=== PATIENT | male | born 1965 | race Caucasian/White ===

== ENCOUNTER 2018-01-23 10:09 | Inpatient (IN) | payer SELFPAY ==
[2018-01-23] VITALS (8 sets, daily range): BP systolic 126–171; BP diastolic 64–98; PULSE 58–81; RESP 16–20; TEMP 96.5–98.1; O2SAT 95–98
[~2018-01-23] VITALS: Ht 182.9 cm; Wt 84.9 kg
[~2018-01-23 10:09] MED LIST: IBUP800T23 PO; LISI-360 PO; ROBA750T3 PO
--- NOTE | 2018-01-23 10:48 | PD ---
HPI Chief Complaint: Abdominal Pain Time Seen by Provider: 10:43 Travel History International Travel<30 days: No Contact w/Intl Traveler<30days: No Traveled to known affect area: No History of Present Illness HPI 52-year-old male came to the emergency room brought by his for abdominal pain mostly localized in the right upper quadrant area without any radiation for past 2 months. Patient says it is progressively worsening. He has also lost 45 pounds. He does not have a primary care and wanted to be eventually checked out today. Vital signs are stable. Patient used to be an alcoholic but has been sober for 5 years. He denies doing any IV drug abuse. No history of nausea or vomiting. No history of diarrhea. Patient does not take any daily medications. He describes his stool to be pale colored for past few days. says his urine has been really dark brown in color. FORMERLY [facility] Past Medical History Narrative Medical List of his past medical, surgical, social and family history reviewed from the nursing note Anxiety: Yes Cardiovascular Problems: Yes (ENLARGED HEART) Genitourinary: Yes (CYST ON KIDNEY) Hypertension: Yes Past Surgical History Abdominal Surgery: Yes (HERNIA REPAIR) Tonsillectomy: Yes Other Surgery: Yes (HERNIA) Social History Alcohol Use: No (SOBER X5 YEARS) Tobacco Use: Yes (1/2PPD) Substance Use: Yes (MARIJUANA) Allergies-Medications (Allergen,Severity, Reaction): Coded Allergies: No Known Allergies (Unverified Adverse Reaction, Unknown, 01/23/18) Comments List of his allergies reviewed from the nursing note. Reported Meds & Prescriptions Reported Meds & Active Scripts Active No Active Prescriptions or Reported Medications Narrative Medication List of his home medications reviewed from the nursing note Review of Systems Except as stated in HPI: all other systems reviewed are Neg Gastrointestinal: Positive: Abdominal Pain Physical Exam Narrative GENERAL: Awake, alert, moderate to SKIN: Focused skin assessment warm/dry. HEAD: Atraumatic. Normocephalic. EYES: Pupils equal and round. Scleral icterus present. No injection or drainage. ENT: No nasal bleeding or discharge. Mucous membranes pink and moist. NECK: Trachea midline. No JVD. CARDIOVASCULAR: Regular rate and rhythm. No murmur appreciated. RESPIRATORY: No accessory muscle use. Clear to auscultation. Breath sounds equal bilaterally. GASTROINTESTINAL: Abdomen soft, tender in the right upper quadrant and right lumbar area, nondistended. Liver was palpable about 7 cm below the costal margin. MUSCULOSKELETAL: No obvious deformities. No clubbing. No cyanosis. No edema. NEUROLOGICAL: Awake and alert. No obvious cranial nerve deficits. Motor grossly within normal limits. Normal speech. PSYCHIATRIC: Appropriate mood and affect; insight and judgment normal. Data Data Last Documented VS Vital Signs Date Time Temp Pulse Resp B/P (MAP) Pulse Ox O2 Delivery O2 Flow Rate FiO2 01/23/18 13:20 67 20 133/77 (95) 96 01/23/18 10:17 98.1 Orders Orders Complete Blood Count With Diff (01/23/18 10:52) Comprehensive Metabolic Panel (01/23/18 10:52) Lipase (01/23/18 10:52) Urinalysis - C+S If Indicated (01/23/18 10:52) Ct Abd/Pel W Iv Contrast(Rout) (01/23/18 10:52) Iv Access Insert/Monitor (01/23/18 10:52) Ecg Monitoring (01/23/18 10:52) Oximetry (01/23/18 10:52) Sodium Chlor 0.9% 1000 Ml Inj (Ns 1000 M (01/23/18 10:52) Sodium Chloride 0.9% Flush (Ns Flush) (01/23/18 11:00) Direct Bilirubin (01/23/18 10:52) Afp, Tumor Marker (01/23/18 10:52) Iohexol 350 Inj (Omnipaque 350 Inj) (01/23/18 11:59) Admit Order (Ed Use Only) (01/23/18 13:21) Labs Laboratory Tests Test 01/23/18 11:10 01/23/18 12:15 White Blood Count 5.1 TH/MM3 Red Blood Count 4.49 MIL/MM3 Hemoglobin 14.0 GM/DL Hematocrit 41.4 % Mean Corpuscular Volume 92.1 FL Mean Corpuscular Hemoglobin 31.2 PG Mean Corpuscular Hemoglobin Concent 33.9 % Red Cell Distribution Width 17.0 % Platelet Count 135 TH/MM3 Mean Platelet Volume 9.7 FL Neutrophils (%) (Auto) 63.2 % Lymphocytes (%) (Auto) 23.5 % Monocytes (%) (Auto) 8.3 % Eosinophils (%) (Auto) 1.7 % Basophils (%) (Auto) 3.3 % Neutrophils # (Auto) 3.2 TH/MM3 Lymphocytes # (Auto) 1.2 TH/MM3 Monocytes # (Auto) 0.4 TH/MM3 Eosinophils # (Auto) 0.1 TH/MM3 Basophils # (Auto) 0.2 TH/MM3 CBC Comment AUTO DIFF Differential Comment AUTO DIFF CONFIRMED Platelet Estimate LOW Platelet Morphology Comment NORMAL Target Cells 1+ Blood Urea Nitrogen 9 MG/DL Creatinine 0.63 MG/DL Random Glucose 113 MG/DL Total Protein 8.4 GM/DL Albumin 3.2 GM/DL Calcium Level 8.7 MG/DL Alkaline Phosphatase 247 U/L Aspartate Amino Transf (AST/SGOT) 297 U/L Alanine Aminotransferase (ALT/SGPT) 214 U/L Total Bilirubin 3.7 MG/DL Direct Bilirubin 2.9 MG/DL Sodium Level 139 MEQ/L Potassium Level 3.8 MEQ/L Chloride Level 106 MEQ/L Carbon Dioxide Level 24.0 MEQ/L Anion Gap 9 MEQ/L Estimat Glomerular Filtration Rate 133 ML/MIN Lipase 279 U/L Urine Collection Type VOIDED Urine Color YELLOW Urine Turbidity CLEAR Urine pH 6.0 Urine Specific [place] 1.010 Urine Protein NEG mg/dL Urine Glucose (UA) NEG mg/dL Urine Ketones NEG mg/dL Urine Occult Blood NEG Urine Nitrite NEG Urine Bilirubin NEG Urine Urobilinogen 0.2 MG/DL Urine Leukocyte Esterase NEG Urine WBC 0-2 /hpf Urine Squamous Epithelial Cells 0-1 /hpf Urine Mucus RARE /lpf Microscopic Urinalysis Comment CULT NOT INDICATED Tumor Marker Alpha Fetoprotein 138.0 NG/ML MDM Medical Decision Making Medical Screen Exam Complete: Yes Emergency Medical Condition: Yes Medical Record Reviewed: Yes Differential Diagnosis Liver carcinoma, cholangiocarcinoma, obstructive jaundice Narrative Course 2:01 PM blood test results show elevated liver function test and direct hyperbilirubinemia. CT scan shows portal hypertension with portal vein thrombosis and edema of the ascending colon and gallbladder wall. Patient does not have a primary care or a GI specialist. I decided to admit him so that he can be evaluated by GI and possibly get an ERCP. The hospitalist has accepted the case. Procedures EKG Prior to Arrival: No Diagnosis Primary Impression: Cirrhosis Qualified Codes: K74.69 - Other cirrhosis of liver Additional Impressions: Portal hypertension Obstructive jaundice Portal vein thrombosis Elevated liver enzymes Admitting Information Admitting Physician Requests: Admit Scripts No Active Prescriptions or Reported Meds Emmie,Shravanti R. MD Jan 23, 2018 10:48
[2018-01-23] MEDS ORDERED: SODIUM CHLOR 0.9% 1000 ML INJ 1,000 ML IV SCH (10:52)
[2018-01-23] MEDS ORDERED: SODIUM CHLORIDE 0.9% FLUSH 10 ML FLUSH IV FLUSH PRN ×2 (11:00→14:00)
[2018-01-23 11:27] LABS: AUTOMATED NEUTROPHIL # 3.2 TH/MM3 (1.8-7.7); BASOPHIL # 0.2 TH/MM3 (0-0.2); BASOPHIL % 3.3 % (0.0-2.0); EOSINOPHIL # 0.1 TH/MM3 (0-0.4); EOSINOPHIL % 1.7 % (0.0-4.0); HEMATOCRIT 41.4 % (39.0-51.0); LYMPH % 23.5 % (9.0-44.0); LYMPHOCYTE # 1.2 TH/MM3 (1.0-4.8); MEAN CELL VOLUME 92.1 FL (80.0-100.0); MEAN CORPUSCULAR HEMOGLOBIN 31.2 PG (27.0-34.0); MEAN CORPUSCULAR HGB CONC 33.9 % (32.0-36.0); MEAN PLATELET VOLUME 9.7 FL (7.0-11.0); MONO % 8.3 % (0.0-8.0); MONOCYTE # 0.4 TH/MM3 (0-0.9); NEUT % 63.2 % (16.0-70.0); PLATELET COUNT 135 TH/MM3 (150-450); RED BLOOD COUNT 4.49 MIL/MM3 (4.50-5.90); WHITE BLOOD COUNT 5.1 TH/MM3 (4.0-11.0)
[2018-01-23 11:34] LABS: CHLORIDE 106 MEQ/L (98-107); SODIUM (NA) 139 MEQ/L (136-145)
[2018-01-23 11:38] LABS: ALBUMIN 3.2 GM/DL (3.4-5.0); BLOOD UREA NITROGEN 9 MG/DL (7-18); CALCIUM 8.7 MG/DL (8.5-10.1); GLUCOSE,RANDOM 113 MG/DL (74-106)
[2018-01-23 11:41] LABS: ALT (GPT) 214 U/L (12-78); AST (GOT) 297 U/L (15-37); CREATININE 0.63 MG/DL (0.60-1.30); DIRECT BILIRUBIN ADULT 2.9 MG/DL (0.0-0.2); GLOMERULAR FILTRATION RATE 133 ML/MIN (>89)
[2018-01-23 11:43] LABS: TOTAL BILIRUBIN ADULT 3.7 MG/DL (0.2-1.0); TOTAL PROTEIN 8.4 GM/DL (6.4-8.2)
[2018-01-23 11:44] LABS: ALKALINE PHOSPHATASE 247 U/L (45-117)
[2018-01-23 11:53] LABS: TARGET CELLS 1+ (NORMAL)
[2018-01-23] MEDS ORDERED: IOHEXOL 350 MG/ML 10 ML VIAL (for RAD DIAG) IVCONTRAST ONE (11:59)
--- NOTE | 2018-01-23 12:16 | RADRPT ---
EXAM DATE: 01/23/2018 12:03 PM EDT AGE/SEX: 52 years / Male INDICATIONS: Right abdominal mass and pain. Loss of appetite. CLINICAL DATA: This is the patient's initial encounter. Patient reports that signs and symptoms have been present for 3 months and indicates a pain score of 6/10. MEDICAL/SURGICAL HISTORY: Hypertension. . Hernia repair. ORAL CONTRAST: No oral contrast ingested. RADIATION DOSE: 14.60 CTDI (mGy) COMPARISON: [facility] – [place] ABDOMEN & PELVIS W/O CONTRAST, 12/12/2011. . TECHNIQUE: Multiple contiguous axial images were obtained through the abdomen and pelvis following b olus infusion of 95 ml Omnipaque 350 (iohexol) nonionic water-soluble contrast as a single exam dos e. No oral contrast ingested. Using automated exposure control and adjustment of the mA and/or kV ac cording to patient size, the radiation dose was kept as low as reasonably achievable to obtain optima l diagnostic quality images. FINDINGS: Lower chest: No acute abnormality is identified. Hepatobiliary: The liver measures 20.9 cm in length and demonstrates an abnormal nodular contour diag nostic of cirrhosis. There is heterogeneous attenuation to the liver involving both lobes without a d iscrete mass identified. Hepatic veins appear patent but there is complete thrombosis of the main por de vein and left and right branches. The portal vein thrombus extends to the lolly splenic confluenc e. There is periportal collateralization/cavernous transformation. No calcified gallstones are presen t. There is diffuse gallbladder wall edema with possible gallbladder varices. Kidneys: No hydronephrosis or stone. There is a 2.3 cm simple cyst at the lower pole the right kidney and a 18 mm simple cyst at the upper pole the left kidney. Partially calcified low-density lesion in the left mid kidney is stable measuring 1.2 cm. Adrenal Glands: Within normal limits. Spleen: Enlarged measuring approximately 14.9 cm. Pancreas: No acute abnormality is identified. The low-density masslike area adjacent to the head appe ars to be related to the thrombosed distended portal vein. Vascular: There is mild atherosclerotic disease. Esophageal varices are present. Portal vein is throm bosed. Periportal collaterals are present. Bowel/Mesentery: Stomach and small bowel demonstrate no acute finding. There is wall thickening/edema of the ascending colon. No free air is present. There is a small volume of free fluid in the abdomen and pelvis. Abdominal Wall: No hernia is visualized. Retroperitoneum: There are mildly enlarged lymph nodes in the lolly hepatis region and gastrohepatic region likely related to chronic liver disease. Bladder: No wall thickening or mass. Reproductive: Within normal limits. Inguinal: No lymphadenopathy or hernia. Musculoskeletal: No acute osseous abnormality is identified. There are degenerative changes of the audrey mbar spine. CONCLUSION: 1. No right sided abdominal mass is identified, as questioned. 2. Hepatomegaly with the liver features diagnostic of cirrhosis. There are findings indicating lolly l hypertension including splenomegaly, small volume of ascites, and esophageal varices. 3. The main portal vein and left and right branches are completely thrombosed. This is likely chroni c given the periportal collateralization/cavernous transformation. 4. Diffuse gallbladder wall edema and right colon edema is nonspecific but most likely related to th e portal hypertension. 5. Stable complex partially calcified lesion in the left mid kidney measuring 12 mm. This stability favors a benign process. Electronically signed by: Wade Beasley MD 01/23/2018 12:15 PM EDT
[2018-01-23 12:39] LABS: BILIRUBIN, URINE NEG (NEG); BLOOD, URINE NEG (NEG); GLUCOSE,URINE NEG (NEG); KETONE, URINE NEG (NEG); NITRITE,URINE NEG (NEG); URINE COLOR YELLOW (YELLW/STRAW); URINE LEUKOCYTE ESTERASE NEG (NEG)
[2018-01-23 13:09] LABS: MUCUS URINE RARE /lpf (OCC); SQUAMOUS EPITHELIAL CELL URINE 0-1 /hpf (0-5); WBC, URINE 0-2 /hpf (0-5)
[2018-01-23] MEDS ORDERED: NALOXONE HCL 0.4 MG/ML AMP IV PUSH PRN (14:00)
[2018-01-23] MEDS: traMADol HCL 50 MG TAB PO PRN (16:06)
--- NOTE | 2018-01-23 17:23 | HHI.HP ---
[facility]ician No Primary Care Physician Admission Diagnosis Obstructive jaundice, portal hypertension Diagnoses: (1) Obstructive jaundice (2) Elevated liver enzymes (3) Cirrhosis (4) Portal hypertension (5) Portal vein thrombosis Chief Complaint: Abdominal pain Travel History International Travel<30 Days: No Contact w/Intl Traveler <30 Da: No Traveled to Known Affected Are: No History of Present Illness This is a 52-year-old male patient with a known medical history of cardiomyopathy, hypertension and history of alcohol abuse who presented to the ED with complaints of abdominal pain. Patient states that over the past 2 months he has had intermittent right upper quadrant pain, characterized as stabbing, worse with movement and bandlike across his abdomen. Patient states that the pain was dull in the beginning and progressively worsened over the past couple months. It should be noted that patient also lost a total of 45 pounds without trying over the past 2 months. He does admit to associated nausea with the pain, vomiting 2 this morning. Emesis was dark brown in color. He denies any recent black or bloody stools. He denies ever undergoing a colonoscopy or EGD in the past. Does admit to smoking half pack per day cigarettes for last 25 years. As well as smoking marijuana daily. Patient does have a history of alcohol, states he has been sober for over 5 years now. He denies any IV drug use. Patient does not take medicines on a daily basis. Does not follow with the PCP due to lack of insurance. Review of Systems Constitutional: DENIES: Fatigue, Fever, Chills, Dizziness Endocrine: DENIES: Polydipsia Eyes: DENIES: Diplopia Ears, nose, mouth, throat: DENIES: Vertigo Respiratory: DENIES: Cough, Sputum production, Shortness of breath Cardiovascular: DENIES: Chest pain, Palpitations, Syncope, Lower Extremity Edema Gastrointestinal: COMPLAINS OF: Abdominal pain, Nausea, Vomiting, DENIES: Black stools, Bloody stools, Constipation, Diarrhea Genitourinary: DENIES: Sexual dysfunction Musculoskeletal: DENIES: Joint pain Integumentary: COMPLAINS OF: Abnormal pigmentation (Jaundiced) Hematologic/lymphatic: DENIES: Bruising Immunologic/allergic: DENIES: Eczema Neurologic: DENIES: Abnormal gait Psychiatric: DENIES: Anxiety Except as stated in HPI: all other systems reviewed are Neg Past Family Social History Past Medical History Reported cardiomyopathy History of renal cyst Hypertension History of alcohol abuse Tobacco abuse Past Surgical History History of hernia repair at the age of [age] years old. Tonsillectomy Reported Medications Active No Active Prescriptions or Reported Medications Allergies: Coded Allergies: No Known Allergies (Unverified Adverse Reaction, Unknown, 01/23/18) Active Ordered Medications Current Medications Medications (Trade) Dose Ordered Sig/Master Route Start Time Stop Time Status Last Admin (NS Flush) 2 ml UNSCH PRN IV FLUSH 01/23/18 14:00 (NS Flush) 2 ml BID IV FLUSH 01/23/18 21:00 (Reglan Inj) 5 mg Q6H PRN IV PUSH 01/23/18 14:00 (Narcan Inj) 0.4 mg UNSCH PRN IV PUSH 01/23/18 14:00 (Gail-Colace) 1 tab BID PO 01/23/18 21:00 (Toradol Inj) 30 mg Q6HR IV PUSH 01/23/18 18:00 01/28/18 17:59 (Ultram) 50 mg Q8H PRN PO 01/23/18 15:45 01/23/18 16:06 Family History Denies any significant family medical history. Social History Does admit to smoking half pack per day for the last 25 years. Denies any alcohol use, states he has been sober for 5 years. Does admit to daily marijuana use. Physical Exam Vital Signs Vital Signs Date Time Temp Pulse Resp B/P (MAP) Pulse Ox O2 Delivery O2 Flow Rate FiO2 01/23/18 15:07 96.5 58 20 153/82 (105) 95 01/23/18 14:29 01/23/18 13:48 66 18 126/64 (84) 96 Room Air 01/23/18 13:20 67 20 133/77 (95) 96 01/23/18 12:16 65 20 139/87 (104) 97 01/23/18 11:12 70 20 139/90 (106) 97 01/23/18 11:02 95 01/23/18 10:17 98.1 81 16 171/98 (122) 98 Physical Exam GENERAL: Well-developed, well-nourished patient in NAD. SKIN: Warm and dry. No rash. Jaundiced HEAD: Normocephalic. Atraumatic. EYES: Pupils equal and round. No scleral icterus. No injection or drainage. ENT: No nasal bleeding or discharge. Mucous membranes pink and moist. NECK: Supple. Trachea midline. CARDIOVASCULAR: Regular rate and rhythm. S1, S2 noted. No murmur appreciated. RESPIRATORY: No accessory muscle use. Clear to auscultation. Breath sounds equal bilaterally. GASTROINTESTINAL: Abdomen soft, nondistended. Normoactive bowel sounds x4. Tenderness noted to right upper quadrant. MUSCULOSKELETAL: No obvious deformities. Extremities without clubbing, cyanosis , or edema. NEUROLOGICAL: Awake and alert. No obvious cranial nerve deficits. Motor grossly within normal limits. 5/5 muscle strength in bilateral upper and lower extremities. Normal speech. PSYCHIATRIC: Appropriate mood and affect; insight and judgment normal. Laboratory Laboratory Tests Test 01/23/18 11:10 01/23/18 12:15 01/23/18 14:47 White Blood Count 5.1 Red Blood Count 4.49 Hemoglobin 14.0 Hematocrit 41.4 Mean Corpuscular Volume 92.1 Mean Corpuscular Hemoglobin 31.2 Mean Corpuscular Hemoglobin Concent 33.9 Red Cell Distribution Width 17.0 Platelet Count 135 Mean Platelet Volume 9.7 Neutrophils (%) (Auto) 63.2 Lymphocytes (%) (Auto) 23.5 Monocytes (%) (Auto) 8.3 Eosinophils (%) (Auto) 1.7 Basophils (%) (Auto) 3.3 Neutrophils # (Auto) 3.2 Lymphocytes # (Auto) 1.2 Monocytes # (Auto) 0.4 Eosinophils # (Auto) 0.1 Basophils # (Auto) 0.2 CBC Comment AUTO DIFF Differential Comment AUTO DIFF CONFIRMED Platelet Estimate LOW Platelet Morphology Comment NORMAL Target Cells 1+ Blood Urea Nitrogen 9 Creatinine 0.63 Random Glucose 113 Total Protein 8.4 Albumin 3.2 Calcium Level 8.7 Alkaline Phosphatase 247 Aspartate Amino Transf (AST/SGOT) 297 Alanine Aminotransferase (ALT/SGPT) 214 Total Bilirubin 3.7 Direct Bilirubin 2.9 Sodium Level 139 Potassium Level 3.8 Chloride Level 106 Carbon Dioxide Level 24.0 Anion Gap 9 Estimat Glomerular Filtration Rate 133 Lipase 279 Urine Collection Type VOIDED Urine Color YELLOW Urine Turbidity CLEAR Urine pH 6.0 Urine Specific [place] 1.010 Urine Protein NEG Urine Glucose (UA) NEG Urine Ketones NEG Urine Occult Blood NEG Urine Nitrite NEG Urine Bilirubin NEG Urine Urobilinogen 0.2 Urine Leukocyte Esterase NEG Urine WBC 0-2 Urine Squamous Epithelial Cells 0-1 Urine Mucus RARE Microscopic Urinalysis Comment CULT NOT INDICATED Tumor Marker Alpha Fetoprotein 138.0 Result Diagram: 01/23/18 1110 01/23/18 1110 Imaging Last Impressions Abdomen/Pelvis CT 01/23/18 1052 Signed Impressions: CONCLUSION: 1. No right sided abdominal mass is identified, as questioned. 2. Hepatomegaly with the liver features diagnostic of cirrhosis. There are fin dings indicating portal hypertension including splenomegaly, small volume of as cites, and esophageal varices. 3. The main portal vein and left and right branches are completely thrombosed. This is likely chronic given the periportal collateralization/cavernous transf ormation. 4. Diffuse gallbladder wall edema and right colon edema is nonspecific but mos t likely related to the portal hypertension. 5. Stable complex partially calcified lesion in the left mid kidney measuring 12 mm. This stability favors a benign process. Septic Shock Reassessment Septic shock perfusion: reassessment completed Caprini VTE Risk Assessment Caprini VTE Risk Assessment: No/Low Risk (score <= 1) Caprini Risk Assessment Model Point Value = 1 Point Value = 2 Point Value = 3 Point Value = 5 Age 41-60 Minor surgery BMI > 25 kg/m2 Swollen legs Varicose veins or History of unexplained or recurrent spontaneous Oral contraceptives or hormone replacement Sepsis (< 1 month) Serious lung disease, including pneumonia (< 1 month) Abnormal pulmonary function Acute myocardial infarction Congestive heart failure (< 1 month) History of inflammatory bowel disease Medical patient at bed rest Age 61-74 Arthroscopic surgery Major open surgery (> 45 min) Laparoscopic surgery (> 45 min) Malignancy Confined to bed (> 72 hours) Immobilizing plaster cast Central venous access Age >= 75 History of VTE Family history of VTE Factor V Leiden Prothrombin [id number] Lupus anticoagulant Anticardiolipin antibodies Elevated serum homocysteine Heparin-induced thrombocytopenia Other congenital or acquired thrombophilia Stroke (< 1 month) Elective arthroplasty Hip, pelvis, or leg fracture Acute spinal cord injury (< 1 month) Prophylaxis Regimen Total Risk Factor Score Risk Level Prophylaxis Regimen 0-1 Low Early ambulation 2 Moderate Order ONE of the following: *Sequential Compression Device (SCD) *Heparin 5000 units SQ BID 3-4 Higher Order ONE of the following medications: *Heparin 5000 units SQ TID *Enoxaparin/Lovenox 40 mg SQ daily (WT < 150 kg, CrCl > 30 mL/min) *Enoxaparin/Lovenox 30 mg SQ daily (WT < 150 kg, CrCl > 10-29 mL/min) *Enoxaparin/Lovenox 30 mg SQ BID (WT < 150 kg, CrCl > 30 mL/min) AND/OR *Sequential Compression Device (SCD) 5 or more Highest Order ONE of the following medications: *Heparin 5000 units SQ TID (Preferred with Epidurals) *Enoxaparin/Lovenox 40 mg SQ daily (WT < 150 kg, CrCl > 30 mL/min) *Enoxaparin/Lovenox 30 mg SQ daily (WT < 150 kg, CrCl > 10-29 mL/min) *Enoxaparin/Lovenox 30 mg SQ BID (WT < 150 kg, CrCl > 30 mL/min) AND *Sequential Compression Device (SCD) Assessment and Plan Problem List: (1) Portal vein thrombosis ICD Code: I81 - Portal vein thrombosis Status: Acute (2) Portal hypertension ICD Code: K76.6 - Portal hypertension Status: Acute (3) Cirrhosis ICD Code: K74.60 - Unspecified cirrhosis of liver Status: Acute (4) Obstructive jaundice ICD Code: K83.8 - Other specified diseases of biliary tract Status: Acute (5) Elevated liver enzymes ICD Code: R74.8 - Abnormal levels of other serum enzymes Status: Acute Assessment and Plan This is a 52-year-old male patient with a known medical history of cardiomyopathy, hypertension and history of alcohol abuse who presented to the ED with complaints of abdominal pain. Obstructive jaundice Portal hypertension Cirrhosis Transaminitis suspect secondary to above History of alcohol abuse - Abdominal/pelvis CT showing no mass. Mother likely. Cirrhosis. Portal hypertension. Splenomegaly. Small ascites. Esophageal varices. - Will obtain an upper abdominal/liver ultrasound. Follow. - Consult placed to gastroenterology, input and recommendations pending. - Control pain, Ultram available per pain scale. Toradol as well. - CBC unremarkable, mild thrombocytopenia. Will follow. - Tumor marker 138. Rule out malignancy. - Hepatitis panel pending. Hypertension: Diet controlled. Will monitor blood pressure trends. Tobacco abuse: Encouraged cessation. Nicotine patch offered, refused. DVT prophylaxis: SCDs. Discussed Condition With Patient. Physician Certification 2 Midnight Certification Type: Admission for Inpatient Services Order for Inpatient Services The services are ordered in accordance with Medicare regulations or non- Medicare payer requirements, as applicable. In the case of services not specified as inpatient-only, they are appropriately provided as inpatient services in accordance with the 2-midnight benchmark. Estimated LOS (days): 3 3 days is the estimated time the patient will need to remain in the hospital, assuming treatment plan goals are met and no additional complications. Post-Hospital Plan: HomeNot yet determined Problem Qualifiers (1) Cirrhosis: Qualified Codes: K74.69 - Other cirrhosis of liver Maria M Quintana Jan 23, 2018 17:23
[2018-01-23] MEDS: KETOROLAC TROMETHAMINE 30 MG/ML (IVP) VIAL IV PUSH SCH ×2 (18:15→23:03)
[2018-01-23] MEDS: DOCUSATE SODIUM 50 MG/SENNA 8.6 MG TAB PO SCH (20:47)
[2018-01-23] MEDS: SODIUM CHLORIDE 0.9% FLUSH 10 ML FLUSH IV FLUSH SCH (20:47)
[2018-01-24 00:02] VITALS: BP 125/84; PULSE 57; RESP 20; TEMP 96.8; O2SAT 97
[2018-01-24] MEDS: KETOROLAC TROMETHAMINE 30 MG/ML (IVP) VIAL IV PUSH SCH ×3 (05:15→17:49)
[2018-01-24 05:57] LABS: AUTOMATED NEUTROPHIL # 3.3 TH/MM3 (1.8-7.7); BASOPHIL # 0.1 TH/MM3 (0-0.2); BASOPHIL % 1.7 % (0.0-2.0); EOSINOPHIL # 0.1 TH/MM3 (0-0.4); EOSINOPHIL % 2.9 % (0.0-4.0); HEMATOCRIT 39.7 % (39.0-51.0); HEMOGLOBIN 13.5 GM/DL (13.0-17.0); LYMPH % 25.9 % (9.0-44.0); LYMPHOCYTE # 1.3 TH/MM3 (1.0-4.8); MEAN CELL VOLUME 93.2 FL (80.0-100.0); MEAN CORPUSCULAR HEMOGLOBIN 31.6 PG (27.0-34.0); MEAN CORPUSCULAR HGB CONC 33.9 % (32.0-36.0); MEAN PLATELET VOLUME 9.4 FL (7.0-11.0); MONO % 6.6 % (0.0-8.0); MONOCYTE # 0.3 TH/MM3 (0-0.9); NEUT % 62.9 % (16.0-70.0); PLATELET COUNT 115 TH/MM3 (150-450); RED BLOOD COUNT 4.26 MIL/MM3 (4.50-5.90); RED CELL DISTRIBUTION WIDTH 17.2 % (11.6-17.2); WHITE BLOOD COUNT 5.1 TH/MM3 (4.0-11.0)
[2018-01-24 06:33] LABS: CHLORIDE 107 MEQ/L (98-107); SODIUM (NA) 140 MEQ/L (136-145)
[2018-01-24 06:38] LABS: ALBUMIN 2.9 GM/DL (3.4-5.0); BICARBONATE 25.2 MEQ/L (21.0-32.0); BLOOD UREA NITROGEN 9 MG/DL (7-18); GLUCOSE,RANDOM 95 MG/DL (74-106)
[2018-01-24 06:40] LABS: CALCIUM 8.6 MG/DL (8.5-10.1)
[2018-01-24 06:41] LABS: ALT (GPT) 185 U/L (12-78); AST (GOT) 266 U/L (15-37); CREATININE 0.56 MG/DL (0.60-1.30); GLOMERULAR FILTRATION RATE 152 ML/MIN (>89)
[2018-01-24 06:43] LABS: TOTAL BILIRUBIN ADULT 3.7 MG/DL (0.2-1.0); TOTAL PROTEIN 7.8 GM/DL (6.4-8.2)
[2018-01-24 06:44] LABS: ALKALINE PHOSPHATASE 225 U/L (45-117)
[2018-01-24 07:39] VITALS: BP 143/82; PULSE 56; RESP 18; TEMP 96.2; O2SAT 95
--- NOTE | 2018-01-24 08:10 | HHI.PR ---
Subjective Remarks Follow up abdominal pain, cirrhosis and transaminitis. Patient seen and examined , lying in bed comfortably in [facility], [place] at bedside. Patient states he slept well overnight, no continued abdominal pain, controlled on current pain medication regimen. Afebrile overnight. Tolerated PO intake last evening, no nausea or vomiting. Objective Vitals Vital Signs Date Time Temp Pulse Resp B/P (MAP) Pulse Ox O2 Delivery O2 Flow Rate FiO2 01/24/18 07:39 96.2 56 18 143/82 (102) 95 01/24/18 00:02 96.8 57 20 125/84 (98) 97 01/23/18 20:47 97.1 60 20 158/94 (115) 97 01/23/18 15:07 96.5 58 20 153/82 (105) 95 01/23/18 14:29 01/23/18 13:48 66 18 126/64 (84) 96 Room Air 01/23/18 13:20 67 20 133/77 (95) 96 01/23/18 12:16 65 20 139/87 (104) 97 01/23/18 11:12 70 20 139/90 (106) 97 01/23/18 11:02 95 01/23/18 10:17 98.1 81 16 171/98 (122) 98 I/O 01/23/18 01/23/18 01/23/18 01/24/18 01/24/18 01/24/18 07:00 15:00 23:00 07:00 15:00 23:00 Intake Total 600 ml 600 ml Balance 600 ml 600 ml Intake Oral 600 ml 600 ml # Voids 1 2 4 Result Diagram: 01/24/18 0525 01/24/18 0525 Imaging Last Impressions Liver Ultrasound 01/24/18 0000 Signed Impressions: CONCLUSION: 1. Cirrhotic liver. 2. Portal vein thrombosis with cavernous transformation. 3. The patient had a CT of the abdomen performed on 01/23/2018 which delineates these issues. 4. Nonspecific gallbladder wall thickening. This can be seen with cirrhosis. G allstones are not seen. 5. Intrahepatic biliary duct dilatation is not seen. The common bile duct is n ot visualized Abdomen/Pelvis CT 01/23/18 1052 Signed Impressions: CONCLUSION: 1. No right sided abdominal mass is identified, as questioned. 2. Hepatomegaly with the liver features diagnostic of cirrhosis. There are fin dings indicating portal hypertension including splenomegaly, small volume of as cites, and esophageal varices. 3. The main portal vein and left and right branches are completely thrombosed. This is likely chronic given the periportal collateralization/cavernous transf ormation. 4. Diffuse gallbladder wall edema and right colon edema is nonspecific but mos t likely related to the portal hypertension. 5. Stable complex partially calcified lesion in the left mid kidney measuring 12 mm. This stability favors a benign process. Objective Remarks GENERAL: Well-developed, well-nourished patient in NAD. SKIN: Warm and dry. No rash. Jaundiced HEAD: Normocephalic. Atraumatic. EYES: Pupils equal and round. No scleral icterus. No injection or drainage. ENT: No nasal bleeding or discharge. Mucous membranes pink and moist. NECK: Supple. Trachea midline. CARDIOVASCULAR: Regular rate and rhythm. S1, S2 noted. No murmur appreciated. RESPIRATORY: No accessory muscle use. Clear to auscultation. Breath sounds equal bilaterally. GASTROINTESTINAL: Abdomen soft, nondistended. Normoactive bowel sounds x4. Tenderness noted to right upper quadrant. MUSCULOSKELETAL: No obvious deformities. Extremities without clubbing, cyanosis , or edema. NEUROLOGICAL: Awake and alert. No obvious cranial nerve deficits. Motor grossly within normal limits. 5/5 muscle strength in bilateral upper and lower extremities. Normal speech. PSYCHIATRIC: Appropriate mood and affect; insight and judgment normal. A/P Problem List: (1) Portal vein thrombosis ICD Code: I81 - Portal vein thrombosis Status: Acute (2) Portal hypertension ICD Code: K76.6 - Portal hypertension Status: Acute (3) Cirrhosis ICD Code: K74.60 - Unspecified cirrhosis of liver Status: Acute (4) Obstructive jaundice ICD Code: K83.8 - Other specified diseases of biliary tract Status: Acute (5) Elevated liver enzymes ICD Code: R74.8 - Abnormal levels of other serum enzymes Status: Acute Assessment and Plan This is a 52-year-old male patient with a known medical history of cardiomyopathy, hypertension and history of alcohol abuse who presented to the ED with complaints of abdominal pain. Obstructive jaundice Portal hypertension Cirrhosis Transaminitis suspect secondary to above History of alcohol abuse - Abdominal/pelvis CT showing no mass. Most likely cirrhosis. Portal hypertension. Splenomegaly. Small ascites. Esophageal varices. - Abdominal/liver ultrasound showing cirrhotic liver. Portal vein thrombosis with cavernous transformation. No gallbladder wall thickening. No gallstones. - Consult placed to gastroenterology, input and recommendations pending. - Control pain, Ultram available per pain scale. Toradol as well. - CBC showing mild thrombocytopenia. Continue to monitor. - Tumor marker 138. Rule out malignancy. Appreciate GI recommendations. - Hepatitis panel negative for hepatitis a and B. Hepatitis C reactive. Awaiting PCR and genotype, pending. - Patient states that he has not drank alcohol for over 5 years now. Continued encouragement of cessation. Hypertension: Not on any medication at home. Blood pressure mildly elevated, will start amlodipine. Will monitor blood pressure trends. Tobacco abuse: Encouraged cessation. Nicotine patch offered, refused. DVT prophylaxis: SCDs. Discharge Planning Awaiting GI recommendations and clinical improvement. Most likely 24-48 hours for DC. Problem Qualifiers (1) Cirrhosis: Qualified Codes: K74.69 - Other cirrhosis of liver Maria M Quintana Jan 24, 2018 08:10
[2018-01-24] MEDS: DOCUSATE SODIUM 50 MG/SENNA 8.6 MG TAB PO SCH ×2 (09:00→21:00)
[2018-01-24] MEDS: SODIUM CHLORIDE 0.9% FLUSH 10 ML FLUSH IV FLUSH SCH ×2 (09:39→21:00)
--- NOTE | 2018-01-24 11:19 | RADRPT ---
EXAM DATE: 01/24/2018 11:01 AM EDT AGE/SEX: 52 years / Male INDICATIONS: Jaundice. Increased lab values. CLINICAL DATA: This is the patient's initial encounter. Patient reports that signs and symptoms have been present for 2 months and indicates a pain score of 5/10. MEDICAL/SURGICAL HISTORY: Hypertension. Cardiomegaly. Renal cyst. ETOH abuse. Tonsillectomy. H ernia repair. COMPARISON: [facility], CT ABDOMEN & PELVIS W CONTRAST, 01/23/2018. . MEASUREMENTS (cm x cm x cm): Liver:__ 19.0 cm length Common Bile Duct:__ Nonvisualized Right Kidney:__ 11.6 x 5.7 x 5.9 cm FINDINGS: Liver: The liver is extremely heterogeneous. It has a nodular surface. There is ascites seen around t he liver. The portal vein is occluded. There are vascular structures in the lolly hepatis likely rela beatrice to cavernous transformation. These findings are much better demonstrated on the CT from 01/23/2018 . Common Duct: Not visualized. Gallbladder: The gallbladder wall is thickened. Gallstones are not seen. Gallbladder Wall: >10 mm Pancreas: There is a hypoechoic area seen adjacent to the pancreatic head possibly related to a throm bosed portal vein confluence. It is thought this is better visualized on the CT examination from 01/23. Right Kidney: There is a 2.6 cm cyst at the inferior aspect of the right kidney otherwise the right kidney appears normal. Process is seen. Other: None. CONCLUSION: 1. Cirrhotic liver. 2. Portal vein thrombosis with cavernous transformation. 3. The patient had a CT of the abdomen performed on 01/23/2018 which delineates these issues. 4. Nonspecific gallbladder wall thickening. This can be seen with cirrhosis. Gallstones are not seen . 5. Intrahepatic biliary duct dilatation is not seen. The common bile duct is not visualized Electronically signed by: Wade Urban MD 01/24/2018 11:17 AM EDT
[2018-01-24 11:27] VITALS: BP 148/83; PULSE 61; RESP 18; TEMP 97.1; O2SAT 96
[2018-01-24] MEDS: amLODIPine BESYLATE 5 MG TAB PO SCH (12:03)
[2018-01-24 15:55] VITALS: BP 149/86; PULSE 65; RESP 18; TEMP 96.6; O2SAT 95
[2018-01-24 20:00] VITALS: BP 132/90; PULSE 58; RESP 20; TEMP 97.8; O2SAT 98
[2018-01-24] MEDS: traMADol HCL 50 MG TAB PO PRN (21:45)
[2018-01-25] VITALS: BP 151/96; PULSE 56; RESP 20; TEMP 96.4; O2SAT 97
[2018-01-25] MEDS: KETOROLAC TROMETHAMINE 30 MG/ML (IVP) VIAL IV PUSH SCH ×5 (00:35→23:39)
[2018-01-25 03:40] VITALS: BP 137/94; PULSE 73; RESP 18; TEMP 96.7
[2018-01-25 06:50] LABS: ALBUMIN 2.9 GM/DL (3.4-5.0)
[2018-01-25 06:54] LABS: INDIRECT BILIRUBIN 1.1 MG/DL (0.0-0.8); TOTAL BILIRUBIN ADULT 4.1 MG/DL (0.2-1.0); TOTAL PROTEIN 7.9 GM/DL (6.4-8.2)
[2018-01-25 07:50] VITALS: BP 153/85; PULSE 64; RESP 18; TEMP 96.5; O2SAT 98
[2018-01-25] MEDS: DOCUSATE SODIUM 50 MG/SENNA 8.6 MG TAB PO SCH ×2 (08:10→20:11)
[2018-01-25] MEDS: SODIUM CHLORIDE 0.9% FLUSH 10 ML FLUSH IV FLUSH SCH ×2 (08:10→20:11)
[2018-01-25] MEDS: amLODIPine BESYLATE 5 MG TAB PO SCH (08:10)
[2018-01-25] MEDS: SPIRONOLACTONE 50 MG TAB PO SCH (08:10)
[2018-01-25] MEDS: FUROSEMIDE 20 MG TAB PO SCH (08:10)
[2018-01-25 11:50] VITALS: BP 132/96; PULSE 76; RESP 18; TEMP 96.8; O2SAT 95
[2018-01-25] MEDS ORDERED: HEPARIN - 10,000 UNITS/ML IV ADDITIVE IV PUSH STA (13:23)
--- NOTE | 2018-01-25 13:32 | HHI.PR ---
Subjective Remarks Patient seen and examined today for follow-up on hyperbilirubinemia, elevated liver enzymes, hepatitis C. Patient is lying in bed comfortably. Patient denies any new complaints. Patient is hungry. Vital signs are stable, patient remains afebrile Objective Vitals Vital Signs Date Time Temp Pulse Resp B/P (MAP) Pulse Ox O2 Delivery O2 Flow Rate FiO2 01/25/18 11:50 96.8 76 18 132/96 (108) 95 01/25/18 07:50 96.5 64 18 153/85 (107) 98 01/25/18 00:00 96.4 56 20 151/96 (114) 97 01/24/18 20:00 97.8 58 20 132/90 (104) 98 01/24/18 15:55 96.6 65 18 149/86 (107) 95 I/O 01/24/18 01/24/18 01/24/18 01/25/18 01/25/18 01/25/18 06:59 14:59 22:59 06:59 14:59 22:59 Intake Total 600 ml 480 ml Balance 600 ml 480 ml Intake Oral 600 ml 480 ml # Voids 4 4 3 # Bowel Movements 3 0 Result Diagram: 01/24/18 0525 01/24/18 0525 Imaging Last Impressions Liver Ultrasound 01/24/18 0000 Signed Impressions: CONCLUSION: 1. Cirrhotic liver. 2. Portal vein thrombosis with cavernous transformation. 3. The patient had a CT of the abdomen performed on 01/23/2018 which delineates these issues. 4. Nonspecific gallbladder wall thickening. This can be seen with cirrhosis. G allstones are not seen. 5. Intrahepatic biliary duct dilatation is not seen. The common bile duct is n ot visualized Abdomen/Pelvis CT 01/23/18 1052 Signed Impressions: CONCLUSION: 1. No right sided abdominal mass is identified, as questioned. 2. Hepatomegaly with the liver features diagnostic of cirrhosis. There are fin dings indicating portal hypertension including splenomegaly, small volume of as cites, and esophageal varices. 3. The main portal vein and left and right branches are completely thrombosed. This is likely chronic given the periportal collateralization/cavernous transf ormation. 4. Diffuse gallbladder wall edema and right colon edema is nonspecific but mos t likely related to the portal hypertension. 5. Stable complex partially calcified lesion in the left mid kidney measuring 12 mm. This stability favors a benign process. Objective Remarks GENERAL: Well-developed, well-nourished, in no acute distress. alert and orientated HEENT: Head is normocephalic without any lesions or masses noted. Facial features are symmetric. Eyes: Extraocular muscles are intact. Conjunctivae and sclera are anicteric NECK: Supple without any masses. Trachea midline no deviation. No JVD, CARDIAC: Regular rhythm, regular rate. S1/S2 are heard. No murmurs gallops or rubs. LUNGS: Clear to auscultation bilaterally. No wheeze, rhonchi or rales. No use of accessory muscles on inspiration or expiration. ABDOMEN: Soft, nontender. Nondistended. Bowel sounds heard in all 4 quadrants. No organomegaly or masses. Negative rebound, negative guarding EXTREMITIES: No edema, pulses are equal bilaterally. No cyanosis or clubbing NEUROLOGY: Mood and affect appear appropriate. Cranial nerves II through XII grossly intact. Moving all extremities, speech is clear Urinary Catheter: No Vascular Central Line Catheter: No A/P Assessment and Plan Portal vein thrombosis -CT scan does confirm that patient has significant portal vein thrombosis -Start heparin IV until further workup can be done and no need for any procedures Obstructive jaundice, cirrhosis, transaminitis with history of alcohol abuse -Continue to monitor laboratory studies, bilirubin continues to trend upward -Awaiting MRCP -GI consulted for further recommendations -Tumor markers with AFP are elevated, CA-19-9 elevated -Hepatitis panel does indicate hepatitis C infection, genotype and viral load have been requested Portal hypertension -Increased to amlodipine 10 mg daily -Continue spironolactone, Lasix Tobacco abuse -Encouraged cessation -Nicotine patch was offered, however patient refused DVT prevention -Sequential compression devices, heparin IV Discharge Planning Discharge planning 48-72 hours depending on patient response to treatment and recommendations from Abel Guillory Jan 25, 2018 13:32
--- NOTE | 2018-01-25 13:40 | RADRPT ---
EXAM DATE: 01/25/2018 12:00 PM EDT AGE/SEX: 52 years / Male INDICATIONS: . Hepatic ca/CBD obstruction. CLINICAL DATA: This is the patient's initial encounter. Patient reports that signs and symptoms have been present for 3 days and indicates a pain score of 3/10. MEDICAL/SURGICAL HISTORY: Hypertension. Cardiovascular disease. Inguinal hernia repair. Tonsi llectomy. COMPARISON: [facility], CT ABDOMEN & PELVIS W CONTRAST, 01/23/2018. . TECHNIQUE: Multisequence, multiplanar MRI examination was performed without contrast and after the in travenous administration of 16 ml Omniscan (gadodiamide) contrast as a single exam dose. FINDINGS: Liver: The liver is enlarged measuring 20.5 cm in length. There is moderate diffuse heterogeneous si gnal throughout the entire liver with irregularity involving the outer margins of the liver. This is characteristic of cirrhosis. There continues to be evidence of portal venous thrombosis. This was pre viously described on patient's CT scan of the abdomen. No definite focal mass is demonstrated. There is a trace of fluid adjacent to the liver. Intrahepatic Bile Ducts: There is no intrahepatic biliary ductal dilatation. Common Bile Duct: There is limited visualization of the common bile duct. However, the visualized po rtions are nondilated with a diameter of approximately 2-3 mm. Gallbladder: No definite stones are seen in the gallbladder. There is some symmetric thickening of t he gallbladder wall. There is a small amount of fluid around the gallbladder. Pancreas: There is nonspecific diffuse prominence involving the head of the pancreas. No definite in trinsic mass is seen. The body and tail the pancreas are grossly unremarkable. Several benign-appearing bilateral renal cysts are demonstrated. The largest cyst measures 2.4 cm katey ng the lower pole the right kidney. CONCLUSION: 1. There is hepatomegaly with moderate diffuse heterogeneous signal throughout the liver characteris tic of hepatocellular disease such as cirrhosis. 2. No dilated biliary ducts are demonstrated at this time. 3. There is thickening of the gallbladder wall with some fluid around the gallbladder suggestive of at least chronic gallbladder disease. No definite stones are demonstrated. 4. There is a trace amount of ascites adjacent to the liver. 5. There appears to be complete thrombosis involving the portal venous system. 6. There is diffuse prominence involving the head of the pancreas suggestive of edema and/or swellin g. This may be related to the portal venous thrombosis versus focal pancreatitis. 7. Bilateral benign-appearing renal cysts. Electronically signed by: Porter Harris MD 01/25/2018 1:39 PM EDT
[2018-01-25 13:43] LABS: HEMATOCRIT 40.6 % (39.0-51.0); HEMOGLOBIN 13.6 GM/DL (13.0-17.0); MEAN CELL VOLUME 94.1 FL (80.0-100.0); MEAN CORPUSCULAR HEMOGLOBIN 31.4 PG (27.0-34.0); MEAN CORPUSCULAR HGB CONC 33.4 % (32.0-36.0); MEAN PLATELET VOLUME 9.4 FL (7.0-11.0); PLATELET COUNT 143 TH/MM3 (150-450); RED BLOOD COUNT 4.32 MIL/MM3 (4.50-5.90); RED CELL DISTRIBUTION WIDTH 17.5 % (11.6-17.2); WHITE BLOOD COUNT 6.2 TH/MM3 (4.0-11.0)
[2018-01-25] MEDS ORDERED: HEPARIN SODIUM - IV 10,000 UNITS/10 ML VIAL IV PUSH STA (13:44)
[2018-01-25 13:51] LABS: INTERNATIONAL NORMALIZED RATIO 1.3 RATIO; PROTHROMBIN TIME - PATIENT 13.3 SEC (9.8-11.6)
[2018-01-25] MEDS ORDERED: GADODIAMIDE PF 287 MG/ML 20 ML VIAL (for RAD MRI) IV PUSH ONE (13:58)
[2018-01-25] MEDS: HEPARIN-D5W 25,000 U/250 ML 250 ML IV PRN (14:28)
[2018-01-25 16:01] VITALS: BP 137/94; PULSE 73; RESP 18; TEMP 96.7; O2SAT 95
[2018-01-25] MEDS: METOCLOPRAMIDE HCL 10 MG/2 ML VIAL IV PUSH PRN (17:31)
[2018-01-25] MEDS: traMADol HCL 50 MG TAB PO PRN (18:03)
[2018-01-25] MEDS ORDERED: HEPARIN SODIUM - IV 10,000 UNITS/10 ML VIAL IV PUSH PRN ×2 (19:30)
[2018-01-25 20:00] VITALS: BP 140/82; PULSE 70; RESP 20; TEMP 97.2; O2SAT 97
[2018-01-26] VITALS: BP 124/82; PULSE 65; RESP 20; TEMP 96.6; O2SAT 98
[2018-01-26 04:00] VITALS: BP 157/95; PULSE 64; RESP 20; TEMP 96.5; O2SAT 97
[2018-01-26] MEDS: KETOROLAC TROMETHAMINE 30 MG/ML (IVP) VIAL IV PUSH SCH ×3 (05:30→16:32)
[2018-01-26 07:02] LABS: ALBUMIN 2.9 GM/DL (3.4-5.0)
[2018-01-26] MEDS: HEPARIN-D5W 25,000 U/250 ML 250 ML IV PRN (07:06)
[2018-01-26 07:07] LABS: DIRECT BILIRUBIN ADULT 3.7 MG/DL (0.0-0.2); INDIRECT BILIRUBIN 1.5 MG/DL (0.0-0.8); TOTAL BILIRUBIN ADULT 5.2 MG/DL (0.2-1.0)
[2018-01-26] MEDS: SODIUM CHLORIDE 0.9% FLUSH 10 ML FLUSH IV FLUSH SCH ×2 (07:35→20:56)
[2018-01-26] MEDS: SPIRONOLACTONE 50 MG TAB PO SCH (07:35)
[2018-01-26] MEDS: METOCLOPRAMIDE HCL 10 MG/2 ML VIAL IV PUSH PRN ×2 (07:36→16:32)
[2018-01-26] MEDS: amLODIPine BESYLATE 5 MG TAB PO SCH (07:36)
[2018-01-26] MEDS: DOCUSATE SODIUM 50 MG/SENNA 8.6 MG TAB PO SCH ×2 (07:36→20:56)
[2018-01-26] MEDS: FUROSEMIDE 20 MG TAB PO SCH (07:36)
[2018-01-26] MEDS: traMADol HCL 50 MG TAB PO PRN ×2 (07:36→16:33)
[2018-01-26 08:01] VITALS: BP 152/89; PULSE 64; RESP 18; TEMP 96.3; O2SAT 96
[2018-01-26 11:52] LABS: HCV RNA PCR IU/ML 266000 IU/mL (Not Detected)
[2018-01-26 12:00] VITALS: BP 137/95; PULSE 73; RESP 18; TEMP 97.5; O2SAT 97
[2018-01-26] MEDS: RIVAROXABAN 15 MG TAB PO SCH ×2 (12:11→20:56)
--- NOTE | 2018-01-26 13:43 | HHI.PR ---
Subjective Remarks Patient seen and examined today for follow-up on hepatitis, portal vein thrombosis. Patient states that he is doing well. However his bilirubin is worsening. Patient is getting more icteric. Patient blood pressure still mildly elevated. He remains afebrile Objective Vitals Vital Signs Date Time Temp Pulse Resp B/P (MAP) Pulse Ox O2 Delivery O2 Flow Rate FiO2 01/26/18 08:01 96.3 64 18 152/89 (110) 96 01/26/18 04:00 96.5 64 20 157/95 (115) 97 01/26/18 00:00 96.6 65 20 124/82 (96) 98 01/25/18 20:00 97.2 70 20 140/82 (101) 97 01/25/18 16:01 96.7 73 18 137/94 (108) 95 I/O 01/25/18 01/25/18 01/25/18 01/26/18 01/26/18 01/26/18 06:59 14:59 22:59 06:59 14:59 22:59 Intake Total 480 ml 1016.3 ml 1500 ml 181 ml Output Total 1600 ml Balance 480 ml -583.7 ml 1500 ml 181 ml Intake Oral 480 ml 960 ml 1500 ml IV Total 56.3 ml 181 ml Output Urine Total 1600 ml # Voids 3 3 # Bowel Movements 0 1 0 Result Diagram: 01/25/18 1335 01/24/18 0525 Objective Remarks GENERAL: Well-developed, well-nourished, in no acute distress. alert and orientated HEENT: Head is normocephalic without any lesions or masses noted. Facial features are symmetric. Eyes: Extraocular muscles are intact. Conjunctivae and sclera are anicteric NECK: Supple without any masses. Trachea midline no deviation. No JVD, CARDIAC: Regular rhythm, regular rate. S1/S2 are heard. No murmurs gallops or rubs. LUNGS: Clear to auscultation bilaterally. No wheeze, rhonchi or rales. No use of accessory muscles on inspiration or expiration. ABDOMEN: Soft, nontender. Nondistended. Bowel sounds heard in all 4 quadrants. No organomegaly or masses. Negative rebound, negative guarding EXTREMITIES: No edema, pulses are equal bilaterally. No cyanosis or clubbing NEUROLOGY: Mood and affect appear appropriate. Cranial nerves II through XII grossly intact. Moving all extremities, speech is clear Urinary Catheter: No Vascular Central Line Catheter: No A/P Assessment and Plan Portal vein thrombosis -CT scan does confirm that patient has significant portal vein thrombosis -Discontinue heparin IV since no procedures are planned by GI -Start patient on Xarelto 15 mg twice daily -Discussed with case management and we could arrange the patient to have 30 days worth of Xarelto upon discharge, patient will need to obtain a blue card and financial assistance with [employer], at that time patient should be able to receive further Xarelto for continued management care Obstructive jaundice, cirrhosis, transaminitis with history of alcohol abuse -Continue to monitor laboratory studies, bilirubin continues to trend upward -MRCP does not indicate any acute abnormality. Does indicate cirrhosis. Thickening of the gallbladder and some fluid around the gallbladder suggesting at least chronic gallbladder disease. Trace of ascites, complete thrombosis involving the portal venous system. Prominent involving the pancreas head suggestive of edema and/or swelling which could be related to portal vein thrombosis versus focal pancreatitis. -GI consulted for further recommendations -Tumor markers with AFP are elevated, CA-19-9 elevated -Hepatitis panel does indicate hepatitis C infection, genotype is pending, viral load is 266,000 -Patient will require outpatient follow-up with contract administration manager for continued management care Portal hypertension -Amlodipine 10 mg daily -Start propanolol 20 mg twice daily -Continue spironolactone, Lasix Tobacco abuse -Encouraged cessation -Nicotine patch was offered, however patient refused DVT prevention -Sequential compression devices, heparin IV Discharge Planning Discharge planning 48-72 hours depending on patient response to treatment and decrease in bilirubin Abel Degroot Jan 26, 2018 13:43
[2018-01-26 16:00] VITALS: BP 143/88; PULSE 69; RESP 17; TEMP 96.3; O2SAT 97
[2018-01-26 20:00] VITALS: BP 133/85; PULSE 63; RESP 20; TEMP 97.1; O2SAT 98
[2018-01-26] MEDS: PROPRANOLOL HCL 20 MG TAB PO SCH (20:56)
[2018-01-27] VITALS: BP 146/97; PULSE 57; RESP 20; TEMP 96.7; O2SAT 97
[2018-01-27] MEDS: KETOROLAC TROMETHAMINE 30 MG/ML (IVP) VIAL IV PUSH SCH ×2 (00:07→05:44)
[2018-01-27] MEDS: METOCLOPRAMIDE HCL 10 MG/2 ML VIAL IV PUSH PRN ×2 (00:08→05:44)
[2018-01-27 06:41] LABS: DIRECT BILIRUBIN ADULT 3.2 MG/DL (0.0-0.2)
[2018-01-27 06:43] LABS: INDIRECT BILIRUBIN 1.4 MG/DL (0.0-0.8); TOTAL BILIRUBIN ADULT 4.6 MG/DL (0.2-1.0); TOTAL PROTEIN 8.4 GM/DL (6.4-8.2)
[2018-01-27] MEDS: FUROSEMIDE 20 MG TAB PO SCH (07:57)
[2018-01-27] MEDS: amLODIPine BESYLATE 5 MG TAB PO SCH (07:57)
[2018-01-27] MEDS: SODIUM CHLORIDE 0.9% FLUSH 10 ML FLUSH IV FLUSH SCH (07:58)
[2018-01-27] MEDS: SPIRONOLACTONE 50 MG TAB PO SCH (07:58)
[2018-01-27] MEDS: DOCUSATE SODIUM 50 MG/SENNA 8.6 MG TAB PO SCH (07:58)
[2018-01-27] MEDS: PROPRANOLOL HCL 20 MG TAB PO SCH (07:58)
[2018-01-27] MEDS: RIVAROXABAN 15 MG TAB PO SCH (07:58)
[2018-01-27 08:00] VITALS: BP 128/79; PULSE 54; RESP 18; TEMP 97.8; O2SAT 97
--- NOTE | 2018-01-27 08:32 | HHI.DCPOC ---
Discharge Care Plan Diagnosis: (1) Hepatitis C antibody positive in blood (2) Elevated liver enzymes (3) Cirrhosis (4) Portal vein thrombosis Goals to Promote Your Health * To prevent worsening of your condition and complications * To maintain your health at the optimal level Directions to Meet Your Goals Take your medications as prescribed Follow your dietary instruction Follow activity as directed Keep your appointments as scheduled Take your immunizations and boosters as scheduled If your symptoms worsen call your PCP, if no PCP go to Urgent Care Center or Emergency Room Smoking is Dangerous to Your Health. Avoid second hand smoke Call the 24-hour hour crisis hotline for domestic abuse at Abel Degroot Jan 27, 2018 08:32
[2018-01-27] MEDS ORDERED: PROP20TA3 PO (08:39)
[2018-01-27] MEDS ORDERED: ALDA50TA2 PO (08:39)
[2018-01-27] MEDS ORDERED: AMLO5 PO (08:39)
[2018-01-27] MEDS ORDERED: FURO20TA PO (08:39)
[2018-01-27] MEDS ORDERED: XARE20TA PO (08:39)
[2018-01-27] MEDS ORDERED: XARE15TA PO (08:39)
--- NOTE | 2018-01-27 08:43 | HHI.DS ---
Discharge Summary Admission Date Jan 23, 2018 at 13:23 Discharge Date: Jan 27, 2018 Admitting Diagnosis Obstructive jaundice, portal hypertension (1) Portal vein thrombosis ICD Code: I81 - Portal vein thrombosis Status: Acute (2) Portal hypertension ICD Code: K76.6 - Portal hypertension Status: Acute (3) Cirrhosis ICD Code: K74.60 - Unspecified cirrhosis of liver Status: Acute (4) Obstructive jaundice ICD Code: K83.8 - Other specified diseases of biliary tract Status: Acute (5) Elevated liver enzymes ICD Code: R74.8 - Abnormal levels of other serum enzymes Status: Acute Procedures None Brief History - From Admission This is a 52-year-old male patient with a known medical history of cardiomyopathy, hypertension and history of alcohol abuse who presented to the ED with complaints of abdominal pain. Patient states that over the past 2 months he has had intermittent right upper quadrant pain, characterized as stabbing, worse with movement and bandlike across his abdomen. Patient states that the pain was dull in the beginning and progressively worsened over the past couple months. It should be noted that patient also lost a total of 45 pounds without trying over the past 2 months. He does admit to associated nausea with the pain, vomiting 2 this morning. Emesis was dark brown in color. He denies any recent black or bloody stools. He denies ever undergoing a colonoscopy or EGD in the past. Does admit to smoking half pack per day cigarettes for last 25 years. As well as smoking marijuana daily. Patient does have a history of alcohol, states he has been sober for over 5 years now. He denies any IV drug use. Patient does not take medicines on a daily basis. Does not follow with the PCP due to lack of insurance. CBC/BMP: 01/25/18 1335 01/24/18 0525 Significant Findings Laboratory Tests Test 01/24/18 09:10 01/25/18 06:10 01/25/18 13:35 01/25/18 20:05 Hepatitis C IgG Antibody REACTIVE (NONREACTIVE) Hepatitis C RNA (PCR) IUs/ml 180274 IU/mL (Not Detected) Hepatitis C RNA (PCR) log IUs/ml 5.42 (Not Detected) Total Bilirubin 4.1 MG/DL (0.2-1.0) Direct Bilirubin 3.0 MG/DL (0.0-0.2) Indirect Bilirubin 1.1 MG/DL (0.0-0.8) Aspartate Amino Transf (AST/SGOT) 265 U/L (15-37) Alanine Aminotransferase (ALT/SGPT) 188 U/L (12-78) Alkaline Phosphatase 231 U/L (45-117) Albumin 2.9 GM/DL (3.4-5.0) Tumor Marker Alpha Fetoprotein 168.6 NG/ML (0.5-8.0) CA 19-9 Antigen 211.2 U/ML (0.0-35.0) Red Blood Count 4.32 MIL/MM3 (4.50-5.90) Red Cell Distribution Width 17.5 % (11.6-17.2) Platelet Count 143 TH/MM3 (150-450) Prothrombin Time 13.3 SEC (9.8-11.6) Activated Partial Thromboplast Time 82.3 SEC (24.3-30.1) Test 01/26/18 03:30 01/26/18 06:17 01/26/18 09:50 01/27/18 05:34 Activated Partial Thromboplast Time 63.9 SEC (24.3-30.1) 59.6 SEC (24.3-30.1) Total Bilirubin 5.2 MG/DL (0.2-1.0) 4.6 MG/DL (0.2-1.0) Direct Bilirubin 3.7 MG/DL (0.0-0.2) 3.2 MG/DL (0.0-0.2) Indirect Bilirubin 1.5 MG/DL (0.0-0.8) 1.4 MG/DL (0.0-0.8) Aspartate Amino Transf (AST/SGOT) 276 U/L (15-37) 290 U/L (15-37) Alanine Aminotransferase (ALT/SGPT) 196 U/L (12-78) 200 U/L (12-78) Alkaline Phosphatase 235 U/L (45-117) 237 U/L (45-117) Albumin 2.9 GM/DL (3.4-5.0) 3.0 GM/DL (3.4-5.0) Total Protein 8.4 GM/DL (6.4-8.2) Imaging Last Impressions Cholangiopancreatography MRI 01/25/18 0000 Signed Impressions: CONCLUSION: 1. There is hepatomegaly with moderate diffuse heterogeneous signal throughout the liver characteristic of hepatocellular disease such as cirrhosis. 2. No dilated biliary ducts are demonstrated at this time. 3. There is thickening of the gallbladder wall with some fluid around the gall bladder suggestive of at least chronic gallbladder disease. No definite stones are demonstrated. 4. There is a trace amount of ascites adjacent to the liver. 5. There appears to be complete thrombosis involving the portal venous system. 6. There is diffuse prominence involving the head of the pancreas suggestive o f edema and/or swelling. This may be related to the portal venous thrombosis ve rsus focal pancreatitis. 7. Bilateral benign-appearing renal cysts. Liver Ultrasound 01/24/18 0000 Signed Impressions: CONCLUSION: 1. Cirrhotic liver. 2. Portal vein thrombosis with cavernous transformation. 3. The patient had a CT of the abdomen performed on 01/23/2018 which delineates these issues. 4. Nonspecific gallbladder wall thickening. This can be seen with cirrhosis. G allstones are not seen. 5. Intrahepatic biliary duct dilatation is not seen. The common bile duct is n ot visualized Abdomen/Pelvis CT 01/23/18 1052 Signed Impressions: CONCLUSION: 1. No right sided abdominal mass is identified, as questioned. 2. Hepatomegaly with the liver features diagnostic of cirrhosis. There are fin dings indicating portal hypertension including splenomegaly, small volume of as cites, and esophageal varices. 3. The main portal vein and left and right branches are completely thrombosed. This is likely chronic given the periportal collateralization/cavernous transf ormation. 4. Diffuse gallbladder wall edema and right colon edema is nonspecific but mos t likely related to the portal hypertension. 5. Stable complex partially calcified lesion in the left mid kidney measuring 12 mm. This stability favors a benign process. PE at Discharge GENERAL: Well-developed, well-nourished, in no acute distress. alert and orientated HEENT: Head is normocephalic without any lesions or masses noted. Facial features are symmetric. Eyes: Extraocular muscles are intact. Conjunctivae and sclera are anicteric NECK: Supple without any masses. Trachea midline no deviation. No JVD, CARDIAC: Regular rhythm, regular rate. S1/S2 are heard. No murmurs gallops or rubs. LUNGS: Clear to auscultation bilaterally. No wheeze, rhonchi or rales. No use of accessory muscles on inspiration or expiration. ABDOMEN: Soft, nontender. Nondistended. Bowel sounds heard in all 4 quadrants. No organomegaly or masses. Negative rebound, negative guarding EXTREMITIES: No edema, pulses are equal bilaterally. No cyanosis or clubbing NEUROLOGY: Mood and affect appear appropriate. Cranial nerves II through XII grossly intact. Moving all extremities, speech is clear Hospital Course 52-year-old male with known history of cardiomyopathy, hypertension, history of alcohol abuse who presented to the emergency department initially with abdominal pain states that the pain has been progressing and worse in the intermittent right upper quadrant for 2 months. Patient did have episode of nausea and vomiting 2 and noticed that the emesis was dark brown in color. He denied any bloody stools at that time. Patient had workup done and CT scan did show cirrhosis, portal hypertension, esophageal varices, hepatic vein thrombosis. Patient was worked up for any obstructive jaundice with abdominal ultrasound, MRCP which did not indicate any obstructive etiology. Further laboratory studies were performed and did indicate elevated liver enzymes, hyperbilirubinemia, hepatitis C. Patient had gastroenterology evaluation and recommended outpatient workup once patient was stabilized. Patient was started on heparin IV for the portal vein thrombosis and changed to Xarelto. Case management was consulted and was able to provide the patient with 1 month free supply of Xarelto and arrange the patient to have blue card and patient care assistance in order to provide the patient with further prescriptions in the future. Patient had his liver enzymes and bilirubin trended which did start to trend downward. Patient's pain was controlled during the hospitalization. Patient was instructed on his diagnosis and follow-up with GI upon discharge. Patient did understand. Patient was discharged accordingly. Pt Condition on Discharge: Stable Discharge Disposition: Discharge Home Discharge Time: > 30 minutes Discharge Instructions DIET: Follow Instructions for: As Tolerated, No Restrictions Activities you can perform: Regular-No Restrictions Follow up Referrals: Gastroenterology - 2 Weeks PCP Follow-up - 1 Week New Medications: Rivaroxaban (Xarelto) 20 Mg Tab 20 MG PO DAILY for Blood Clot Prevention for 30 Days, #30 TAB 0 Refills Amlodipine (Norvasc) 5 Mg Tab 10 MG PO DAILY for Blood Pressure Management for 30 Days, #60 TAB Furosemide (Furosemide) 20 Mg Tab 20 MG PO DAILY for Blood Pressure Management for 30 Days, #30 TAB Propranolol (Propranolol) 20 Mg Tab 20 MG PO Q12HR for Blood Pressure Management for 30 Days, TAB Rivaroxaban (Xarelto) 15 Mg Tab 15 MG PO BID for Blood Clot Prevention for 20 Days, #40 TAB Spironolactone (Aldactone) 50 Mg Tab 50 MG PO DAILY for Blood Pressure Management for 30 Days, #30 TAB Abel Degroot Jan 27, 2018 08:43
== END 2018-01-27 10:39 | disposition home or self-care (01) | DRG 442 ==
LOC: PHED 10:09 → PHEDA 13:23 → PH3B 14:32
PROVIDERS: ADMIT Hospitalist; ATTEND Hospitalist
DX: I81 Portal vein thrombosis (principal); I42.9 Cardiomyopathy, unspecified; I85.10 Secondary esophageal varices without bleeding; R16.2 Hepatomegaly with splenomegaly, not elsewhere classified; D69.6 Thrombocytopenia, unspecified; K76.6 Portal hypertension; K74.69 Other cirrhosis of liver; I10 Essential (primary) hypertension; B19.20 Unspecified viral hepatitis C without hepatic coma; F10.21 Alcohol dependence, in remission; F17.210 Nicotine dependence, cigarettes, uncomplicated; F12.90 Cannabis use, unspecified, uncomplicated; F41.9 Anxiety disorder, unspecified
CPT/HCPCS: 74177; 74183; 76377; 76705; 80053; 80074; 80076; 81001; 82105; 82140; 82248; 82272; 83690; 85025; 85027; 85610; 85730; 86301; 86803; 87522; 87902; 96360; A9579; J1644; J1885; J2765; J7030; Q9967

== ENCOUNTER 2018-03-30 15:15 | Inpatient (IN) ==
[2018-03-30 17:02] LABS: Activated Partial Thrombo Time 28.3 sec (24.3-30.1); INR 1.3 Ratio; Prothrombin Time 13.4 sec (9.8-11.6)
--- NOTE | 2018-03-30 17:03 | ED ---
HPI General Chief Complaint: Abdominal Pain Stated Complaint: abd pain Time Seen by Provider: 03/30/18 15:54 Source: patient and family Mode of arrival: ambulatory Limitations: no limitations History of Present Illness HPI narrative: 52-year-old male notes that he has been having diffuse abdominal pain over the past couple days. He states he has also been having black stools. He states he has a history of cirrhosis in his abdomen is slowly getting bigger as well. complaint: abdominal pain Onset (ago): day(s) Pain Consistency: intermittent Location: diffuse Severity: moderate Quality: cramping Radiation: none Migration to: no migration Relieving factors: nothing Exacerbating factors: movement Associated symptoms: melena Related Data Home Medications Medication Instructions Recorded Confirmed amlodipine 10 mg PO DAILY 03/30/18 03/30/18 rivaroxaban [Xarelto] 20 mg PO DAILY 03/30/18 03/30/18 Previous Rx's Medication Instructions Recorded furosemide [Lasix] 20 mg PO DAILY #30 tab 03/02/18 propranolol 20 mg PO BID #60 tab 03/02/18 spironolactone 50 mg PO DAILY #30 tab 03/02/18 Allergies Allergy/AdvReac Type Severity Reaction Status Date / Time No Known Allergies AdvReac Unknown Uncoded 01/23/18 10:43 Review of Systems ROS: all other systems reviewed are negative PMFSH History History Provided By: Patient and Family Member Medical History Medical History Hepatitis C antibody positive in blood (Acute) 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 jaundiced HEAD: Atraumatic. Normocephalic. EYES: Pupils equal and round. scleral icterus. No injection or drainage. ENT: No nasal bleeding or discharge. Mucous membranes pink and moist. NECK: Trachea midline. CARDIOVASCULAR: Regular rate and rhythm. RESPIRATORY: No accessory muscle use. Clear to auscultation. Breath sounds equal bilaterally. GASTROINTESTINAL: Abdomen soft, distended. ascitic fluid wave noted MUSCULOSKELETAL: No obvious deformities. No clubbing. No cyanosis. NEUROLOGICAL: Awake and alert. Motor grossly within normal limits. Normal speech. Procedures Hemaprompt Stool Procedural Steps Taken: specimen placed in appropriate test area, developer placed on specimen and control areas and controls appropriately positive and negative Hemaprompt Stool Result: positive Additional Comments: black stool noted Course Hospital Course: patient updated and agrees to admit Consultations Consultation #1: dr beckham agrees to admit Initial Documented Vital Signs Temperature 97.8 F 03/30/18 15:34 Pulse Rate 96 H 03/30/18 15:34 Respiratory Rate 20 03/30/18 15:34 Blood Pressure 152/103 H 03/30/18 15:34 Pulse Oximetry 99 03/30/18 15:34 Last Documented Vital Signs Temperature 97.8 F 03/30/18 15:34 Pulse Rate 96 H 03/30/18 15:34 Respiratory Rate 20 03/30/18 15:34 Blood Pressure 152/103 H 03/30/18 15:34 Pulse Oximetry 99 03/30/18 16:00 Medical Decision Making MDM Narrative Medical decision making narrative: Will check blood work and place on octreotide and Protonix and reevaluate Medical Screen Exam Complete: Yes Emergency Medical Condition: Yes Differential Diagnosis Differential Diagnosis: Gastritis, varices, ascites, spontaneous bacterial peritonitis Lab Data Lab results reviewed: Yes I reviewed the patient's lab results. Result diagrams: 03/30/18 16:35 03/30/18 16:35 Lab Results 03/30/18 03/30/18 03/30/18 Range/Units 16:35 16:35 16:35 WBC 9.8 (4.0-11.0) th/mm3 RBC 4.01 L (4.50-5.90) mil/mm3 Hgb 13.6 (13.0-17.0) gm/dL Hct 38.7 L (39.0-51.0) % MCV 96.6 (80.0-100.0) fL MCH 34.1 H (27.0-34.0) pg MCHC 35.3 (32.0-36.0) % RDW 15.2 (11.6-17.2) % Plt Count 367 D (150-450) th/mm3 MPV 8.5 (7.0-11.0) fL Neut % (Auto) 72.5 H (16.0-70.0) % Lymph % (Auto) 18.7 (9.0-44.0) % [place] % (Auto) 7.3 (0.0-8.0) % Eos % (Auto) 0.7 (0.0-4.0) % Baso % (Auto) 0.8 (0.0-2.0) % Neut # (Auto) 7.1 (1.8-7.7) th/mm3 Lymph # (Auto) 1.8 (1.0-4.8) th/mm3 [place] # (Auto) 0.7 (0.0-0.9) th/mm3 Eos # (Auto) 0.1 (0.0-0.4) th/mm3 Baso # (Auto) 0.1 (0.0-0.2) th/mm3 WBC Differential . Differential Comment Auto diff final PT 13.4 H (9.8-11.6) sec INR 1.3 Ratio APTT 28.3 (24.3-30.1) sec Sodium 137 (136-145) meq/L Potassium 4.3 (3.5-5.1) meq/L Chloride 104 (98-107) meq/L Carbon Dioxide 23.5 (21.0-32.0) meq/L Anion Gap 10 (5-15) meq/L BUN 20 H (7-18) mg/dL Creatinine 0.58 L (0.60-1.30) mg/dL Estimated GFR Greater than 89 (>89) mL/min Random Glucose 111 H (74-106) mg/dL Calcium 8.8 (8.5-10.1) mg/dL Total Bilirubin 3.4 H (0.2-1.0) mg/dL AST 269 H (15-37) U/L ALT 98 H (12-78) U/L Alkaline Phosphatase 467 H (45-117) U/L Total Protein 9.1 H (6.4-8.2) g/dL Albumin 2.2 L (3.4-5.0) g/dL Lipase 311 (73-393) U/L Discharge Plan Discharge Disposition Patient Disposition: 30 Still Patient Discharge Condition Condition: Stable Discharge Details Diagnosis: Acute GI bleeding, Ascites, Abdominal pain Physicians Team ED Provider: Amanda Torres Primary Care Provider: Nanette Thurston, Attending Provider: Viraj Beckham Status ED Status: Admitted Observation Patient
[2018-03-30 17:16] LABS: Baso # (Auto) 0.1 th/mm3 (0.0-0.2); Baso % (Auto) 0.8 % (0.0-2.0); Eos # (Auto) 0.1 th/mm3 (0.0-0.4); Eos % (Auto) 0.7 % (0.0-4.0); Hematocrit 38.7 % (39.0-51.0); Hemoglobin 13.6 gm/dL (13.0-17.0); Lymph # (Auto) 1.8 th/mm3 (1.0-4.8); Lymph % (Auto) 18.7 % (9.0-44.0); Mean Corpuscular HGB Conc 35.3 % (32.0-36.0); Mean Corpuscular Hemoglobin 34.1 pg (27.0-34.0); Mean Corpuscular Volume 96.6 fL (80.0-100.0); Mean Platelet Volume 8.5 fL (7.0-11.0); Mono # (Auto) 0.7 th/mm3 (0.0-0.9); Mono % (Auto) 7.3 % (0.0-8.0); Neut # (Auto) 7.1 th/mm3 (1.8-7.7); Neut % (Auto) 72.5 % (16.0-70.0); Platelet Count 367 th/mm3 (150-450); Red Blood Count 4.01 mil/mm3 (4.50-5.90); Red Cell Distribution Width 15.2 % (11.6-17.2); White Blood Count 9.8 th/mm3 (4.0-11.0)
[2018-03-30 17:25] LABS: Albumin 2.2 g/dL (3.4-5.0); Anion Gap 10 meq/L (5-15); Aspartate Aminotransferase 269 U/L (15-37); Blood Urea Nitrogen 20 mg/dL (7-18); Calcium 8.8 mg/dL (8.5-10.1); Carbon Dioxide 23.5 meq/L (21.0-32.0); Chloride 104 meq/L (98-107); Glomerular Filtration Rate Greater Than 89 mL/min (>89); Glucose,Random 111 mg/dL (74-106); Lipase 311 U/L (73-393); Sodium 137 meq/L (136-145)
[2018-03-30 17:26] LABS: Potassium 4.3 meq/L (3.5-5.1)
[2018-03-30 17:28] LABS: Alanine Aminotransferase 98 U/L (12-78); Alkaline Phosphatase 467 U/L (45-117); Total Protein 9.1 g/dL (6.4-8.2)
[2018-03-30] MEDS: Octreotide Inj 500 MCG in Sodium Chlor 0.9% Inj 500 ML IV.CONT SCH (18:36)
[2018-03-30] MEDS: Pantoprazole Inj 80 MG in Sodium Chlor 0.9% Inj 100 ML IV.CONT SCH (18:37)
--- NOTE | 2018-03-30 18:55 | P.HP ---
History of Present Illness Service: [facility] Primary Care Physician: [facility] Chief Complaint: Black dark stools x 3 History of Present Illness: Patient is a 52-year-old male with past medical history of HTN, ETOH sober for 5 years, cirrhosis of the liver, obstructive jaundice who came into the hospital for complaints of dark, black stools 3 today. Complains of abdominal pain, diffuse, 8/10, does not know what aggravates or relieves the symptom. States that he just got out of the hospital for the same complaints of abdominal pain. Patient states that he was just seeing a new PCP at [facility] and was told that he needs a liver transplant. Denies any nausea, vomiting, fevers, chills. Denies hematemesis, hematuria. Reports poor appetite , shortness of breath and dyspnea occasionally especially with activities. Reports abdomen increasing in size. Denies chest pain, palpitations. Vital signs reviewed 96, 20, 152/103, 99% on room air. Labs reviewed H&H does not show significant anemia, 13.6/38.7, PT 13.4, INR 1.3 LFTs T bili 3.4, AST 269, ALT 98, alk phos 467 -compared to previous visit this is significantly improved Review of previous CT, 03/02/18 CT of the abdomen and pelvis 1. Cirrhotic appearing liver without significant change. The spleen is at the upper limits of normal. 2. Small to moderate amount of ascitic fluid. There is mildly increased from the prior study. 3. Small noncalcified pulmonary nodules. No further evaluation is required according to the Fleischner Society guidelines. Review of Systems All other systems reviewed negative except as stated in HPI PMFSH - History History Provided By: Patient, Family Member - Medical History Medical History: Medical History (Last Updated 03/30/18 @ 17:38 by Meredith Pandya) Hepatitis C antibody positive in blood (Acute) Hx of custodial use of blood thinners (Acute) Portal hypertension (Acute) Obstructive jaundice (Acute) Elevated liver enzymes (Acute) Portal vein thrombosis (Acute) Cirrhosis (Acute) - Surgical History Surgical History: Surgical History (Last Updated 03/30/18 @ 17:38 by Meredith Pandya) History of hernia surgery (Acute) - Family History Family History: Family History (Last Updated 08/22/18 @ 18:40 by FABRICE Ruff) Other Unknown family medical history - Tobacco History Second Hand Smoke Exposure: Yes Tobacco Use In Past 30 Days: Yes Smoking Status: Current some day smoker Tobacco Type: Cigarettes - Alcohol History How Often Do You Have a Drink Containing Alcohol: Never - Substance Use History Substance History: Past History - Travel History History of Recent Travel: No Recent Travel in the [place] Within the Last 8 Weeks: No Recent Travel Out of the Country Within the Last 8 Weeks: No - Immunization History Tetanus Immunization: Never Vaccinated Hx Influenza Vaccine This Season: No Medications and Allergies Active Medications: Active Medications Amlodipine Besylate (Norvasc) 10 mg PO DAILY [place] Furosemide (Lasix) 20 mg PO DAILY [place] Pantoprazole Sodium 80 mg/ (Sodium Chloride) 100 mls @ 10 mls/hr IV.CONT CONT [place] Octreotide Acetate 500 mcg/ (Sodium Chloride) 500.5 mls @ 50.05 mls/hr IV.CONT .Q10H [place] Propranolol HCl (Inderal) 20 mg PO BID [place] Rivaroxaban (Xarelto) 20 mg PO DAILY [place] Sodium Chloride (Ns Flush) 2 ml IV.FLUSH PRN PRN PRN Reason: FLUSH AFTER USING IV ACCESS Spironolactone (Aldactone) 50 mg PO DAILY [place] Allergies Allergy/AdvReac Type Severity Reaction Status Date / Time No Known Allergies AdvReac Unknown Uncoded 01/23/18 10:43 Home Medications Medication Instructions Recorded Confirmed Type amlodipine 10 mg PO DAILY 03/30/18 03/30/18 History rivaroxaban [Xarelto] 20 mg PO DAILY 03/30/18 03/30/18 History Exam Vital signs: Vital Signs 03/30/18 15:34 03/30/18 16:00 Temperature 97.8 F Pulse Rate 96 H Respiratory Rate 20 Blood Pressure 152/103 H Pulse Oximetry 99 99 Intake & Output 03/29/18 03/30/18 03/30/18 18:59 06:59 18:59 Weight 81.647 kg Narrative: GENERAL: This is a well-nourished, well-developed patient, in no apparent distress. SKIN: Warm and dry. Jaundiced HEENT: Normocephalic. Pupils equal round and reactive. Icteric sclera. Nose without bleeding. Airway patent. NECK: Trachea midline. Supple. CARDIOVASCULAR: Regular rate and rhythm without murmurs, gallops, or rubs. RESPIRATORY: Clear to auscultation. Breath sounds equal bilaterally. No wheezes , rales, or rhonchi. GASTROINTESTINAL: Abdomen soft, tender to palpate, mildly distended. Bowel Sounds normoactive x4. MUSCULOSKELETAL: Extremities without clubbing, cyanosis, or edema. NEUROLOGICAL: Awake and alert. Oriented to time, place, person. No focal neuro deficit. Moves all extremities. Normal speech. Results - Labs CBC & Chem 7: 03/31/18 06:20 03/31/18 06:20 Labs: Laboratory Results - last 24 hr 03/30/18 03/30/18 03/30/18 16:35 16:35 16:35 WBC 9.8 RBC 4.01 L Hgb 13.6 Hct 38.7 L MCV 96.6 MCH 34.1 H MCHC 35.3 RDW 15.2 Plt Count 367 D MPV 8.5 Neut % (Auto) 72.5 H Lymph % (Auto) 18.7 [place] % (Auto) 7.3 Eos % (Auto) 0.7 Baso % (Auto) 0.8 Neut # (Auto) 7.1 Lymph # (Auto) 1.8 [place] # (Auto) 0.7 Eos # (Auto) 0.1 Baso # (Auto) 0.1 WBC Differential . Differential Comment Auto diff final PT 13.4 H INR 1.3 APTT 28.3 Sodium 137 Potassium 4.3 Chloride 104 Carbon Dioxide 23.5 Anion Gap 10 BUN 20 H Creatinine 0.58 L Estimated GFR Greater than 89 Random Glucose 111 H Calcium 8.8 Magnesium Total Bilirubin 3.4 H AST 269 H ALT 98 H Alkaline Phosphatase 467 H Total Protein 9.1 H Albumin 2.2 L Lipase 311 03/30/18 16:35 WBC RBC Hgb Hct MCV MCH MCHC RDW Plt Count MPV Neut % (Auto) Lymph % (Auto) [place] % (Auto) Eos % (Auto) Baso % (Auto) Neut # (Auto) Lymph # (Auto) [place] # (Auto) Eos # (Auto) Baso # (Auto) WBC Differential Differential Comment PT INR APTT Sodium Potassium Chloride Carbon Dioxide Anion Gap BUN Creatinine Estimated GFR Random Glucose Calcium Magnesium 2.3 Total Bilirubin AST ALT Alkaline Phosphatase Total Protein Albumin Lipase Caprini VTE Risk Assessment Caprini VTE Risk Assessment: Moderate/High Risk (score >= 2) Caprini Risk Assessment Model: Point Value = 1 Point Value = 2 Point Value = 3 Point Value = 5 Age 41-60 Minor surgery BMI > 25 kg/m2 Swollen legs Varicose veins or History of unexplained or recurrent spontaneous Oral contraceptives or hormone replacement Sepsis (< 1 month) Serious lung disease, including pneumonia (< 1 month) Abnormal pulmonary function Acute myocardial infarction Congestive heart failure (< 1 month) History of inflammatory bowel disease Medical patient at bed rest Age 61-74 Arthroscopic surgery Major open surgery (> 45 min) Laparoscopic surgery (> 45 min) Malignancy Confined to bed (> 72 hours) Immobilizing plaster cast Central venous access Age >= 75 History of VTE Family history of VTE Factor V Leiden Prothrombin [id number] Lupus anticoagulant Anticardiolipin antibodies Elevated serum homocysteine Heparin-induced thrombocytopenia Other congenital or acquired thrombophilia Stroke (< 1 month) Elective arthroplasty Hip, pelvis, or leg fracture Acute spinal cord injury (< 1 month) Prophylaxis Regimen: Total Risk Factor Score Risk Level Prophylaxis Regimen 0-1 Low Early ambulation 2 Moderate Order ONE of the following: *Sequential Compression Device (SCD) *Heparin 5000 units SQ BID 3-4 Higher Order ONE of the following medications: *Heparin 5000 units SQ TID *Enoxaparin/Lovenox 40 mg SQ daily (WT < 150 kg, CrCl > 30 mL/min) *Enoxaparin/Lovenox 30 mg SQ daily (WT < 150 kg, CrCl > 10-29 mL/min) *Enoxaparin/Lovenox 30 mg SQ BID (WT < 150 kg, CrCl > 30 mL/min) AND/OR *Sequential Compression Device (SCD) 5 or more Highest Order ONE of the following medications: *Heparin 5000 units SQ TID (Preferred with Epidurals) *Enoxaparin/Lovenox 40 mg SQ daily (WT < 150 kg, CrCl > 30 mL/min) *Enoxaparin/Lovenox 30 mg SQ daily (WT < 150 kg, CrCl > 10-29 mL/min) *Enoxaparin/Lovenox 30 mg SQ BID (WT < 150 kg, CrCl > 30 mL/min) AND *Sequential Compression Device (SCD) Assessment and Plan - Plan Patient is a 52-year-old male with past medical history of HTN, ETOH sober for 5 years, cirrhosis of the liver, obstructive jaundice who came into the hospital for complaints of dark, black stools 3 today. Complains of abdominal pain, diffuse, 03/18, does not know what aggravates or relieves the symptom. States that he just got out of the hospital for the same complaints of abdominal pain. Patient states that he was just seeing a new PCP at [facility] and was told that he needs a liver transplant. Denies any nausea, vomiting, fevers, chills. Denies hematemesis, hematuria. Reports poor appetite , shortness of breath and dyspnea occasionally especially with activities. Reports abdomen increasing in size. Denies chest pain, palpitations. Acute GI bleed -Reports melena 3, H&H does not show significant anemia, 13.6/38.7, for now -Stool for occult blood -Sandostatin drip, Protonix drip started on ED -Trend H&H -Consult gastroenterology if warranted. As per patient, he follows with [facility] as he has an appointment on April 13 to see them. Liver cirrhosis, transaminitis Ascites Hepatitis C -Complains of abdominal pain -Vital signs reviewed 96, 20, 152/103, 99% on room air. -Labs reviewed PT 13.4, INR 1.3 -LFTs T bili 3.4, AST 269, ALT 98, alk phos 467 -compared to previous visit this is significantly improved -Review of previous CT, 03/02/18 CT of the abdomen and pelvis 1. Cirrhotic appearing liver without significant change. The spleen is at the upper limits of normal. 2. Small to moderate amount of ascitic fluid. There is mildly increased from the prior study. 3. Small noncalcified pulmonary nodules. No further evaluation is required according to the Fleischner Society guidelines. -Previous results reviewed01/25/18 AFP 168.6, CA 19-9 antigen 211.2 -Previous ultrasound showed 1. Cirrhotic liver. 2. Portal vein thrombosis with cavernous transformation. 3. The patient had a CT of the abdomen performed on 01/23/2018 which delineates these issues. 4. Nonspecific gallbladder wall thickening. This can be seen with cirrhosis. Gallstones are not seen. 5. Intrahepatic biliary duct dilatation is not seen. The common bile duct is not visualized -01/24/18 HCV RNA [id number], genotype 1A - GI appointment for outpatient treatment -Repeat US ordered -Continue Lasix, spironolactone -Continue Xarelto HTN -Continue amlodipine -Monitor BP trend DVT prop Xarelto Code Status: Full code Discussed Condition With: Patient, significant other, Dr. Beckham Discharge Planning: Plan to DC home when clinically improved.
[2018-03-30] MEDS ORDERED: Dextrose 50% in Water 50 ML Vial IV.PUSH PRN (20:06)
[2018-03-30] MEDS: Dextrose 5%/NaCl 0.45% Inj 1,000 ML IV.CONT SCH (20:45)
[2018-03-30 22:06] LABS: Albumin 2.1 g/dL (3.4-5.0); Anion Gap 9 meq/L (5-15); Aspartate Aminotransferase 243 U/L (15-37); Blood Urea Nitrogen 22 mg/dL (7-18); Calcium 8.8 mg/dL (8.5-10.1); Carbon Dioxide 22.7 meq/L (21.0-32.0); Chloride 104 meq/L (98-107); Glomerular Filtration Rate Greater Than 89 mL/min (>89); Glucose,Random 166 mg/dL (74-106); Potassium 4.3 meq/L (3.5-5.1); Sodium 136 meq/L (136-145)
[2018-03-30 22:08] LABS: Alanine Aminotransferase 90 U/L (12-78)
[2018-03-30 22:09] LABS: Alkaline Phosphatase 446 U/L (45-117); Total Protein 8.5 g/dL (6.4-8.2)
[2018-03-30] MEDS ORDERED: Bisacodyl 10 MG Supp RECTAL PRN (22:09)
[2018-03-30] MEDS ORDERED: Acetaminophen 325 MG Tablet PO PRN (22:09)
--- NOTE | 2018-03-30 23:01 | US ---
EXAM DATE: 03/30/2018 10:51 PM EDT AGE/SEX: 52 years / Male INDICATIONS: Abdominal pain. CLINICAL DATA: This is the patient's subsequent encounter. Patient reports that signs and symptoms h ave been present for 2 months and indicates a pain score of 8/10. MEDICAL/SURGICAL HISTORY: Cirrhosis. Hypertension. ETOH abuse. Portal vein thrombosis. Umbil ical hernia repair. Tonsillectomy. COMPAR[place]: [facility] [place]AST, 03/02/2018. [facility], US ABDOMEN - LIVER, 01/24/2018. . MEASUREMENTS: Liver:__ 23.5 cm. Common Bile Duct:__ 4mm. Right Kidney:__ 11.4 x 7.6 x 5.0 cm. FINDINGS: There is a marked amount of ascites. Liver: Heterogeneous echotexture throughout the liver without focal mass. Portal Vein: Abnormal. Absent portal venous flow and there is scattered small vessels about the lolly suggesting cavernous transformation. Echogenic thrombus is seen in the main portal vein. Common Duct: No intraluminal mass or stone visualized. Gallbladder: No echogenic or shadowing stones. There is thickening of the gallbladder wall measuring up to 9 mm, but gallbladder wall thickness assessment can be inaccurate the presence of ascites. Pancreas: There is a 4.3 x 2.3 cm oval hypoechoic nonshadowing lesion near or arising from the head o f the pancreas. Right Kidney: Normal renal cortical thickness. No evidence of hydronephrosis. 2.3 cm cyst lower pole . Other: None. CONCLUSION: 1. Hepatomegaly 2. Portal venous thrombosis with cavernous transformation. 3. 4 cm hypoechoic smooth margin mass in or near the head of the pancreas. 4. Marked amount of ascites. Electronically signed by: Joshua Sweeney MD 03/30/2018 10:59 PM EDT
[2018-03-31] MEDS: Morphine Inj 4 MG/ML Vial IV.PUSH PRN ×4 (00:27→20:51)
[2018-03-31 01:06] LABS: Bilirubin,Urine Small (Negative); Clarity,Urine Hazy (Clear); Color,Urine Amber (Yellw/Straw); Glucose,Urine (UA) Negative (Negative); Hyaline Casts,Urine 15 /lpf (0-3); Leukocyte Esterase,Urine Negative (Negative); Mucus,Urine Few /lpf (Occasional); Nitrite,Urine Negative (Negative); Specific Gravity,Urine 1.028 (1.002-1.035); Urobilinogen,Urine 4 or Greater mg/dL (Less than 2)
[2018-03-31 01:08] LABS: Ictotest,Urine Positive (Negative)
[2018-03-31] MEDS: Pantoprazole Inj 80 MG in Sodium Chlor 0.9% Inj 100 ML IV.CONT SCH ×2 (04:10→22:42)
[2018-03-31] MEDS: Octreotide Inj 500 MCG in Sodium Chlor 0.9% Inj 500 ML IV.CONT SCH ×2 (05:25→16:34)
[2018-03-31 06:35] LABS: Baso % (Auto) 0.4 % (0.0-2.0); Eos # (Auto) 0.1 th/mm3 (0.0-0.4); Eos % (Auto) 1.2 % (0.0-4.0); Hemoglobin 12.1 gm/dL (13.0-17.0); Lymph # (Auto) 1.6 th/mm3 (1.0-4.8); Lymph % (Auto) 20.1 % (9.0-44.0); Mean Corpuscular HGB Conc 33.7 % (32.0-36.0); Mean Corpuscular Hemoglobin 33.3 pg (27.0-34.0); Mean Corpuscular Volume 98.8 fL (80.0-100.0); Mean Platelet Volume 8.1 fL (7.0-11.0); Mono # (Auto) 0.6 th/mm3 (0.0-0.9); Mono % (Auto) 7.8 % (0.0-8.0); Neut # (Auto) 5.6 th/mm3 (1.8-7.7); Neut % (Auto) 70.5 % (16.0-70.0); Platelet Count 275 th/mm3 (150-450); Red Blood Count 3.64 mil/mm3 (4.50-5.90); Red Cell Distribution Width 15.3 % (11.6-17.2); White Blood Count 7.9 th/mm3 (4.0-11.0)
[2018-03-31 07:07] LABS: Anion Gap 8 meq/L (5-15); Blood Urea Nitrogen 21 mg/dL (7-18); Calcium 8.6 mg/dL (8.5-10.1); Carbon Dioxide 24.6 meq/L (21.0-32.0); Chloride 105 meq/L (98-107); Glomerular Filtration Rate Greater Than 89 mL/min (>89); Glucose,Random 107 mg/dL (74-106); Potassium 4.4 meq/L (3.5-5.1); Sodium 138 meq/L (136-145)
[2018-03-31] MEDS ORDERED: Rivaroxaban 20 MG Tablet PO SCH (09:00)
[2018-03-31] MEDS: Spironolactone 50 MG Tablet PO SCH (10:57)
[2018-03-31] MEDS: amLODIPine 5 MG Tablet PO SCH (10:57)
[2018-03-31] MEDS: Furosemide 20 MG Tablet PO SCH (10:57)
[2018-03-31] MEDS: Dextrose 5%/NaCl 0.45% Inj 1,000 ML IV.CONT SCH (10:59)
[2018-03-31] MEDS ORDERED: Lidocaine PF 1% Inj 5 ML Syringe INFILTRATN ONE (12:00)
--- NOTE | 2018-03-31 13:59 | P.PN ---
Subjective Interval history: Follow-up for cirrhosis, ascites, abdominal pain/distention, GI bleed. The patient reports continued abdominal distention with diffuse abdominal pain. He denies any nausea or vomiting. He had 3 dark black stools prior to arrival, no further bowel movement since admission. Denies fevers or chills. He states he has never had a paracentesis, although he feels like he needs to have fluid drained from his abdomen. He has no other medical complaints at this time. Physical Exam Vital signs: Vital Signs 03/30/18 15:34 03/30/18 16:00 03/30/18 19:30 Temperature 97.8 F 97.9 F Pulse Rate 96 H 87 Respiratory Rate 20 16 Blood Pressure 152/103 H 137/85 Pulse Oximetry 99 99 98 03/30/18 22:25 03/31/18 00:01 03/31/18 02:00 Temperature Pulse Rate 70 62 66 Respiratory Rate 16 18 18 Blood Pressure 146/96 H 137/88 120/75 Pulse Oximetry 99 98 96 03/31/18 04:00 03/31/18 07:44 03/31/18 13:16 Temperature 97.8 F Pulse Rate 64 60 61 Respiratory Rate 18 17 16 Blood Pressure 112/70 125/85 115/80 Pulse Oximetry 97 98 96 Intake & Output 03/30/18 03/31/18 03/31/18 18:59 06:59 18:59 Intake Total 600.5 / 600.5 1000 / 1000 Output Total 200 / 200 Balance 400.5 / 400.5 1000 / 1000 Weight 81.647 kg Intake: IV 600.5 / 600.5 1000 / 1000 D5W/1/2 NS Inj 1,000 ML @ 70 1000 / 1000 mls/hr IV.CONT .[id number] [place] Rx# :[id number] SandoSTATIN Inj 500 MCG In NS 500.5 / 500.5 Inj 500 ML @ 50 MCG/HR 50.05 mls/hr IV.CONT .Q10H [place] Rx#: [id number] Protonix Inj 80 MG In NS Inj 100 / 100 100 ML @ 10 mls/hr IV.CONT CONT [place] Rx#:[id number] Output: Urine 200 / 200 Narrative: GENERAL: Well-nourished, well-developed middle-age male patient in [facility]. SKIN: Warm and dry. No rash. HEENT: Normocephalic. Atraumatic. Pupils equal and round. + Scleral icterus. Mucous membranes pink and moist. CARDIOVASCULAR: Regular rate and rhythm. No murmur appreciated. RESPIRATORY: No accessory muscle use. Clear to auscultation. Breath sounds equal bilaterally. GASTROINTESTINAL: Abdomen soft, mildly distended with + fluid wave consistent with ascites; diffuse mild tenderness to palpation. Normoactive bowel sounds x4. MUSCULOSKELETAL: No obvious deformities. Extremities without clubbing, cyanosis , or edema. NEUROLOGICAL: Awake and alert. No obvious cranial nerve deficits. Motor grossly within normal limits. Moving all extremities spontaneously. Normal speech. PSYCHIATRIC: Appropriate mood and affect; insight and judgment normal. Results - Labs CBC & Chem 7: 03/31/18 06:20 03/31/18 06:20 Laboratory Results - last 24 hr 03/30/18 03/30/18 03/30/18 16:02 16:35 16:35 WBC 9.8 RBC 4.01 L Hgb 13.6 Hct 38.7 L MCV 96.6 MCH 34.1 H MCHC 35.3 RDW 15.2 Plt Count 367 D MPV 8.5 Neut % (Auto) 72.5 H Lymph % (Auto) 18.7 [place] % (Auto) 7.3 Eos % (Auto) 0.7 Baso % (Auto) 0.8 Neut # (Auto) 7.1 Lymph # (Auto) 1.8 [place] # (Auto) 0.7 Eos # (Auto) 0.1 Baso # (Auto) 0.1 WBC Differential . Differential Comment Auto diff final PT 13.4 H INR 1.3 APTT 28.3 Sodium Potassium Chloride Carbon Dioxide Anion Gap BUN Creatinine Estimated GFR POC Glucose Random Glucose Calcium Magnesium Total Bilirubin AST ALT Alkaline Phosphatase Total Protein Albumin Lipase Urine Color Urine Clarity Urine pH Ur Specific [place] Urine Protein Urine Glucose (UA) Urine Ketones Urine Occult Blood Urine Nitrate Urine Bilirubin Urine Ictotest Urine Urobilinogen Ur Leukocyte Esterase Urine RBC Urine WBC Hyaline Casts Urine Mucus Micro UA Comment Ur Microscopic Review Urine Culture Comments Blood Type O Positive Blood Type Recheck Antibody Screen Negative 03/30/18 03/30/18 03/30/18 16:35 16:35 19:46 WBC RBC Hgb Hct MCV MCH MCHC RDW Plt Count MPV Neut % (Auto) Lymph % (Auto) [place] % (Auto) Eos % (Auto) Baso % (Auto) Neut # (Auto) Lymph # (Auto) [place] # (Auto) Eos # (Auto) Baso # (Auto) WBC Differential Differential Comment PT INR APTT Sodium 137 Potassium 4.3 Chloride 104 Carbon Dioxide 23.5 Anion Gap 10 BUN 20 H Creatinine 0.58 L Estimated GFR Greater than 89 POC Glucose 68 Random Glucose 111 H Calcium 8.8 Magnesium 2.3 Total Bilirubin 3.4 H AST 269 H ALT 98 H Alkaline Phosphatase 467 H Total Protein 9.1 H Albumin 2.2 L Lipase 311 Urine Color Urine Clarity Urine pH Ur Specific [place] Urine Protein Urine Glucose (UA) Urine Ketones Urine Occult Blood Urine Nitrate Urine Bilirubin Urine Ictotest Urine Urobilinogen Ur Leukocyte Esterase Urine RBC Urine WBC Hyaline Casts Urine Mucus Micro UA Comment Ur Microscopic Review Urine Culture Comments Blood Type Blood Type Recheck Antibody Screen 03/30/18 03/30/18 03/31/18 20:24 21:13 00:43 WBC RBC Hgb Hct MCV MCH MCHC RDW Plt Count MPV Neut % (Auto) Lymph % (Auto) [place] % (Auto) Eos % (Auto) Baso % (Auto) Neut # (Auto) Lymph # (Auto) [place] # (Auto) Eos # (Auto) Baso # (Auto) WBC Differential Differential Comment PT INR APTT Sodium 136 Potassium 4.3 Chloride 104 Carbon Dioxide 22.7 Anion Gap 9 BUN 22 H Creatinine 0.74 Estimated GFR Greater than 89 POC Glucose 93 Random Glucose 166 H Calcium 8.8 Magnesium Total Bilirubin 3.2 H AST 243 H ALT 90 H Alkaline Phosphatase 446 H Total Protein 8.5 H D Albumin 2.1 L Lipase Urine Color Carol Urine Clarity Hazy H Urine pH 5.0 Ur Specific [place] 1.028 Urine Protein Negative Urine Glucose (UA) Negative Urine Ketones Negative Urine Occult Blood Negative Urine Nitrate Negative Urine Bilirubin Small H Urine Ictotest Positive H Urine Urobilinogen 4 or greater Ur Leukocyte Esterase Negative Urine RBC 2 Urine WBC 2 Hyaline Casts 15 Urine Mucus Few H Micro UA Comment Culture not ind Ur Microscopic Review Not Reportable Urine Culture Comments Culture not ind Blood Type Blood Type Recheck Antibody Screen 03/31/18 03/31/18 06:20 06:20 WBC 7.9 RBC 3.64 L Hgb 12.1 L Hct 36.0 L MCV 98.8 MCH 33.3 MCHC 33.7 RDW 15.3 Plt Count 275 MPV 8.1 Neut % (Auto) 70.5 H Lymph % (Auto) 20.1 [place] % (Auto) 7.8 Eos % (Auto) 1.2 Baso % (Auto) 0.4 Neut # (Auto) 5.6 Lymph # (Auto) 1.6 [place] # (Auto) 0.6 Eos # (Auto) 0.1 Baso # (Auto) 0.0 WBC Differential . Differential Comment Auto diff final PT INR APTT Sodium 138 Potassium 4.4 Chloride 105 Carbon Dioxide 24.6 Anion Gap 8 BUN 21 H Creatinine 0.62 Estimated GFR Greater than 89 POC Glucose Random Glucose 107 H Calcium 8.6 Magnesium Total Bilirubin AST ALT Alkaline Phosphatase Total Protein Albumin Lipase Urine Color Urine Clarity Urine pH Ur Specific [place] Urine Protein Urine Glucose (UA) Urine Ketones Urine Occult Blood Urine Nitrate Urine Bilirubin Urine Ictotest Urine Urobilinogen Ur Leukocyte Esterase Urine RBC Urine WBC Hyaline Casts Urine Mucus Micro UA Comment Ur Microscopic Review Urine Culture Comments Blood Type Blood Type Recheck Antibody Screen - Imaging Impressions Liver Ultrasound 03/30/18 18:33 CONCLUSION: 1. Hepatomegaly 2. Portal venous thrombosis with cavernous transformation. 3. 4 cm hypoechoic smooth margin mass in or near the head of the pancreas. 4. Marked amount of ascites. Assessment and Plan - Plan 52-year-old male with past medical history of HTN, ETOH sober for 5 years, cirrhosis of the liver, obstructive jaundice who came into the hospital for complaints of dark, black stools 3. Acute GI bleed -Reports melena 3, H&H does not show significant anemia upon arrival -Collect stool for occult blood -Sandostatin drip, Protonix drip started in ED -Trend H&H, Hgb 13.6 --> 12.1 -Consult gastroenterology. Per patient, he follows with [facility], has an appointment on Apr 13 Liver cirrhosis, transaminitis, Ascites, Hepatitis C: with complaints of abdominal pain -LFTs T bili 3.4, AST 269, ALT 98, alk phos 467 -compared to previous visit this is significantly improved -Review of previous CT, 03/02/18 CT abd/pelvis showed Cirrhotic liver, Small to moderate amount of ascites -Previous results reviewed 01/25/18 AFP 168.6, CA 19-9 antigen 211.2; HCV RNA [id number], genotype 1A - GI appointment for outpatient treatment -Liver U/S 03/30 showed hepatomegaly; portal venous thrombosis with cavernous transformation; 4 cm hypoechoic smooth margin mass in or near the head of the pancreas; marked amount of ascites -Continue Lasix, spironolactone -Consult GI, appreciate assistance Pancreatic Mass: seen on liver U/S, 4cm hypoechoic smooth margin mass in or near the head of the pancreas -Patient informed of these results -GI consulted as above Portal Vein Thrombosis: chronic -Xarelto on hold with GI bleed as above HTN -Continue amlodipine -Monitor BP trend DVT prophylaxis: Teds/SCDs; patient's Xarelto on hold with GI bleed and possible upcoming procedure
--- NOTE | 2018-03-31 15:09 | P.PCN ---
Date of procedure: 03/31/18 Pre-op diagnosis: Melena, anemia, cirrhosis Procedure: PROCEDURE PERFORMED EGD with biopsy INDICATION FOR PROCEDURE Melena, anemia, cirrhosis PROCEDURE: The procedure, risks and benefits were discussed with Patient/POA and informed consent was obtained. Anesthesia sedated Patient with Diprivan. Patient was placed in the left lateral decubitus position. EGD: The Pentax videoscope was introduced through the oropharynx and advanced to the second portion of the duodenum under direct visualization. Retroflexion was performed in the stomach. FINDINGS: The esophagus there was a small 1 column Of grade 1 esophageal varix no stigmata of bleeding otherwise unremarkable esophagus The stomach there was mild to moderate portal gastropathy throughout the gastric mucosa no gastric varices antral biopsies were taken for further evaluation The duodenum there was a nodularity with some patchy erythema noted in the duodenal bulb of unclear significance this was biopsied the rest of the duodenum was unremarkable ESTIMATED BLOOD LOSS: None SPECIMENS REMOVED: Gastric and duodenal biopsies COMPLICATIONS: None IMPRESSION: One column of grade 1 esophageal varices Mild to moderate portal gastropathy Duodenitis PLAN: Await biopsies PPI Continue with current supportive care Monitor labs EGD in 1 year Anesthesia: MAC Surgeon: Abrahan Muñiz Condition: stable Disposition: floor
--- NOTE | 2018-03-31 23:45 | P.CONGI ---
History of Present Illness Consult date: 03/31/18 Consult reason: Melena, anemia Chief complaint: GI Bleed ascited, abdominal pain History of Present Illness: Patient is a 52-year-old gentleman who was hospitalized about a month ago and was found to have cirrhosis he reports up until a few months ago he had been in good health and worked in construction but over the past couple of months he has lost quite a bit of weight and muscle mass and he is recently developed abdominal distention he noted black stools over the past few days but denies any nausea vomiting hematemesis coffee-ground emesis or any bright red blood per rectum the patient states that he quit drinking alcohol about 5 years ago he complains of abdominal discomfort but he is unable to qualify or quantify and currently appears to be comfortable in bed Review of Systems All other systems reviewed negative except as stated in HPI PMFSH - History History Provided By: Patient - Medical History Medical History: Medical History (Last Updated 03/30/18 @ 17:38 by Meredith Pandya) Hepatitis C antibody positive in blood (Acute) Hx of senior living use of blood thinners (Acute) Portal hypertension (Acute) Obstructive jaundice (Acute) Elevated liver enzymes (Acute) Portal vein thrombosis (Acute) Cirrhosis (Acute) - Surgical History Surgical History: Surgical History (Last Updated 03/30/18 @ 17:38 by Meredith Pandya) History of hernia surgery (Acute) - Family History Family History: Family History (Last Updated 03/30/18 @ 18:40 by FABRICE Ruff) Other Unknown family medical history - Tobacco History Second Hand Smoke Exposure: Yes Tobacco Use In Past 30 Days: Yes Smoking Status: Current every day smoker Tobacco Type: Cigarettes - Alcohol History How Often Do You Have a Drink Containing Alcohol: Never - Substance Use History Substance History: No History of Abuse - Travel History History of Recent Travel: No Recent Travel in the [place] Within the Last 8 Weeks: No Recent Travel Out of the Country Within the Last 8 Weeks: No - Immunization History Tetanus Immunization: Never Vaccinated Hx Influenza Vaccine This Season: No Medications and Allergies Active Medications: Active Medications Acetaminophen (Tylenol) 650 mg PO Q4H PRN PRN Reason: Temp > 100.4 Al Hydroxide/Mg Hydroxide (Milk Of Magnesia Liq) 30 ml PO Q12H PRN PRN Reason: Mild Constipation Amlodipine Besylate (Norvasc) 10 mg PO DAILY [facility] Last Admin: 03/31/18 10:57 Dose: 10 mg Bisacodyl (Dulcolax Supp) 10 mg RECTAL DAILY PRN PRN Reason: SEVERE CONSITIPATION Dextrose (D50w Vial) 50 ml IV.PUSH UNSCH PRN PRN Reason: PER HYPOGLYCEMIA PROTOCOL Furosemide (Lasix) 20 mg PO DAILY [facility] Last Admin: 03/31/18 10:57 Dose: 20 mg Glucagon (Glucagon Inj) 1 mg OTHER PRN PRN PRN Reason: for Hypoglycemia Protocol Pantoprazole Sodium 80 mg/ (Sodium Chloride) 100 mls @ 10 mls/hr IV.CONT CONT [facility] Last Admin: 03/31/18 22:42 Dose: 10 mls/hr Octreotide Acetate 500 mcg/ (Sodium Chloride) 500.5 mls @ 50.05 mls/hr IV.CONT .Q10H [facility] Last Admin: 03/31/18 16:34 Dose: 49.99 mcg/hr, 50.05 mls/hr Dextrose/Sodium Chloride (D5w/1/2 Ns Inj) 1,000 mls @ 70 mls/hr IV.CONT .[id number] [facility] Last Admin: 03/31/18 10:59 Dose: 70 mls/hr Miscellaneous Information ([facility] Information) 1 each OTHER UNSCH PRN PRN Reason: SEE LABEL COMMENTS Stop: 04/01/18 15:06 Morphine Sulfate (Morphine Inj) 2 mg IV.PUSH Q3H PRN PRN Reason: PAIN SCALE 5-10 Last Admin: 03/31/18 20:51 Dose: 2 mg Ondansetron HCl (Zofran Inj) 4 mg IV.PUSH Q6H PRN PRN Reason: NAUSEA OR VOMITING Propranolol HCl (Inderal) 20 mg PO BID [facility] Last Admin: 03/31/18 20:48 Dose: 20 mg Rivaroxaban (Xarelto) 20 mg PO DAILY [facility] Last Admin: 03/31/18 12:12 Dose: Not Given Sennosides (Senokot) 17.2 mg PO Q12H PRN PRN Reason: Moderate Constipation Sodium Chloride (Ns Flush) 2 ml IV.FLUSH PRN PRN PRN Reason: FLUSH AFTER USING IV ACCESS Spironolactone (Aldactone) 50 mg PO DAILY [facility] Last Admin: 08/23/18 10:57 Dose: 50 mg Allergies Allergy/AdvReac Type Severity Reaction Status Date / Time No Known Allergies AdvReac Unknown Uncoded 01/23/18 10:43 Home Medications Medication Instructions Recorded Confirmed Type amlodipine 10 mg PO DAILY 03/30/18 03/30/18 History rivaroxaban [Xarelto] 20 mg PO DAILY 03/30/18 03/30/18 History Exam Vital signs: Vital Signs 03/31/18 00:01 03/31/18 02:00 03/31/18 04:00 Temperature Pulse Rate 62 66 64 Respiratory Rate 18 18 18 Blood Pressure 137/88 120/75 112/70 Pulse Oximetry 98 96 97 03/31/18 07:44 03/31/18 13:16 03/31/18 15:07 Temperature 97.8 F 97.9 F Pulse Rate 60 61 67 Respiratory Rate 17 16 20 Blood Pressure 125/85 115/80 102/73 Pulse Oximetry 98 96 95 03/31/18 15:15 03/31/18 15:30 03/31/18 16:00 Temperature 97.8 F 98.0 F Pulse Rate 61 59 L 62 Respiratory Rate 18 17 18 Blood Pressure 99/77 L 108/76 112/81 Pulse Oximetry 98 95 96 03/31/18 17:35 03/31/18 19:36 03/31/18 20:00 Temperature 90 F L Pulse Rate 61 74 Respiratory Rate 20 18 Blood Pressure 135/92 H Pulse Oximetry 98 03/31/18 20:03 03/31/18 23:30 Temperature 98.3 F 98.6 F Pulse Rate 72 Respiratory Rate 18 Blood Pressure 117/74 Pulse Oximetry 96 Intake & Output 03/31/18 03/31/18 04/01/18 06:59 18:59 06:59 Intake Total 600.5 / 600.5 1999.1999.5 100 / 100 Output Total 200 / 200 0 / 0 400 / 400 Balance 400.5 / 400.5 1999. / 1999.5 -300 / -300 Weight 81.6 kg Intake: IV 600.5 / 600.5 1500.5 / 1500.5 100 / 100 D5W/1/2 NS Inj 1,000 ML @ 70 1000 / 1000 mls/hr IV.CONT .[id number] [facility] Rx# :[id number] SandoSTATIN Inj 500 MCG In NS 500.5 / 500.5 500.5 / 500.5 Inj 500 ML @ 50 MCG/HR 50.05 mls/hr IV.CONT .Q10H [facility] Rx#: [id number] Protonix Inj 80 MG In NS Inj 100 / 100 100 / 100 100 ML @ 10 mls/hr IV.CONT CONT [facility] Rx#:[id number] Oral 0 / 0 Anesthesia Amount 500 / 500 Output: Urine 200 / 200 0 / 0 400 / 400 Other: Date of Last Bowel Movement 03/30/18 Weight On Admission 81.647 kg - Constitutional no acute distress - Routine HEENT Exam Head: Present: normocephalic, atraumatic Eye: Present: EOMI - Routine Neck Exam Present: supple - Routine Respiratory Exam Present: CTA bilaterally - Routine Cardiovascular Exam Present: RRR. Absent: murmur, gallop, rubs - Routine Abdominal Exam Present: soft, tenderness, distended. Absent: rebound, guarding - Routine Extremities Exam Absent: cyanosis, clubbing, edema - Routine Skin Exam Present: dry, warm - Routine Neurological Exam Present: alert, normal speech Results - Labs CBC & Chem 7: 03/31/18 06:20 03/31/18 06:20 Labs: Laboratory Results - last 24 hr 03/31/18 03/31/18 03/31/18 00:43 06:20 06:20 WBC 7.9 RBC 3.64 L Hgb 12.1 L Hct 36.0 L MCV 98.8 MCH 33.3 MCHC 33.7 RDW 15.3 Plt Count 275 MPV 8.1 Neut % (Auto) 70.5 H Lymph % (Auto) 20.1 [place] % (Auto) 7.8 Eos % (Auto) 1.2 Baso % (Auto) 0.4 Neut # (Auto) 5.6 Lymph # (Auto) 1.6 [place] # (Auto) 0.6 Eos # (Auto) 0.1 Baso # (Auto) 0.0 WBC Differential . Differential Comment Auto diff final Sodium 138 Potassium 4.4 Chloride 105 Carbon Dioxide 24.6 Anion Gap 8 BUN 21 H Creatinine 0.62 Estimated GFR Greater than 89 Random Glucose 107 H Calcium 8.6 Urine Color Carol Urine Clarity Hazy H Urine pH 5.0 Ur Specific [place] 1.028 Urine Protein Negative Urine Glucose (UA) Negative Urine Ketones Negative Urine Occult Blood Negative Urine Nitrate Negative Urine Bilirubin Small H Urine Ictotest Positive H Urine Urobilinogen 4 or greater Ur Leukocyte Esterase Negative Urine RBC 2 Urine WBC 2 Hyaline Casts 15 Urine Mucus Few H Micro UA Comment Culture not ind Ur Microscopic Review Not Reportable Urine Culture Comments Culture not ind Assessment and Plan - Plan Patient with known history of alcohol use and hepatitis C recently diagnosed with cirrhosis presenting with melena and is noted to be anemic patient has not had any prior endoscopy In addition he has moderately tense ascites on physical examination review of records reveals significant elevation of alpha-fetoprotein but his CT of the abdomen done on prior admission with IV contrast does not reveal any masses or tumors in the liver the patient is also noted to have elevated liver function tests in a fashion and a pattern that is most suggestive of alcoholic hepatitis At this point we will proceed with an EGD I will obtain an MRI of the abdomen with and without contrast to further evaluate for possible underlying hepatocellular carcinoma I will repeat the alpha-fetoprotein Agree with current supportive measures Caution with fluids Once advanced on diet he needs to be on a low-salt diet We may need to up the dose of his diuretics we can go up to 100-200 mg of spironolactone if needed and sometimes we need to add Lasix at 20-40 mg based on his fluid balance Further recommendations shall depend on his hospital course and the results of above tests
[2018-04-01] MEDS: Morphine Inj 4 MG/ML Vial IV.PUSH PRN ×8 (00:12→22:48)
[2018-04-01] MEDS: Octreotide Inj 500 MCG in Sodium Chlor 0.9% Inj 500 ML IV.CONT SCH ×3 (00:29→18:52)
[2018-04-01] MEDS: Dextrose 5%/NaCl 0.45% Inj 1,000 ML IV.CONT SCH ×2 (00:36→15:26)
[2018-04-01 07:30] LABS: Hematocrit 34.5 % (39.0-51.0); Hemoglobin 11.9 gm/dL (13.0-17.0); Mean Corpuscular HGB Conc 34.4 % (32.0-36.0); Mean Corpuscular Hemoglobin 33.8 pg (27.0-34.0); Mean Corpuscular Volume 98.1 fL (80.0-100.0); Mean Platelet Volume 8.4 fL (7.0-11.0); Platelet Count 277 th/mm3 (150-450); Red Blood Count 3.52 mil/mm3 (4.50-5.90); White Blood Count 9.7 th/mm3 (4.0-11.0)
[2018-04-01 07:45] LABS: Alanine Aminotransferase 63 U/L (12-78); Albumin 1.9 g/dL (3.4-5.0); Anion Gap 8 meq/L (5-15); Aspartate Aminotransferase 228 U/L (15-37); Blood Urea Nitrogen 14 mg/dL (7-18); Calcium 7.9 mg/dL (8.5-10.1); Carbon Dioxide 25.1 meq/L (21.0-32.0); Chloride 106 meq/L (98-107); Glomerular Filtration Rate Greater Than 89 mL/min (>89); Glucose,Random 101 mg/dL (74-106); Potassium 3.9 meq/L (3.5-5.1); Sodium 139 meq/L (136-145)
[2018-04-01 07:48] LABS: Alkaline Phosphatase 333 U/L (45-117); Total Protein 7.4 g/dL (6.4-8.2)
--- NOTE | 2018-04-01 08:47 | P.PNGI ---
Subjective Interval history: Patient just coming back from MRI sitting up in the chair no acute complaints of nausea or vomiting Mild abdominal pressure otherwise no abdominal pain. Current hemoglobin 11.9 <LarissaKirti M - Last Filed: 04/01/18 16:16> Physical Exam Vital signs: Vital Signs 03/31/18 13:16 03/31/18 15:07 03/31/18 15:15 Temperature 97.8 F 97.9 F Pulse Rate 61 67 61 Respiratory Rate 16 20 18 Blood Pressure 115/80 102/73 99/77 L Pulse Oximetry 96 95 98 03/31/18 15:30 03/31/18 16:00 03/31/18 17:35 Temperature 97.8 F 98.0 F Pulse Rate 59 L 62 Respiratory Rate 17 18 20 Blood Pressure 108/76 112/81 Pulse Oximetry 95 96 03/31/18 19:36 03/31/18 20:00 03/31/18 20:03 Temperature 90 F L 98.3 F Pulse Rate 61 74 Respiratory Rate 18 Blood Pressure 135/92 H Pulse Oximetry 98 03/31/18 23:30 04/01/18 00:00 04/01/18 03:47 Temperature 98.6 F 98.4 F Pulse Rate 72 74 64 Respiratory Rate 18 16 Blood Pressure 117/74 111/72 Pulse Oximetry 96 96 04/01/18 04:00 04/01/18 07:33 Temperature Pulse Rate 65 60 Respiratory Rate Blood Pressure Pulse Oximetry Intake & Output 03/31/18 04/01/18 04/01/18 18:59 06:59 18:59 Intake Total 1999. / 1999. 2080.5 / 2080.5 Output Total 0 / 0 1150 / 1150 Balance 1999. / 1999. 930.5 / 930.5 Weight 81.6 kg Intake: IV 1500.5 / 1500.5 1600.5 / 1600.5 D5W/1/2 NS Inj 1,000 ML @ 70 1000 / 1000 1000 / 1000 mls/hr IV.CONT .[id number] [facility] Rx# :[id number] SandoSTATIN Inj 500 MCG In NS 500.5 / 500.5 500.5 / 500.5 Inj 500 ML @ 50 MCG/HR 50.05 mls/hr IV.CONT .Q10H [facility] Rx#: [id number] Protonix Inj 80 MG In NS Inj 100 / 100 100 ML @ 10 mls/hr IV.CONT CONT [facility] Rx#:[id number] Oral 0 / 0 480 / 480 Anesthesia Amount 500 / 500 Output: Urine 0 / 0 1150 / 1150 Other: Date of Last Bowel Movement 03/30/18 Weight On Admission 81.647 kg - Constitutional no acute distress - Routine HEENT Exam Head: Present: normocephalic ENT: Present: mucous membranes moist - Routine Respiratory Exam Present: accessory muscle use (Even, unlabored rest) - Routine Abdominal Exam Present: soft (No obvious tenderness, bowel sounds present, mild distention) - Routine Skin Exam Present: intact - Routine Neurological Exam Present: alert <Kirti Dias - Last Filed: 04/01/18 16:16> Vital signs: Vital Signs 04/01/18 16:00 04/01/18 20:00 04/02/18 00:00 Temperature 98.1 F 98.8 F 98.3 F Pulse Rate 70 77 68 Respiratory Rate 16 18 18 Blood Pressure 111/78 108/67 113/78 Pulse Oximetry 95 96 95 04/02/18 01:45 04/02/18 03:42 04/02/18 04:00 Temperature 98.2 F Pulse Rate 67 69 67 Respiratory Rate 18 Blood Pressure 117/80 Pulse Oximetry 95 04/02/18 08:00 04/02/18 11:15 04/02/18 11:51 Temperature 98.4 F 98.4 F Pulse Rate 72 70 66 Respiratory Rate 16 18 Blood Pressure 123/82 110/74 Pulse Oximetry 95 95 Intake & Output 04/01/18 04/02/18 04/02/18 18:59 06:59 18:59 Intake Total 1420 / 1420 1240 / 1240 602 / 602 Output Total 1550 / 1550 Balance 1420 / 1420 -310 / -310 602 / 602 Intake: IV 1420 / 1420 1000 / 1000 602 / 602 D5W/1/2 NS Inj 1,000 ML @ 70 1000 / 1000 1000 / 1000 602 / 602 mls/hr IV.CONT .[id number] [facility] Rx# :[id number] SandoSTATIN Inj 500 MCG In NS 300 / 300 Inj 500 ML @ 50 MCG/HR 50.05 mls/hr IV.CONT .Q10H [facility] Rx#: [id number] Protonix Inj 80 MG In NS Inj 120 / 120 100 ML @ 10 mls/hr IV.CONT CONT [facility] Rx#:[id number] Oral 240 / 240 Output: Urine 1550 / 1550 Other: # Voids 4 Date of Last Bowel Movement 04/01/18 <Abrahan Muñiz - Last Filed: 04/02/18 12:22> Results - Labs CBC & Chem 7: 04/01/18 06:41 04/01/18 06:41 Laboratory Results - last 24 hr 04/01/18 04/01/18 04/01/18 06:41 06:41 06:41 WBC 9.7 RBC 3.52 L Hgb 11.9 L Hct 34.5 L MCV 98.1 MCH 33.8 MCHC 34.4 RDW 15.0 Plt Count 277 MPV 8.4 Sodium 139 Potassium 3.9 Chloride 106 Carbon Dioxide 25.1 Anion Gap 8 BUN 14 Creatinine 0.69 Estimated GFR Greater than 89 Random Glucose 101 Calcium 7.9 L Total Bilirubin 2.8 H AST 228 H ALT 63 Alkaline Phosphatase 333 H Total Protein 7.4 D Albumin 1.9 L Tumor Marker AFP 631.0 H <Kirti Dias M - Last Filed: 04/01/18 16:16> - Labs CBC & Chem 7: 04/02/18 08:35 04/01/18 06:41 Laboratory Results - last 24 hr 04/02/18 04/02/18 08:35 08:35 WBC 8.7 RBC 3.66 L Hgb 12.4 L Hct 36.3 L MCV 99.3 MCH 34.0 MCHC 34.2 RDW 14.9 Plt Count 242 MPV 7.9 Neut % (Auto) 70.8 H Lymph % (Auto) 18.9 [place] % (Auto) 8.4 H Eos % (Auto) 1.6 Baso % (Auto) 0.3 Neut # (Auto) 6.2 Lymph # (Auto) 1.7 [place] # (Auto) 0.7 Eos # (Auto) 0.1 Baso # (Auto) 0.0 WBC Differential . Differential Comment Auto diff final PT 13.5 H INR 1.3 <Abrahan Muñiz - Last Filed: 04/02/18 12:22> Assessment and Plan - Plan Patient with known history of alcohol use and hepatitis C recently diagnosed with cirrhosis presenting with melena and is noted to be anemic patient has not had any prior endoscopy In addition he has moderately tense ascites on physical examination review of records reveals significant elevation of alpha-fetoprotein but his CT of the abdomen done on prior admission with IV contrast does not reveal any masses or tumors in the liver the patient is also noted to have elevated liver function tests in a fashion and a pattern that is most suggestive of alcoholic hepatitis At this point we will proceed with an EGD I will obtain an MRI of the abdomen with and without contrast to further evaluate for possible underlying hepatocellular carcinoma I will repeat the alpha-fetoprotein Agree with current supportive measures Caution with fluids Once advanced on diet he needs to be on a low-salt diet We may need to up the dose of his diuretics we can go up to 100-200 mg of spironolactone if needed and sometimes we need to add Lasix at 20-40 mg based on his fluid balance Further recommendations shall depend on his hospital course and the results of above tests 04/01/2018 EGD findings on 03/31/2018 include grade 1 esophageal varices, mild to moderate portal gastropathy Duodenitis, currently patient is able to eat a low-sodium diet and no nausea no vomiting. Patient denies any alcohol intake over the past 5 years but notes he was previous alcoholic. Labs show no obvious bleeding current hemoglobin 11.9, PT/INR 1.3. Discussed with patient follow-up with GI after his hospital stay and recommend EGD in 1 year. Patient had abdominal MRI today, findings include marked hepatic enlargement in his liver appearance with extensive replacement of the normal hepatic parenchyma with nodules. However an enlarging nodule of the left lobe is worrisome some for hepatocellular carcinoma biopsy understood guided CT would appear feasible if clinically indicated. Discussion with Dr. Muñiz and Dr. Bashir, MRI findings and plan of care 1530. We will continue to hold Mike, 5 day hold, spoke with Rita and CT plan is for CT-guided biopsy Wednesday a.m. PLAN: Diet cardiac diet Plan CT-guided biopsy right lobe evaluate for infiltrate versus hepatocellular carcinoma, will be done Wednesday a.m. Recheck CBC and PT/INR in the a.m. Await biopsies from EGD PPI Bowel regimen as needed After labs with special attention to hemoglobin and PT/INR EGD in 1 year Further recommendations to follow Patient was seen per stephanieelf and Dr. Muñiz, note was written on his behalf <Kirti Dias - Last Filed: 04/01/18 16:16> - Attending Attestation Patient seen and examined Agree with above Continue with current supportive care Monitor labs Case discussed in length with interventional radiology we will need to pursue a liver biopsy of the right lobe to rule out an infiltrating hepatocellular carcinoma Further recommendations shall depend on the biopsy <Abrahan Muñiz - Last Filed: 04/02/18 12:22>
[2018-04-01] MEDS ORDERED: Gadobutrol PF 10 MMOL/10 ML Vial (for RAD) IV.SIG ONE (09:12)
[2018-04-01] MEDS: Spironolactone 50 MG Tablet PO SCH (09:41)
[2018-04-01] MEDS: Furosemide 20 MG Tablet PO SCH (09:42)
[2018-04-01] MEDS: amLODIPine 5 MG Tablet PO SCH (09:42)
--- NOTE | 2018-04-01 09:56 | MR ---
EXAM DATE: 04/01/2018 9:15 AM EDT AGE/SEX: 52 years / Male INDICATIONS: Cirrhosis. CLINICAL DATA: This is the patient's initial encounter. Patient reports that signs and symptoms have been present for 1 day and indicates a pain score of 0/10. MEDICAL/SURGICAL HISTORY: Hepatitis C. Cirrhosis. Hypertension. Inguinal hernia repair. COMPARISON: [facility], CT ABDOMEN & PELVIS W CONTRAST, 03/02/2018. . TECHNIQUE: Multiplanar, multisequence images of the abdomen were obtained prior to and following adm inistration of 8 ml Omniscan (gadodiamide) contrast as a single exam dose with dynamic multiphase mason hnique. FINDINGS: Liver: The liver is markedly heterogeneous and cirrhotic in appearance with innumerable areas of foca l nodular alteration in signal intensity. The single area of most significant focal concern is a roug hly 3.5 cm area in the lateral segment of the left lobe along the posterior surface of the segment II parenchyma and notable for moderate increased T2 signal and moderate diffusion restriction. The area shows diminished central contrast enhancement and heterogeneous peripheral contrast enhancement. Thi s lesion appears to have increased in size just since the CT examination of last month. 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 Gallbladder: Moderate nonspecific gallbladder wall thickening. Spleen: Borderline size without focal lesion Pancreas: The pancreas is unremarkable. Adrenals: The adrenal glands appear normal. Kidneys: Multiple bilateral renal cysts. No hydronephrosis Retroperitoneum: Prominence of upper abdominal retroperitoneal and aortocaval lymph nodes again noted Post Contrast: See above discussion CONCLUSION: Markedly heterogeneous liver appearance with extensive replacement of the normal hepatic parenchyma w ith nodules, most of which are likely regenerative, however an enlarging nodule in the left lobe is p articularly worrisome for hepatocellular carcinoma. Biopsy under CT guidance would appear feasible if clinically indicated. Electronically signed by: Wade Bashir MD 04/01/2018 9:54 AM EDT
[2018-04-01] MEDS: Pantoprazole Inj 80 MG in Sodium Chlor 0.9% Inj 100 ML IV.CONT SCH (10:05)
--- NOTE | 2018-04-01 11:51 | P.PN ---
Subjective Interval history: Follow-up for cirrhosis, ascites, abdominal pain. Patient reports continued diffuse abdominal pain, worse across bilateral lower quadrants, with abdominal distention. He denies any nausea or vomiting. He reports a nonbloody formed BM overnight. Denies fevers or chills. He is tolerating oral intake. Denies any other medical complaints at this time. Physical Exam Vital signs: Vital Signs 03/31/18 13:16 03/31/18 15:07 03/31/18 15:15 Temperature 97.8 F 97.9 F Pulse Rate 61 67 61 Respiratory Rate 16 20 18 Blood Pressure 115/80 102/73 99/77 L Pulse Oximetry 96 95 98 03/31/18 15:30 03/31/18 16:00 03/31/18 17:35 Temperature 97.8 F 98.0 F Pulse Rate 59 L 62 Respiratory Rate 17 18 20 Blood Pressure 108/76 112/81 Pulse Oximetry 95 96 03/31/18 19:36 03/31/18 20:00 03/31/18 20:03 Temperature 90 F L 98.3 F Pulse Rate 61 74 Respiratory Rate 18 Blood Pressure 135/92 H Pulse Oximetry 98 03/31/18 23:30 04/01/18 00:00 04/01/18 03:47 Temperature 98.6 F 98.4 F Pulse Rate 72 74 64 Respiratory Rate 18 16 Blood Pressure 117/74 111/72 Pulse Oximetry 96 96 04/01/18 04:00 04/01/18 07:33 04/01/18 08:00 Temperature 97.7 F Pulse Rate 65 60 62 Respiratory Rate 14 Blood Pressure 118/84 Pulse Oximetry 95 Intake & Output 03/31/18 04/01/18 04/01/18 18:59 06:59 18:59 Intake Total 1999. / 1999.5 2080.5 / 2080.5 100 / 100 Output Total 0 / 0 1150 / 1150 Balance 1999. / 1999. 930.5 / 930.5 100 / 100 Weight 81.6 kg Intake: IV 1500.5 / 1500.5 1600.5 / 1600.5 100 / 100 D5W/1/2 NS Inj 1,000 ML @ 70 1000 / 1000 1000 / 1000 mls/hr IV.CONT .[id number] [facility] Rx# :[id number] SandoSTATIN Inj 500 MCG In NS 500.5 / 500.5 500.5 / 500.5 Inj 500 ML @ 50 MCG/HR 50.05 mls/hr IV.CONT .Q10H [facility] Rx#: [id number] Protonix Inj 80 MG In NS Inj 100 / 100 100 / 100 100 ML @ 10 mls/hr IV.CONT CONT [facility] Rx#:[id number] Oral 0 / 0 480 / 480 Anesthesia Amount 500 / 500 Output: Urine 0 / 0 1150 / 1150 Other: Date of Last Bowel Movement 03/30/18 Weight On Admission 81.647 kg Narrative: GENERAL: Well-nourished, well-developed middle-age male patient in [facility]. SKIN: Warm and dry. No rash. HEENT: Normocephalic. Atraumatic. Pupils equal and round. +mild scleral icterus. Mucous membranes pink and moist. CARDIOVASCULAR: Regular rate and rhythm. No murmur appreciated. RESPIRATORY: No accessory muscle use. Clear to auscultation. Breath sounds equal bilaterally. GASTROINTESTINAL: Abdomen soft, moderately distended with + fluid wave consistent with ascites; diffuse mild tenderness to palpation. Normoactive bowel sounds x4. MUSCULOSKELETAL: No obvious deformities. Extremities without clubbing, cyanosis , or edema. NEUROLOGICAL: Awake and alert. No obvious cranial nerve deficits. Motor grossly within normal limits. Moving all extremities spontaneously. Normal speech. PSYCHIATRIC: Appropriate mood and affect; insight and judgment normal. Results - Labs CBC & Chem 7: 04/01/18 06:41 04/01/18 06:41 Laboratory Results - last 24 hr 04/01/18 04/01/18 04/01/18 06:41 06:41 06:41 WBC 9.7 RBC 3.52 L Hgb 11.9 L Hct 34.5 L MCV 98.1 MCH 33.8 MCHC 34.4 RDW 15.0 Plt Count 277 MPV 8.4 Sodium 139 Potassium 3.9 Chloride 106 Carbon Dioxide 25.1 Anion Gap 8 BUN 14 Creatinine 0.69 Estimated GFR Greater than 89 Random Glucose 101 Calcium 7.9 L Total Bilirubin 2.8 H AST 228 H ALT 63 Alkaline Phosphatase 333 H Total Protein 7.4 D Albumin 1.9 L Tumor Marker AFP 631.0 H - Imaging Impressions Abdomen MRI 04/01/18 00:00 CONCLUSION: Markedly heterogeneous liver appearance with extensive replacement of the normal hepatic parenchyma with nodules, most of which are likely regenerative, however an enlarging nodule in the left lobe is particularly worrisome for hepatocellular carcinoma. Biopsy under CT guidance would appear feasible if clinically indicated. - Procedures 03/31/18 EGD showed: One column of grade 1 esophageal varices Mild to moderate portal gastropathy Duodenitis Assessment and Plan - Plan 52-year-old male with past medical history of HTN, ETOH sober for 5 years, cirrhosis of the liver, obstructive jaundice who came into the hospital for complaints of dark, black stools 3. Acute GI bleed -Reports melena 3, H&H does not show significant anemia upon arrival -Collect stool for occult blood -Sandostatin drip, Protonix drip started in ED, now d/jcarlos -Trend H&H, Hgb 13.6 --> 12.1 --> 11.9 -Consult gastroenterology -S/p EGD 03/31 shows esophageal varices, mild to moderate portal gastropathy, duodenitis -Continue protonix -No further melena Liver cirrhosis, transaminitis, Ascites, Hepatitis C: with complaints of abdominal pain -LFTs T bili 3.4, AST 269, ALT 98, alk phos 467 -compared to previous visit this is significantly improved -Review of previous CT, 03/02/18 CT abd/pelvis showed Cirrhotic liver, Small to moderate amount of ascites -Previous results reviewed 01/25/18 AFP 168.6, CA 19-9 antigen 211.2; HCV RNA [id number], genotype 1A - GI appointment for outpatient treatment -Liver U/S 03/30 showed hepatomegaly; portal venous thrombosis with cavernous transformation; 4 cm hypoechoic smooth margin mass in or near the head of the pancreas; marked amount of ascites -Continue Lasix, spironolactone -Consult GI, appreciate assistance Liver Nodule: acute -AFP elevated at 631 -Abdominal MRI showed markedly heterogeneous liver appearance with extensive replacement of the normal hepatic parenchyma with nodules, most of which are likely regenerative, however an enlarging nodule in the left lobe is particularly worrisome for hepatocellular carcinoma. Biopsy under CT guidance recommended -GI consulted as above Pancreatic Mass: seen on liver U/S, 4cm hypoechoic smooth margin mass in or near the head of the pancreas -Patient informed of these results -GI consulted as above -However, abdomen MRI shows pancreas is unremarkable Portal Vein Thrombosis: chronic -Xarelto on hold with GI bleed as above HTN -Continue amlodipine -Monitor BP trend DVT prophylaxis: Teds/SCDs; patient's Xarelto on hold with GI bleed and possible upcoming biopsy
[2018-04-02] MEDS: Morphine Inj 4 MG/ML Vial IV.PUSH PRN ×7 (02:08→21:26)
[2018-04-02] MEDS: Dextrose 5%/NaCl 0.45% Inj 1,000 ML IV.CONT SCH (05:12)
[2018-04-02] MEDS: Spironolactone 50 MG Tablet PO SCH (08:46)
[2018-04-02] MEDS: Furosemide 20 MG Tablet PO SCH (08:47)
[2018-04-02] MEDS: amLODIPine 5 MG Tablet PO SCH (08:47)
[2018-04-02 09:00] LABS: Baso % (Auto) 0.3 % (0.0-2.0); Eos # (Auto) 0.1 th/mm3 (0.0-0.4); Eos % (Auto) 1.6 % (0.0-4.0); Hematocrit 36.3 % (39.0-51.0); Hemoglobin 12.4 gm/dL (13.0-17.0); Lymph # (Auto) 1.7 th/mm3 (1.0-4.8); Lymph % (Auto) 18.9 % (9.0-44.0); Mean Corpuscular HGB Conc 34.2 % (32.0-36.0); Mean Corpuscular Volume 99.3 fL (80.0-100.0); Mean Platelet Volume 7.9 fL (7.0-11.0); Mono # (Auto) 0.7 th/mm3 (0.0-0.9); Mono % (Auto) 8.4 % (0.0-8.0); Neut # (Auto) 6.2 th/mm3 (1.8-7.7); Neut % (Auto) 70.8 % (16.0-70.0); Platelet Count 242 th/mm3 (150-450); Red Blood Count 3.66 mil/mm3 (4.50-5.90); Red Cell Distribution Width 14.9 % (11.6-17.2); White Blood Count 8.7 th/mm3 (4.0-11.0)
[2018-04-02 09:07] LABS: INR 1.3 Ratio; Prothrombin Time 13.5 sec (9.8-11.6)
--- NOTE | 2018-04-02 14:57 | P.PN ---
Subjective Interval history: Follow up for cirrhosis, ascites, liver mass. The patient reports continued diffuse lower abdominal pain and distention. He is tolerating oral intake. Denies nausea/vomiting. Denies fevers/chills. Denies any further melena. Denies any other medical complaints at this time. Physical Exam Vital signs: Vital Signs 04/01/18 16:00 04/01/18 20:00 04/02/18 00:00 Temperature 98.1 F 98.8 F 98.3 F Pulse Rate 70 77 68 Respiratory Rate 16 18 18 Blood Pressure 111/78 108/67 113/78 Pulse Oximetry 95 96 95 04/02/18 01:45 04/02/18 03:42 04/02/18 04:00 Temperature 98.2 F Pulse Rate 67 69 67 Respiratory Rate 18 Blood Pressure 117/80 Pulse Oximetry 95 04/02/18 08:00 04/02/18 11:15 04/02/18 11:51 Temperature 98.4 F 98.4 F Pulse Rate 72 70 66 Respiratory Rate 16 18 Blood Pressure 123/82 110/74 Pulse Oximetry 95 95 Intake & Output 04/01/18 04/02/18 04/02/18 18:59 06:59 18:59 Intake Total 1420 / 1420 1240 / 1240 602 / 602 Output Total 1550 / 1550 850 / 850 Balance 1420 / 1420 -310 / -310 -248 / -248 Intake: IV 1420 / 1420 1000 / 1000 602 / 602 D5W/1/2 NS Inj 1,000 ML @ 70 1000 / 1000 1000 / 1000 602 / 602 mls/hr IV.CONT .[id number] [facility] Rx# :[id number] SandoSTATIN Inj 500 MCG In NS 300 / 300 Inj 500 ML @ 50 MCG/HR 50.05 mls/hr IV.CONT .Q10H [facility] Rx#: [id number] Protonix Inj 80 MG In NS Inj 120 / 120 100 ML @ 10 mls/hr IV.CONT CONT [facility] Rx#:[id number] Oral 240 / 240 Output: Urine 1550 / 1550 850 / 850 Other: # Voids 4 Date of Last Bowel Movement 04/01/18 04/02/18 # Bowel Movements 1 Narrative: GENERAL: Well-nourished, well-developed middle-aged male patient in [facility]. SKIN: Warm and dry. No rash. HEENT: Normocephalic. Atraumatic. Pupils equal and round. +mild scleral icterus. Mucous membranes pink and moist. CARDIOVASCULAR: Regular rate and rhythm. No murmur appreciated. RESPIRATORY: No accessory muscle use. Clear to auscultation. Breath sounds equal bilaterally. GASTROINTESTINAL: Abdomen soft, moderately distended with + fluid wave consistent with ascites; mild diffuse lower abdominal TTP. Normoactive bowel sounds x4. MUSCULOSKELETAL: No obvious deformities. Extremities without clubbing, cyanosis , or edema. NEUROLOGICAL: Awake and alert. No obvious cranial nerve deficits. Motor grossly within normal limits. Moving all extremities spontaneously. Normal speech. PSYCHIATRIC: Appropriate mood and affect; insight and judgment normal. Results - Labs CBC & Chem 7: 04/02/18 08:35 04/01/18 06:41 Laboratory Results - last 24 hr 04/02/18 04/02/18 08:35 08:35 WBC 8.7 RBC 3.66 L Hgb 12.4 L Hct 36.3 L MCV 99.3 MCH 34.0 MCHC 34.2 RDW 14.9 Plt Count 242 MPV 7.9 Neut % (Auto) 70.8 H Lymph % (Auto) 18.9 Bacon % (Auto) 8.4 H Eos % (Auto) 1.6 Baso % (Auto) 0.3 Neut # (Auto) 6.2 Lymph # (Auto) 1.7 Bacon # (Auto) 0.7 Eos # (Auto) 0.1 Baso # (Auto) 0.0 WBC Differential . Differential Comment Auto diff final PT 13.5 H INR 1.3 - Imaging Liver Ultrasound 03/30/18 18:33 CONCLUSION: 1. Hepatomegaly 2. Portal venous thrombosis with cavernous transformation. 3. 4 cm hypoechoic smooth margin mass in or near the head of the pancreas. 4. Marked amount of ascites. Abdomen MRI 04/01/18 00:00 CONCLUSION: Markedly heterogeneous liver appearance with extensive replacement of the normal hepatic parenchyma with nodules, most of which are likely regenerative, however an enlarging nodule in the left lobe is particularly worrisome for hepatocellular carcinoma. Biopsy under CT guidance would appear feasible if clinically indicated. - Procedures 03/31/18 EGD showed: One column of grade 1 esophageal varices Mild to moderate portal gastropathy Duodenitis Assessment and Plan - Plan 52-year-old male with past medical history of HTN, ETOH sober for 5 years, cirrhosis of the liver, obstructive jaundice who came into the hospital for complaints of dark, black stools 3. Acute GI bleed -Reports melena 3, H&H does not show significant anemia upon arrival -Collect stool for occult blood -Sandostatin drip, Protonix drip started in ED, now d/jcarlos -Trend H&H, Hgb 13.6 --> 12.1 --> 11.9 -Consult gastroenterology -S/p EGD 03/31 shows esophageal varices, mild to moderate portal gastropathy, duodenitis -Continue protonix -No further melena Liver cirrhosis, transaminitis, Ascites, Hepatitis C: with complaints of abdominal pain -LFTs T bili 3.4, AST 269, ALT 98, alk phos 467 -compared to previous visit this is significantly improved -Review of previous CT, 03/02/18 CT abd/pelvis showed Cirrhotic liver, Small to moderate amount of ascites -Previous results reviewed 01/25/18 AFP 168.6, CA 19-9 antigen 211.2; HCV RNA [id number], genotype 1A - GI appointment for outpatient treatment -Liver U/S 03/30 showed hepatomegaly; portal venous thrombosis with cavernous transformation; 4 cm hypoechoic smooth margin mass in or near the head of the pancreas; marked amount of ascites -Continue Lasix, spironolactone -Consult GI, appreciate assistance Liver Mass: acute. Concern for malignancy. -AFP elevated at 631 -Abdominal MRI showed markedly heterogeneous liver appearance with extensive replacement of the normal hepatic parenchyma with nodules, most of which are likely regenerative, however an enlarging nodule in the left lobe is particularly worrisome for hepatocellular carcinoma. Biopsy under CT guidance recommended -GI consulted as above -Plan for biopsy on Wednesday 04/04 (Xarelto needs to be held x5days) Pancreatic Mass: seen on liver U/S, 4cm hypoechoic smooth margin mass in or near the head of the pancreas -Patient informed of these results -GI consulted as above -However, abdomen MRI shows pancreas is unremarkable Portal Vein Thrombosis: chronic -Xarelto on hold with GI bleed as above HTN -Continue amlodipine -Monitor BP trend DVT prophylaxis: Teds/SCDs; patient's Xarelto on hold with GI bleed and possible upcoming biopsy
--- NOTE | 2018-04-02 21:11 | P.PNGI ---
Subjective Interval history: Laying comfortably in bed denies any pain Physical Exam Vital signs: Vital Signs 04/02/18 00:00 04/02/18 01:45 04/02/18 03:42 Temperature 98.3 F 98.2 F Pulse Rate 68 67 69 Respiratory Rate 18 18 Blood Pressure 113/78 117/80 Pulse Oximetry 95 95 04/02/18 04:00 04/02/18 08:00 04/02/18 11:15 Temperature 98.4 F Pulse Rate 67 72 70 Respiratory Rate 16 Blood Pressure 123/82 Pulse Oximetry 95 04/02/18 11:51 04/02/18 15:00 04/02/18 16:00 Temperature 98.4 F 98.5 F Pulse Rate 66 76 79 Respiratory Rate 18 16 Blood Pressure 110/74 118/73 Pulse Oximetry 95 96 04/02/18 19:28 Temperature 98.6 F Pulse Rate 83 Respiratory Rate 18 Blood Pressure 116/74 Pulse Oximetry 95 Intake & Output 04/02/18 04/02/18 04/03/18 06:59 18:59 06:59 Intake Total 1240 / 1240 602 / 602 Output Total 1550 / 1550 850 / 850 Balance -310 / -310 -248 / -248 Intake: IV 1000 / 1000 602 / 602 D5W/1/2 NS Inj 1,000 ML @ 70 1000 / 1000 602 / 602 mls/hr IV.CONT .[id number] [facility] Rx# :[id number] Oral 240 / 240 Output: Urine 1550 / 1550 850 / 850 Other: Date of Last Bowel Movement 04/01/18 04/02/18 # Bowel Movements 1 - Constitutional no acute distress - Routine HEENT Exam Head: Present: normocephalic Eye: Present: EOMI ENT: Present: mucous membranes moist - Routine Neck Exam Present: supple - Routine Respiratory Exam Present: CTA bilaterally - Routine Cardiovascular Exam Present: RRR - Routine Abdominal Exam Present: soft, normoactive bowel sounds Results - Labs CBC & Chem 7: 04/02/18 08:35 04/01/18 06:41 Laboratory Results - last 24 hr 04/02/18 04/02/18 08:35 08:35 WBC 8.7 RBC 3.66 L Hgb 12.4 L Hct 36.3 L MCV 99.3 MCH 34.0 MCHC 34.2 RDW 14.9 Plt Count 242 MPV 7.9 Neut % (Auto) 70.8 H Lymph % (Auto) 18.9 Ida % (Auto) 8.4 H Eos % (Auto) 1.6 Baso % (Auto) 0.3 Neut # (Auto) 6.2 Lymph # (Auto) 1.7 Ida # (Auto) 0.7 Eos # (Auto) 0.1 Baso # (Auto) 0.0 WBC Differential . Differential Comment Auto diff final PT 13.5 H INR 1.3 - Procedures 03/31/18 EGD showed: One column of grade 1 esophageal varices Mild to moderate portal gastropathy Duodenitis Assessment and Plan - Plan Patient with known history of alcohol use and hepatitis C recently diagnosed with cirrhosis presenting with melena and is noted to be anemic patient has not had any prior endoscopy In addition he has moderately tense ascites on physical examination review of records reveals significant elevation of alpha-fetoprotein but his CT of the abdomen done on prior admission with IV contrast does not reveal any masses or tumors in the liver the patient is also noted to have elevated liver function tests in a fashion and a pattern that is most suggestive of alcoholic hepatitis At this point we will proceed with an EGD I will obtain an MRI of the abdomen with and without contrast to further evaluate for possible underlying hepatocellular carcinoma I will repeat the alpha-fetoprotein Agree with current supportive measures Caution with fluids Once advanced on diet he needs to be on a low-salt diet We may need to up the dose of his diuretics we can go up to 100-200 mg of spironolactone if needed and sometimes we need to add Lasix at 20-40 mg based on his fluid balance Further recommendations shall depend on his hospital course and the results of above tests 04/01/2018 EGD findings on 03/31/2018 include grade 1 esophageal varices, mild to moderate portal gastropathy Duodenitis, currently patient is able to eat a low-sodium diet and no nausea no vomiting. Patient denies any alcohol intake over the past 5 years but notes he was previous alcoholic. Labs show no obvious bleeding current hemoglobin 11.9, PT/INR 1.3. Discussed with patient follow-up with GI after his hospital stay and recommend EGD in 1 year. Patient had abdominal MRI today, findings include marked hepatic enlargement in his liver appearance with extensive replacement of the normal hepatic parenchyma with nodules. However an enlarging nodule of the left lobe is worrisome some for hepatocellular carcinoma biopsy understood guided CT would appear feasible if clinically indicated. Discussion with Dr. Muñiz and Dr. Bashir, MRI findings and plan of care 1529. We will continue to hold Xarelto, 5 day hold, spoke with Rita and CT plan is for CT-guided biopsy Wednesday a.m. PLAN: Diet cardiac diet Plan CT-guided biopsy right lobe to evaluate for infiltrating hepatocellular carcinoma, will be done Wednesday a.m. Recheck CBC and PT/INR in the a.m. Await biopsies from EGD PPI Bowel regimen as needed After labs with special attention to hemoglobin and PT/INR EGD in 1 year Further recommendations to follow
[2018-04-03] MEDS: Morphine Inj 4 MG/ML Vial IV.PUSH PRN ×7 (00:42→21:22)
[2018-04-03] MEDS: Furosemide 20 MG Tablet PO SCH (08:08)
[2018-04-03] MEDS: amLODIPine 5 MG Tablet PO SCH (08:08)
[2018-04-03] MEDS: Spironolactone 50 MG Tablet PO SCH (08:09)
--- NOTE | 2018-04-03 09:27 | P.PN ---
Subjective Interval history: Follow up for cirrhosis, ascites, liver mass. Patient reports feeling slightly better today. He reports decreased abdominal distention, however still with some mild discomfort across bilateral lower quadrants. Denies any nausea or vomiting. Had a bowel movement yesterday, described as nonbloody and formed. Tolerating oral intake. Denies any other medical complaints at this time. Planning for liver biopsy tomorrow. Physical Exam Vital signs: Vital Signs 04/02/18 11:15 04/02/18 11:51 04/02/18 15:00 Temperature 98.4 F Pulse Rate 70 66 76 Respiratory Rate 18 Blood Pressure 110/74 Pulse Oximetry 95 04/02/18 16:00 04/02/18 19:28 04/02/18 20:00 Temperature 98.5 F 98.6 F Pulse Rate 79 83 97 H Respiratory Rate 16 18 Blood Pressure 118/73 116/74 Pulse Oximetry 96 95 04/02/18 23:22 04/03/18 00:00 04/03/18 03:33 Temperature 98.7 F 98.8 F Pulse Rate 78 77 78 Respiratory Rate 18 18 Blood Pressure 108/71 118/68 Pulse Oximetry 94 L 96 04/03/18 04:00 04/03/18 07:54 Temperature 98.9 F Pulse Rate 75 81 Respiratory Rate 14 Blood Pressure 119/73 Pulse Oximetry 96 Intake & Output 04/02/18 04/03/18 04/03/18 18:59 06:59 18:59 Intake Total 602 / 602 720 / 720 Output Total 850 / 850 1250 / 1250 Balance -248 / -248 -530 / -530 Intake: IV 602 / 602 D5W/1/2 NS Inj 1,000 ML @ 70 602 / 602 mls/hr IV.CONT .[id number] [facility] Rx# :[id number] Oral 720 / 720 Output: Urine 850 / 850 1250 / 1250 Other: Date of Last Bowel Movement 04/02/18 04/01/18 # Bowel Movements 1 Narrative: GENERAL: Well-nourished, well-developed middle-aged male patient in [facility]. SKIN: Warm and dry. No rash. HEENT: Normocephalic. Atraumatic. Pupils equal and round. +mild scleral icterus. Mucous membranes pink and moist. CARDIOVASCULAR: Regular rate and rhythm. No murmur appreciated. RESPIRATORY: No accessory muscle use. Clear to auscultation. Breath sounds equal bilaterally. GASTROINTESTINAL: Abdomen soft, mildly distended with + fluid wave consistent with mild ascites; mild diffuse lower abdominal TTP. Normoactive bowel sounds x4. Palpable hepatomegaly. MUSCULOSKELETAL: No obvious deformities. Extremities without clubbing, cyanosis , or edema. NEUROLOGICAL: Awake and alert. No obvious cranial nerve deficits. Motor grossly within normal limits. Moving all extremities spontaneously. Normal speech. PSYCHIATRIC: Appropriate mood and affect; insight and judgment normal. Results - Labs CBC & Chem 7: 04/02/18 08:35 04/01/18 06:41 - Imaging Liver Ultrasound 03/30/18 18:33 CONCLUSION: 1. Hepatomegaly 2. Portal venous thrombosis with cavernous transformation. 3. 4 cm hypoechoic smooth margin mass in or near the head of the pancreas. 4. Marked amount of ascites. Abdomen MRI 04/01/18 00:00 CONCLUSION: Markedly heterogeneous liver appearance with extensive replacement of the normal hepatic parenchyma with nodules, most of which are likely regenerative, however an enlarging nodule in the left lobe is particularly worrisome for hepatocellular carcinoma. Biopsy under CT guidance would appear feasible if clinically indicated. - Procedures 03/31/18 EGD showed: One column of grade 1 esophageal varices Mild to moderate portal gastropathy Duodenitis Assessment and Plan - Plan 52-year-old male with past medical history of HTN, ETOH sober for 5 years, cirrhosis of the liver, obstructive jaundice who came into the hospital for complaints of dark, black stools 3. Acute GI bleed -Reports melena 3, H&H does not show significant anemia upon arrival -Sandostatin drip, Protonix drip started in ED, now d/jcarlos -Trend H&H, Hgb 13.6 --> 12.1 --> 11.9 --> 12.4 -Consult gastroenterology -S/p EGD 03/31 shows esophageal varices, mild to moderate portal gastropathy, duodenitis -Continue on po protonix -No further melena, resolved Liver cirrhosis, transaminitis, Ascites, Hepatitis C: with complaints of abdominal pain -LFTs T bili 3.4, AST 269, ALT 98, alk phos 467 -compared to previous visit this is significantly improved -Review of previous CT, 03/02/18 CT abd/pelvis showed Cirrhotic liver, Small to moderate amount of ascites -Previous results reviewed 01/25/18 AFP 168.6, CA 19-9 antigen 211.2; HCV RNA [id number], genotype 1A - GI appointment for outpatient treatment -Liver U/S 03/30 showed hepatomegaly; portal venous thrombosis with cavernous transformation; 4 cm hypoechoic smooth margin mass in or near the head of the pancreas; marked amount of ascites -Continue Lasix, spironolactone -Consult GI, appreciate assistance Liver Mass: acute. Concern for malignancy. -AFP elevated at 631 -Abdominal MRI showed markedly heterogeneous liver appearance with extensive replacement of the normal hepatic parenchyma with nodules, most of which are likely regenerative, however an enlarging nodule in the left lobe is particularly worrisome for hepatocellular carcinoma. Biopsy under CT guidance recommended -GI consulted as above -Plan for biopsy on Wednesday 04/04 (Xarelto needs to be held x5days) Pancreatic Mass: seen on liver U/S, 4cm hypoechoic smooth margin mass in or near the head of the pancreas -Patient informed of these results -GI consulted as above -However, abdomen MRI shows pancreas is unremarkable Portal Vein Thrombosis: chronic -Xarelto on hold with GI bleed as above HTN -Continue amlodipine -Monitor BP trend DVT prophylaxis: Teds/SCDs; patient's Xarelto on hold with GI bleed and possible upcoming biopsy Discharge Planning: Plan for liver biopsy tomorrow 04/04. Patient already has a follow-up appointment with [facility] on 04/13.
--- NOTE | 2018-04-03 22:28 | P.PNGI ---
Subjective Interval history: Laying comfortably in bed no new complaints Physical Exam Vital signs: Vital Signs 04/02/18 23:22 04/03/18 00:00 04/03/18 03:33 Temperature 98.7 F 98.8 F Pulse Rate 78 77 78 Respiratory Rate 18 18 Blood Pressure 108/71 118/68 Pulse Oximetry 94 L 96 04/03/18 04:00 04/03/18 07:54 04/03/18 12:00 Temperature 98.9 F 98.4 F Pulse Rate 75 81 79 Respiratory Rate 14 16 Blood Pressure 119/73 112/62 Pulse Oximetry 96 95 04/03/18 15:58 04/03/18 16:00 04/03/18 20:00 Temperature 98.3 F 99.5 F Pulse Rate 79 80 90 Respiratory Rate 16 20 Blood Pressure 113/69 118/75 Pulse Oximetry 96 96 Intake & Output 04/03/18 04/03/18 04/04/18 06:59 18:59 06:59 Intake Total 720 / 720 1100 / 1100 Output Total 1250 / 1250 800 / 800 Balance -530 / -530 300 / 300 Intake: Oral 720 / 720 600 / 600 Anesthesia Amount 500 / 500 Output: Urine 1250 / 1250 800 / 800 Other: # Voids 4 Date of Last Bowel Movement 04/01/18 04/01/18 # Bowel Movements 1 - Constitutional no acute distress - Routine HEENT Exam Head: Present: normocephalic Eye: Present: EOMI ENT: Present: mucous membranes moist - Routine Neck Exam Present: supple - Routine Respiratory Exam Present: CTA bilaterally - Routine Cardiovascular Exam Present: RRR - Routine Abdominal Exam Present: soft, normoactive bowel sounds - Routine Extremities Exam Absent: cyanosis, clubbing Results - Labs CBC & Chem 7: 04/02/18 08:35 04/01/18 06:41 - Procedures 03/31/18 EGD showed: One column of grade 1 esophageal varices Mild to moderate portal gastropathy Duodenitis Assessment and Plan - Plan Patient with known history of alcohol use and hepatitis C recently diagnosed with cirrhosis presenting with melena and is noted to be anemic patient has not had any prior endoscopy In addition he has moderately tense ascites on physical examination review of records reveals significant elevation of alpha-fetoprotein but his CT of the abdomen done on prior admission with IV contrast does not reveal any masses or tumors in the liver the patient is also noted to have elevated liver function tests in a fashion and a pattern that is most suggestive of alcoholic hepatitis At this point we will proceed with an EGD I will obtain an MRI of the abdomen with and without contrast to further evaluate for possible underlying hepatocellular carcinoma I will repeat the alpha-fetoprotein Agree with current supportive measures Caution with fluids Once advanced on diet he needs to be on a low-salt diet We may need to up the dose of his diuretics we can go up to 100-200 mg of spironolactone if needed and sometimes we need to add Lasix at 20-40 mg based on his fluid balance Further recommendations shall depend on his hospital course and the results of above tests 04/01/2018 EGD findings on 03/31/2018 include grade 1 esophageal varices, mild to moderate portal gastropathy Duodenitis, currently patient is able to eat a low-sodium diet and no nausea no vomiting. Patient denies any alcohol intake over the past 5 years but notes he was previous alcoholic. Labs show no obvious bleeding current hemoglobin 11.9, PT/INR 1.3. Discussed with patient follow-up with GI after his hospital stay and recommend EGD in 1 year. Patient had abdominal MRI today, findings include marked hepatic enlargement in his liver appearance with extensive replacement of the normal hepatic parenchyma with nodules. However an enlarging nodule of the left lobe is worrisome some for hepatocellular carcinoma biopsy understood guided CT would appear feasible if clinically indicated. Discussion with Dr. Muñiz and Dr. Bashir, MRI findings and plan of care 1530. We will continue to hold Kontest, 5 day hold, spoke with Rita and CT plan is for CT-guided biopsy Wednesday.m. PLAN: Diet cardiac diet Plan CT-guided biopsy right lobe to evaluate for infiltrating hepatocellular carcinoma, will be done Wednesday a.m. Recheck CBC and PT/INR in the a.m. Await biopsies from EGD PPI Bowel regimen as needed After labs with special attention to hemoglobin and PT/INR EGD in 1 year Further recommendations to follow
[2018-04-04] MEDS: Morphine Inj 4 MG/ML Vial IV.PUSH PRN ×7 (00:37→21:43)
[2018-04-04] MEDS: Spironolactone 50 MG Tablet PO SCH (08:41)
[2018-04-04] MEDS: amLODIPine 5 MG Tablet PO SCH (08:42)
[2018-04-04] MEDS: Furosemide 20 MG Tablet PO SCH (08:42)
--- NOTE | 2018-04-04 09:19 | P.PN ---
Subjective Interval history: Follow-up for cirrhosis, ascites, liver mass. Patient reports overall feeling better today. Abdominal distention improving, and less abdominal pain. Denies any nausea or vomiting. Had a normal a bowel movement yesterday. Denies fevers or chills. Going for liver biopsy today. Plans to go home after liver biopsy is cleared by GI. Physical Exam Vital signs: Vital Signs 04/03/18 12:00 04/03/18 15:58 04/03/18 16:00 Temperature 98.4 F 98.3 F Pulse Rate 79 79 80 Respiratory Rate 16 16 Blood Pressure 112/62 113/69 Pulse Oximetry 95 96 04/03/18 20:00 04/04/18 00:00 04/04/18 03:27 Temperature 99.5 F 99.0 F 98.9 F Pulse Rate 90 80 78 Respiratory Rate 20 21 22 Blood Pressure 118/75 115/72 115/72 Pulse Oximetry 96 94 L 95 04/04/18 07:36 04/04/18 08:00 Temperature 98.7 F Pulse Rate 72 77 Respiratory Rate 14 Blood Pressure 107/64 Pulse Oximetry 96 Intake & Output 04/03/18 04/04/18 04/04/18 18:59 06:59 18:59 Intake Total 1100 / 1100 Output Total 800 / 800 650 / 650 Balance 300 / 300 -650 / -650 Weight 82.4 kg Intake: Oral 600 / 600 Anesthesia Amount 500 / 500 Output: Urine 800 / 800 650 / 650 Other: # Voids 4 Date of Last Bowel Movement 04/01/18 # Bowel Movements 1 Narrative: GENERAL: Well-nourished, well-developed middle-aged male patient in [facility]. SKIN: Warm and dry. No rash. HEENT: Normocephalic. Atraumatic. Pupils equal and round. +mild scleral icterus. Mucous membranes pink and moist. CARDIOVASCULAR: Regular rate and rhythm. No murmur appreciated. RESPIRATORY: No accessory muscle use. Clear to auscultation. Breath sounds equal bilaterally. GASTROINTESTINAL: Abdomen soft, mildly distended with + fluid wave consistent with mild ascites; mild diffuse lower abdominal TTP; overall much improved. Normoactive bowel sounds x4. Palpable hepatomegaly. MUSCULOSKELETAL: No obvious deformities. Extremities without clubbing, cyanosis , or edema. NEUROLOGICAL: Awake and alert. No obvious cranial nerve deficits. Motor grossly within normal limits. Moving all extremities spontaneously. Normal speech. PSYCHIATRIC: Appropriate mood and affect; insight and judgment normal. Results - Labs CBC & Chem 7: 04/02/18 08:35 04/01/18 06:41 - Imaging Liver Ultrasound 03/30/18 18:33 CONCLUSION: 1. Hepatomegaly 2. Portal venous thrombosis with cavernous transformation. 3. 4 cm hypoechoic smooth margin mass in or near the head of the pancreas. 4. Marked amount of ascites. Abdomen MRI 04/01/18 00:00 CONCLUSION: Markedly heterogeneous liver appearance with extensive replacement of the normal hepatic parenchyma with nodules, most of which are likely regenerative, however an enlarging nodule in the left lobe is particularly worrisome for hepatocellular carcinoma. Biopsy under CT guidance would appear feasible if clinically indicated. - Procedures 03/31/18 EGD showed: One column of grade 1 esophageal varices Mild to moderate portal gastropathy Duodenitis 04/04/18 CT-guided liver biopsy Assessment and Plan - Plan 52-year-old male with past medical history of HTN, ETOH sober for 5 years, cirrhosis of the liver, obstructive jaundice who came into the hospital for complaints of dark, black stools 3. Acute GI bleed -Reports melena 3, H&H does not show significant anemia upon arrival -Sandostatin drip, Protonix drip started in ED, now d/jcarlos -Trend H&H, Hgb 13.6 --> 12.1 --> 11.9 --> 12.4 -Consult gastroenterology -S/p EGD 03/31 shows esophageal varices, mild to moderate portal gastropathy, duodenitis -Continue on po protonix -No further melena, resolved Liver cirrhosis, transaminitis, Ascites, Hepatitis C: with complaints of abdominal pain -LFTs T bili 3.4, AST 269, ALT 98, alk phos 467 -compared to previous visit this is significantly improved -Review of previous CT, 03/02/18 CT abd/pelvis showed Cirrhotic liver, Small to moderate amount of ascites -Previous results reviewed 01/25/18 AFP 168.6, CA 19-9 antigen 211.2; HCV RNA [id number], genotype 1A - GI appointment for outpatient treatment -Liver U/S 03/30 showed hepatomegaly; portal venous thrombosis with cavernous transformation; 4 cm hypoechoic smooth margin mass in or near the head of the pancreas; marked amount of ascites -Continue Lasix, spironolactone -Consult GI, appreciate assistance -Symptoms much improved with diuresis, outpatient follow-up with GI Liver Mass: acute. Concern for malignancy. -AFP elevated at 631 -Abdominal MRI showed markedly heterogeneous liver appearance with extensive replacement of the normal hepatic parenchyma with nodules, most of which are likely regenerative, however an enlarging nodule in the left lobe is particularly worrisome for hepatocellular carcinoma. Biopsy under CT guidance recommended -GI consulted as above -Plan for biopsy today 04/04 (Xarelto needs to be held x5days) -Update 1630hrs: Per RN, IR needs to perform paracentesis prior to liver biopsy, procedure postponed until tomorrow. Pancreatic Mass: initially seen on liver U/S, 4cm hypoechoic smooth margin mass in or near the head of the pancreas -Patient informed of these results -GI consulted as above -However, abdomen MRI shows pancreas is unremarkable, no mass Portal Vein Thrombosis: chronic -Xarelto on hold with GI bleed as above HTN -Continue amlodipine -Monitor BP trend DVT prophylaxis: Teds/SCDs; patient's Xarelto on hold with GI bleed and upcoming biopsy Discharge Planning: Plan for paracentesis and liver biopsy tomorrow 04/05. Will likely discharge after liver biopsy and completion of observation after biopsy. Patient already has a follow-up appointment with [facility] on 04/13.
--- NOTE | 2018-04-04 10:08 | P.PNGI ---
Subjective Interval history: Patient is n.p.o. pending CT-guided biopsy. Does note some right upper quadrant pressure and discomfort often known but no acute pain. States bowel movement within the past 24 hours no obvious bleeding <Kirti Dias - Last Filed: 04/04/18 10:03> Physical Exam Vital signs: Vital Signs 04/03/18 12:00 04/03/18 15:58 04/03/18 16:00 Temperature 98.4 F 98.3 F Pulse Rate 79 79 80 Respiratory Rate 16 16 Blood Pressure 112/62 113/69 Pulse Oximetry 95 96 04/03/18 20:00 04/04/18 00:00 04/04/18 03:27 Temperature 99.5 F 99.0 F 98.9 F Pulse Rate 90 80 78 Respiratory Rate 20 21 22 Blood Pressure 118/75 115/72 115/72 Pulse Oximetry 96 94 L 95 04/04/18 07:36 04/04/18 08:00 Temperature 98.7 F Pulse Rate 72 77 Respiratory Rate 14 Blood Pressure 107/64 Pulse Oximetry 96 Intake & Output 04/03/18 04/04/18 04/04/18 18:59 06:59 18:59 Intake Total 1100 / 1100 Output Total 800 / 800 650 / 650 Balance 300 / 300 -650 / -650 Weight 82.4 kg Intake: Oral 600 / 600 Anesthesia Amount 500 / 500 Output: Urine 800 / 800 650 / 650 Other: # Voids 4 Date of Last Bowel Movement 04/01/18 # Bowel Movements 1 - Constitutional no acute distress - Routine HEENT Exam Head: Present: normocephalic Eye: Present: conjunctival icterus ENT: Present: mucous membranes moist - Routine Neck Exam Present: supple - Routine Respiratory Exam Present: accessory muscle use - Routine Cardiovascular Exam Present: S1, S2 (Even, unlabored) - Routine Abdominal Exam Present: soft, distended (Round,), organomegaly (Liver) - Routine Skin Exam Present: intact, jaundice <Kirti Dias - Last Filed: 04/04/18 10:03> Vital signs: Vital Signs 04/03/18 15:58 04/03/18 16:00 04/03/18 20:00 Temperature 98.3 F 99.5 F Pulse Rate 79 80 90 Respiratory Rate 16 20 Blood Pressure 113/69 118/75 Pulse Oximetry 96 96 04/04/18 00:00 04/04/18 03:27 04/04/18 07:36 Temperature 99.0 F 98.9 F 98.7 F Pulse Rate 80 78 72 Respiratory Rate 21 22 14 Blood Pressure 115/72 115/72 107/64 Pulse Oximetry 94 L 95 96 04/04/18 08:00 04/04/18 12:00 Temperature 99.0 F Pulse Rate 77 73 Respiratory Rate 16 Blood Pressure 118/74 Pulse Oximetry 95 Intake & Output 04/03/18 04/04/18 04/04/18 18:59 06:59 18:59 Intake Total 1100 / 1100 Output Total 800 / 800 650 / 650 850 / 850 Balance 300 / 300 -650 / -650 -850 / -850 Weight 82.4 kg Intake: Oral 600 / 600 Anesthesia Amount 500 / 500 Output: Urine 800 / 800 650 / 650 850 / 850 Other: # Voids 4 1 Date of Last Bowel Movement 04/01/18 # Bowel Movements 1 <Kristen Edgar - Last Filed: 04/04/18 14:54> Results - Labs CBC & Chem 7: 04/02/18 08:35 04/01/18 06:41 - Procedures 03/31/18 EGD showed: One column of grade 1 esophageal varices Mild to moderate portal gastropathy Duodenitis <Kirti Dias - Last Filed: 04/04/18 10:03> - Labs CBC & Chem 7: 04/02/18 08:35 04/01/18 06:41 <Kristen Edgar - Last Filed: 04/04/18 14:54> Assessment and Plan - Plan Patient with known history of alcohol use and hepatitis C recently diagnosed with cirrhosis presenting with melena and is noted to be anemic patient has not had any prior endoscopy In addition he has moderately tense ascites on physical examination review of records reveals significant elevation of alpha-fetoprotein but his CT of the abdomen done on prior admission with IV contrast does not reveal any masses or tumors in the liver the patient is also noted to have elevated liver function tests in a fashion and a pattern that is most suggestive of alcoholic hepatitis At this point we will proceed with an EGD I will obtain an MRI of the abdomen with and without contrast to further evaluate for possible underlying hepatocellular carcinoma I will repeat the alpha-fetoprotein Agree with current supportive measures Caution with fluids Once advanced on diet he needs to be on a low-salt diet We may need to up the dose of his diuretics we can go up to 100-200 mg of spironolactone if needed and sometimes we need to add Lasix at 20-40 mg based on his fluid balance Further recommendations shall depend on his hospital course and the results of above tests 04/01/2018 EGD findings on 03/31/2018 include grade 1 esophageal varices, mild to moderate portal gastropathy Duodenitis, currently patient is able to eat a low-sodium diet and no nausea no vomiting. Patient denies any alcohol intake over the past 5 years but notes he was previous alcoholic. Labs show no obvious bleeding current hemoglobin 11.9, PT/INR 1.3. Discussed with patient follow-up with GI after his hospital stay and recommend EGD in 1 year. Patient had abdominal MRI today, findings include marked hepatic enlargement in his liver appearance with extensive replacement of the normal hepatic parenchyma with nodules. However an enlarging nodule of the left lobe is worrisome some for hepatocellular carcinoma biopsy understood guided CT would appear feasible if clinically indicated. Discussion with Dr. Muñiz and Dr. Bashir, MRI findings and plan of care 1530. We will continue to hold Xarelto, 5 day hold, spoke with Rita and CT plan is for CT-guided biopsy Wednesday a.m. 04/04/2018 patient is n.p.o. pending CT-guided biopsy today. Patient denies any acute nausea vomiting and states appetite is fair. Plan is for biopsies and further evaluation of hepatocellular carcinoma. Currently no other GI symptoms and no obvious bleeding. Hemoglobin 12.4 PT/INR 1.3 alpha-fetoprotein 631. Plan for EGD in 1 year. Xarelto on hold. Patient will need his CBC and PT/INR monitored. Will recheck in a.m. PLAN: Diet n.p.o. CT-guided biopsy right lobe to evaluate for infiltrating hepatocellular carcinoma, today, pending Await biopsies from EGD PPI EGD in 1 year Further recommendations to follow Patient was seen per myself and Dr. Edgar, note was written on his behalf <Kirti Dias - Last Filed: 04/04/18 10:03> - Plan Seen and examined with [employer]GER, await liver biopsy today. The exam, history, and the medical decision-making described in the above note were completed with the assistance of the mid-level provider. I reviewed and agree with the findings presented. I attest that I had a [id number] encounter with the patient on the same day, and personally performed and documented my assessment and findings in the medical record. <Kristen Edgar - Last Filed: 04/04/18 14:54>
[2018-04-05] MEDS: Morphine Inj 4 MG/ML Vial IV.PUSH PRN ×7 (00:51→23:56)
[2018-04-05 05:18] LABS: Baso # (Auto) 0.1 th/mm3 (0.0-0.2); Eos # (Auto) 0.1 th/mm3 (0.0-0.4); Eos % (Auto) 0.6 % (0.0-4.0); Hematocrit 36.6 % (39.0-51.0); Hemoglobin 12.4 gm/dL (13.0-17.0); Lymph # (Auto) 1.7 th/mm3 (1.0-4.8); Lymph % (Auto) 17.8 % (9.0-44.0); Mean Corpuscular HGB Conc 33.9 % (32.0-36.0); Mean Corpuscular Volume 100.4 fL (80.0-100.0); Mono # (Auto) 0.9 th/mm3 (0.0-0.9); Mono % (Auto) 9.3 % (0.0-8.0); Neut % (Auto) 71.3 % (16.0-70.0); Platelet Count 215 th/mm3 (150-450); Red Blood Count 3.65 mil/mm3 (4.50-5.90); Red Cell Distribution Width 14.6 % (11.6-17.2); White Blood Count 9.8 th/mm3 (4.0-11.0)
[2018-04-05 05:27] LABS: INR 1.4 Ratio; Prothrombin Time 13.9 sec (9.8-11.6)
[2018-04-05] MEDS: Furosemide 20 MG Tablet PO SCH (09:01)
[2018-04-05] MEDS: Spironolactone 50 MG Tablet PO SCH (09:01)
[2018-04-05] MEDS: amLODIPine 5 MG Tablet PO SCH (09:02)
--- NOTE | 2018-04-05 09:55 | P.PN ---
Subjective Interval history: Follow-up for cirrhosis, ascites, liver mass. Patient seen and examined today. States he is doing okay. Continues to have abdominal distention. Denies any nausea or vomiting. Denies fevers or chills. Physical Exam Vital signs: Vital Signs 04/04/18 12:00 04/04/18 15:03 04/04/18 16:00 Temperature 99.0 F 98.4 F Pulse Rate 73 75 Respiratory Rate 16 16 16 Blood Pressure 118/74 118/76 Pulse Oximetry 95 98 04/04/18 18:52 04/04/18 20:00 04/05/18 00:00 Temperature 98.2 F 98.8 F Pulse Rate 74 72 Respiratory Rate 16 18 18 Blood Pressure 116/52 L 112/68 Pulse Oximetry 86 L 98 04/05/18 04:00 04/05/18 08:00 Temperature 98.5 F Pulse Rate 76 76 Respiratory Rate 18 Blood Pressure 118/72 Pulse Oximetry 94 L Intake & Output 04/04/18 04/05/18 04/05/18 18:59 06:59 18:59 Output Total 1200 / 1200 Balance -1200 / -1200 Output: Urine 1200 / 1200 Other: # Voids 2 Date of Last Bowel Movement 04/03/18 04/04/18 Narrative: GENERAL: Well-nourished, well-developed middle-aged male patient in [facility]. SKIN: Warm and dry. No rash. HEENT: Normocephalic. Atraumatic. Pupils equal and round. +mild scleral icterus. Mucous membranes pink and moist. CARDIOVASCULAR: Regular rate and rhythm. No murmur appreciated. RESPIRATORY: No accessory muscle use. Clear to auscultation. Breath sounds equal bilaterally. GASTROINTESTINAL: Abdomen soft, mildly distended with + fluid wave consistent with mild ascites; mild diffuse lower abdominal TTP; overall much improved. Normoactive bowel sounds x4. Palpable hepatomegaly. MUSCULOSKELETAL: No obvious deformities. Extremities without clubbing, cyanosis , or edema. NEUROLOGICAL: Awake and alert. No obvious cranial nerve deficits. Motor grossly within normal limits. Moving all extremities spontaneously. Normal speech. PSYCHIATRIC: Appropriate mood and affect; insight and judgment normal. Results - Labs CBC & Chem 7: 04/05/18 04:20 04/01/18 06:41 Laboratory Results - last 24 hr 04/05/18 04/05/18 04:20 04:20 WBC 9.8 RBC 3.65 L Hgb 12.4 L Hct 36.6 L MCV 100.4 H MCH 34.0 MCHC 33.9 RDW 14.6 Plt Count 215 MPV 9.0 Neut % (Auto) 71.3 H Lymph % (Auto) 17.8 [place] % (Auto) 9.3 H Eos % (Auto) 0.6 Baso % (Auto) 1.0 Neut # (Auto) 7.0 Lymph # (Auto) 1.7 [place] # (Auto) 0.9 Eos # (Auto) 0.1 Baso # (Auto) 0.1 WBC Differential . Differential Comment Auto diff final PT 13.9 H INR 1.4 - Procedures 03/31/18 EGD showed: One column of grade 1 esophageal varices Mild to moderate portal gastropathy Duodenitis 04/04/18 CT-guided liver biopsy Assessment and Plan - Plan Patient is a 52-year-old male with past medical history of HTN, ETOH sober for 5 years, cirrhosis of the liver, obstructive jaundice who came into the hospital for complaints of dark, black stools 3 today. Complains of abdominal pain, diffuse, 03/18, does not know what aggravates or relieves the symptom. States that he just got out of the hospital for the same complaints of abdominal pain. Patient states that he was just seeing a new PCP at [facility] and was told that he needs a liver transplant. Denies any nausea, vomiting, fevers, chills. Denies hematemesis, hematuria. Reports poor appetite , shortness of breath and dyspnea occasionally especially with activities. Reports abdomen increasing in size. Denies chest pain, palpitations. Acute GI bleed -Reports melena 3, H&H does not show significant anemia, 13.6/38.7, for now -Sandostatin drip, Protonix drip started on ED now completed -Trend H&H, Hgb 13.6 --> 12.1 --> 11.9 --> 12.4 -Consult gastroenterology -S/p EGD 03/31 shows esophageal varices, mild to moderate portal gastropathy, duodenitis -Continue on po protonix -No further melena, resolved Liver cirrhosis, transaminitis Ascites Hepatitis C Complains of abdominal pain -LFTs T bili 3.4, AST 269, ALT 98, alk phos 467 -compared to previous visit this is significantly improved -Review of previous CT, 03/02/18 CT of the abdomen and pelvis showed Cirrhotic liver, Small to moderate amount of ascites -Previous results reviewed01/25/18 AFP 168.6, CA 19-9 antigen 211.2 -01/24/18 HCV RNA [id number], genotype 1A - GI appointment for outpatient treatment -Liver U/S 03/30 showed hepatomegaly; portal venous thrombosis with cavernous transformation; 4 cm hypoechoic smooth margin mass in or near the head of the pancreas; marked amount of ascites -Continue Lasix, spironolactone -Consult GI, appreciate assistance -Symptoms much improved with diuresis, outpatient follow-up with GI Liver Mass: acute. Concern for malignancy. -AFP elevated at 631 -Abdominal MRI showed markedly heterogeneous liver appearance with extensive replacement of the normal hepatic parenchyma with nodules, most of which are likely regenerative, however an enlarging nodule in the left lobe is particularly worrisome for hepatocellular carcinoma. Biopsy under CT guidance recommended -GI consulted as above -Plan for biopsy today 04/04 (Xarelto needs to be held x5days) -Plan for paracentesis prior to biopsy. May DC home post biopsy if unremarkable Pancreatic Mass: initially seen on liver U/S, 4cm hypoechoic smooth margin mass in or near the head of the pancreas -Patient informed of these results -GI consulted as above -However, abdomen MRI shows pancreas is unremarkable, no mass Portal Vein Thrombosis: chronic -Xarelto on hold with GI bleed as above HTN -Continue amlodipine -Monitor BP trend DVT prophylaxis: Teds/SCDs; patient's Xarelto on hold with GI bleed and upcoming biopsy Code Status: Full code Discussed Condition With: Patient, nursing Discharge Planning: Plan to DC home when uneventful biopsy
[2018-04-05] MEDS ORDERED: Lidocaine 1%/Epinephrine 1:100,000 Inj 20 ML Vial ONE (11:40)
[2018-04-05] MEDS ORDERED: fentaNYL Citrate Inj 250 MCG/5 ML Ampul ONE (12:46)
--- NOTE | 2018-04-05 14:16 | P.RAD ---
Post CT Procedure Prog Note - Pre Procedure Diagnosis (1) Hepatitis C antibody positive in blood - Post Procedure Diagnosis (1) Hepatitis C antibody positive in blood - Procedure Information Supervising Radiologist: Nacho Quezada MD - Plan of Activity Patient to Unit: Nursing Unit Patient condition: Fair See PACS Report for procedural detail/treatment. Biopsy CT Liver Specimen: Core Biopsy
--- NOTE | 2018-04-05 14:38 | CT ---
EXAM DATE: 04/05/2018 2:25 PM EDT AGE/SEX: 52 years / Male INDICATIONS: Biopsy of liver mass. CLINICAL DATA: This is the patient's initial encounter. Patient reports that signs and symptoms have been present for 1 day and indicates a pain score of 0/10. MEDICAL/SURGICAL HISTORY: Cirrhosis. Hepatitis C. Hypertension. Portal vein thrombosis. . H ernia surgery. COMPARISON: [facility] [place], CT ABDOMEN & PELVIS W CONTRAST, 03/02/2018. . SEDATION TIME (min): 20 min BIOPSY SITE: . liver MEDICATION(S): 2.5 mg midazolam (Versed) IV 125 mcg fentanyl (Sublimaze) IV DEVICE(S): 18 gauge BARD biopsy needle Five core specimen(s) sent to the laboratory for pathologic evaluation. . . PROCEDURE: CT guided . liver biopsy Conscious sedation with continuous EKG and oximetry monitoring. EKG and oximetry remained stable throughout the procedure. Prior to the procedure informed consent was obtained. Any appropriate prior imaging studies were rev iewed. Using automated exposure control and adjustment of the mA and/or kV according to patient size, radiat ion dose was kept as low as reasonably achievable to obtain optimal diagnostic quality images. DICOM format image data is available electronically for review and comparison. The site was prepped in a sterile fashion. Full sterile technique was used, including cap, mask, severo rile gloves and gown and a large sterile sheet. Hand hygiene and 2% chlorhexidine and/or betadine/al cohol prep was utilized per protocol for cutaneous antisepsis. The skin and subcutaneous tissues wer e infiltrated with local anesthetic solution. With CT guidance the previously identified target was localized. Biopsy was performed using the presc ribed needle as above. Adequate hemostasis was obtained with compression at the puncture site. Follow-up CT scan reveals no hemorrhage. The patient tolerated the procedure well and there were no complications. The patient was returned to the Radiology Outpatient Unit in stable condition. CONCLUSION: 1. Uncomplicated CT guided biopsy. Electronically signed by: Nacho Quezada MD 04/05/2018 2:37 PM EDT
--- NOTE | 2018-04-05 18:28 | P.PNGI ---
Subjective Interval history: Patient's resting in the bed n.p.o. pending liver biopsy labs are stable current hemoglobin 12.4 PT/INR 1.4 <Kirti Dias - Last Filed: 04/05/18 18:28> Physical Exam Vital signs: Vital Signs 04/04/18 18:52 04/04/18 20:00 04/05/18 00:00 Temperature 98.2 F 98.8 F Pulse Rate 74 72 Respiratory Rate 16 18 18 Blood Pressure 116/52 L 112/68 Pulse Oximetry 86 L 98 04/05/18 04:00 04/05/18 08:00 04/05/18 14:25 Temperature 98.5 F 98.3 F Pulse Rate 76 76 71 Respiratory Rate 18 18 Blood Pressure 118/72 104/70 Pulse Oximetry 94 L 94 L 04/05/18 14:30 04/05/18 14:45 04/05/18 15:00 Temperature Pulse Rate 74 74 Respiratory Rate 18 18 18 Blood Pressure 112/66 106/70 111/72 Pulse Oximetry 96 96 96 04/05/18 16:00 04/05/18 18:13 04/05/18 18:16 Temperature 97.9 F 98.0 F Pulse Rate 73 78 Respiratory Rate 18 15 Blood Pressure 112/73 95/59 L 135/67 Pulse Oximetry 96 95 Intake & Output 04/04/18 04/05/18 04/05/18 18:59 06:59 18:59 Output Total 1200 / 1200 Balance -1200 / -1200 Output: Urine 1200 / 1200 Other: # Voids 2 Date of Last Bowel Movement 04/03/18 04/04/18 - Constitutional no acute distress, mild distress - Routine HEENT Exam Head: Present: normocephalic ENT: Present: mucous membranes dry - Routine Respiratory Exam Present: accessory muscle use - Routine Cardiovascular Exam Present: S1, S2 - Routine Abdominal Exam Present: soft (Round) - Routine Skin Exam Present: intact - Routine Neurological Exam Present: alert (Answering simple questions) <Kirti Dias - Last Filed: 04/05/18 18:28> Vital signs: Vital Signs 04/05/18 00:00 04/05/18 04:00 04/05/18 08:00 Temperature 98.8 F 98.5 F Pulse Rate 72 76 76 Respiratory Rate 18 18 Blood Pressure 112/68 118/72 Pulse Oximetry 98 94 L 04/05/18 14:25 04/05/18 14:30 04/05/18 14:45 Temperature 98.3 F Pulse Rate 71 74 74 Respiratory Rate 18 18 18 Blood Pressure 104/70 112/66 106/70 Pulse Oximetry 94 L 96 96 04/05/18 15:00 04/05/18 16:00 04/05/18 18:13 Temperature 97.9 F 98.0 F Pulse Rate 73 78 Respiratory Rate 18 18 15 Blood Pressure 111/72 112/73 95/59 L Pulse Oximetry 96 96 95 04/05/18 18:16 Temperature Pulse Rate Respiratory Rate Blood Pressure 135/67 Pulse Oximetry Intake & Output 04/05/18 04/05/18 04/06/18 06:59 18:59 06:59 Other: Date of Last Bowel Movement 04/03/18 04/04/18 <Kristen Edgar - Last Filed: 04/05/18 20:19> Results - Labs CBC & Chem 7: 04/05/18 04:20 04/01/18 06:41 Laboratory Results - last 24 hr 04/05/18 04/05/18 04:20 04:20 WBC 9.8 RBC 3.65 L Hgb 12.4 L Hct 36.6 L MCV 100.4 H MCH 34.0 MCHC 33.9 RDW 14.6 Plt Count 215 MPV 9.0 Neut % (Auto) 71.3 H Lymph % (Auto) 17.8 Garland % (Auto) 9.3 H Eos % (Auto) 0.6 Baso % (Auto) 1.0 Neut # (Auto) 7.0 Lymph # (Auto) 1.7 Garland # (Auto) 0.9 Eos # (Auto) 0.1 Baso # (Auto) 0.1 WBC Differential . Differential Comment Auto diff final PT 13.9 H INR 1.4 - Imaging Impressions Liver Biopsy CT 04/05/18 00:00 CONCLUSION: 1. Uncomplicated CT guided biopsy. - Procedures 03/31/18 EGD showed: One column of grade 1 esophageal varices Mild to moderate portal gastropathy Duodenitis 04/04/18 CT-guided liver biopsy <Kirti Dias - Last Filed: 04/05/18 18:28> - Labs CBC & Chem 7: 04/05/18 04:20 04/01/18 06:41 Laboratory Results - last 24 hr 04/05/18 04/05/18 04:20 04:20 WBC 9.8 RBC 3.65 L Hgb 12.4 L Hct 36.6 L MCV 100.4 H MCH 34.0 MCHC 33.9 RDW 14.6 Plt Count 215 MPV 9.0 Neut % (Auto) 71.3 H Lymph % (Auto) 17.8 Garland % (Auto) 9.3 H Eos % (Auto) 0.6 Baso % (Auto) 1.0 Neut # (Auto) 7.0 Lymph # (Auto) 1.7 Garland # (Auto) 0.9 Eos # (Auto) 0.1 Baso # (Auto) 0.1 WBC Differential . Differential Comment Auto diff final PT 13.9 H INR 1.4 - Imaging Impressions Liver Biopsy CT 04/05/18 00:00 CONCLUSION: 1. Uncomplicated CT guided biopsy. <Kristen Edgar - Last Filed: 04/05/18 20:19> Assessment and Plan - Plan Patient with known history of alcohol use and hepatitis C recently diagnosed with cirrhosis presenting with melena and is noted to be anemic patient has not had any prior endoscopy In addition he has moderately tense ascites on physical examination review of records reveals significant elevation of alpha-fetoprotein but his CT of the abdomen done on prior admission with IV contrast does not reveal any masses or tumors in the liver the patient is also noted to have elevated liver function tests in a fashion and a pattern that is most suggestive of alcoholic hepatitis At this point we will proceed with an EGD I will obtain an MRI of the abdomen with and without contrast to further evaluate for possible underlying hepatocellular carcinoma I will repeat the alpha-fetoprotein Agree with current supportive measures Caution with fluids Once advanced on diet he needs to be on a low-salt diet We may need to up the dose of his diuretics we can go up to 100-200 mg of spironolactone if needed and sometimes we need to add Lasix at 20-40 mg based on his fluid balance Further recommendations shall depend on his hospital course and the results of above tests 04/01/2018 EGD findings on 03/31/2018 include grade 1 esophageal varices, mild to moderate portal gastropathy Duodenitis, currently patient is able to eat a low-sodium diet and no nausea no vomiting. Patient denies any alcohol intake over the past 5 years but notes he was previous alcoholic. Labs show no obvious bleeding current hemoglobin 11.9, PT/INR 1.3. Discussed with patient follow-up with GI after his hospital stay and recommend EGD in 1 year. Patient had abdominal MRI today, findings include marked hepatic enlargement in his liver appearance with extensive replacement of the normal hepatic parenchyma with nodules. However an enlarging nodule of the left lobe is worrisome some for hepatocellular carcinoma biopsy understood guided CT would appear feasible if clinically indicated. Discussion with Dr. Muñiz and Dr. Bashir, MRI findings and plan of care 1530. We will continue to hold Xarelto, 5 day hold, spoke with Rita and CT plan is for CT-guided biopsy Wednesday a.m. 04/04/2018 patient is n.p.o. pending CT-guided biopsy today. Patient denies any acute nausea vomiting and states appetite is fair. Plan is for biopsies and further evaluation of hepatocellular carcinoma. Currently no other GI symptoms and no obvious bleeding. Hemoglobin 12.4 PT/INR 1.3 alpha-fetoprotein 631. Plan for EGD in 1 year. Xarelto on hold. Patient will need his CBC and PT/INR monitored. Will recheck in a.m. 04/05/[address]-guided biopsy which is been done today. Currently patient symptoms appear to be managed and he is n.p.o. Further recommendations after liver biopsy, evaluation for hepatocellular carcinoma. Note EGD biopsies are pending and EGD will be repeated in 1 year. PLAN: Diet n.p.o. CT-guided biopsy right lobe , pending today biopsies pending from EGD PPI Further recommendations to follow Patient was seen per myself and Dr. Edgra note was written on his behalf <Kirti Dias - Last Filed: 04/05/18 18:28> - Plan Liver biopsy today. The exam, history, and the medical decision-making described in the above note were completed with the assistance of the mid-level provider. I reviewed and agree with the findings presented. I attest that I had a [id number] encounter with the patient on the same day, and personally performed and documented my assessment and findings in the medical record. <Herve,Peterson - Last Filed: 04/05/18 20:19>
[2018-04-06] MEDS: Morphine Inj 4 MG/ML Vial IV.PUSH PRN ×3 (03:05→09:49)
[2018-04-06] MEDS: Furosemide 20 MG Tablet PO SCH (08:44)
[2018-04-06] MEDS: amLODIPine 5 MG Tablet PO SCH (08:45)
[2018-04-06] MEDS: Spironolactone 50 MG Tablet PO SCH (08:51)
--- NOTE | 2018-04-06 13:10 | P.DS ---
Date of admission: 04/02/18 14:52 Primary care physician: [facility] Attending physician on discharge: Stanley Griffiths Anticipated date of discharge: 04/06/18 Brief History from admission: Patient is a 52-year-old male with past medical history of HTN, ETOH sober for 5 years, cirrhosis of the liver, obstructive jaundice who came into the hospital for complaints of dark, black stools 3 today. Complains of abdominal pain, diffuse, 8/10, does not know what aggravates or relieves the symptom. States that he just got out of the hospital for the same complaints of abdominal pain. Patient states that he was just seeing a new PCP at [facility] and was told that he needs a liver transplant. Denies any nausea, vomiting, fevers, chills. Denies hematemesis, hematuria. Reports poor appetite , shortness of breath and dyspnea occasionally especially with activities. Reports abdomen increasing in size. Denies chest pain, palpitations. Vital signs reviewed 96, 20, 152/103, 99% on room air. Labs reviewed H&H does not show significant anemia, 13.6/38.7, PT 13.4, INR 1.3 LFTs T bili 3.4, AST 269, ALT 98, alk phos 467 -compared to previous visit this is significantly improved Review of previous CT, 03/02/18 CT of the abdomen and pelvis 1. Cirrhotic appearing liver without significant change. The spleen is at the upper limits of normal. 2. Small to moderate amount of ascitic fluid. There is mildly increased from the prior study. 3. Small noncalcified pulmonary nodules. No further evaluation is required according to the Fleischner Society guidelines. 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: Acute (6) Portal hypertension Status: Acute (7) Obstructive jaundice Status: Acute DS: Medications - Discharge Medications Prescriptions: amlodipine 10 mg PO DAILY #60 tab furosemide [Lasix] 20 mg PO DAILY #30 tab oxycodone 5 mg PO Q4-6H PRN #15 cap PRN Reason: Acute Pain pantoprazole 40 mg PO DAILY #30 tab propranolol 20 mg PO BID #60 tab rivaroxaban [Xarelto] 20 mg PO DAILY #30 tab spironolactone 50 mg PO DAILY #30 tab DS: Summary Hospital Course: Patient is a 52-year-old male with past medical history of HTN, ETOH sober for 5 years, cirrhosis of the liver, obstructive jaundice who came into the hospital for complaints of dark, black stools 3 today. Patient was worked up for Acute GI Bleed. Given Sandostatin drip an Protonix drip given. S/p EGD 03/31 shows esophageal varices, mild to moderate portal gastropathy, duodenitis. He was switched to PO pantoprazole. H & H Stable. Patient has Liver cirrhosis, transaminitis, Ascites, Hepatitis C. LFTs T bili 3.4, AST 269, ALT 98, alk phos 467 -compared to previous visit this is significantly improved. Review of previous CT, 03/02/18 CT of the abdomen and pelvis showed Cirrhotic liver, Small to moderate amount of ascites. Previous results reviewed01/25/18 AFP 168.6, CA 19-9 antigen 211.2. 01/24/18 HCV RNA [id number], genotype 1A - GI appointment for outpatient treatment. Liver U/ S 03/30 showed hepatomegaly; portal venous thrombosis with cavernous transformation; 4 cm hypoechoic smooth margin mass in or near the head of the pancreas; marked amount of ascites. he continued to received Lasix, spironolactone. He has liver mass with elevated AFP 631. Abdominal MRI showed markedly heterogeneous liver appearance with extensive replacement of the normal hepatic parenchyma with nodules, most of which are likely regenerative, however an enlarging nodule in the left lobe is particularly worrisome for hepatocellular carcinoma. Biopsy under CT guidance recommended. Paracentesis and biopsy done 04/05/17. Xarelto was held and will restart. Pancreatic Mass, initially seen on liver U/S, 4cm hypoechoic smooth margin mass in or near the head of the pancreas, however, abdomen MRI shows pancreas is unremarkable, no mass. He has Portal Vein Thrombosis, on Xarelto, held for his procedure and will restart. He continued his BP meds. Post biopsy with no acute complications. [employer] Prescription Drug Monitoring Database has been queried and verified prior to prescribing the controlled substance. Patient has met maximal benefits of hospitalization. Clinically stable for discharge. - Time Spent with Patient Total time spent providing and/or coordinating discharge services: Less than 30 minutes - Quality: VTE Deep Vein Thrombosis/Pulmonary Embolism Present on Admission: No Exam Vital signs: Vital Signs 04/05/18 14:25 04/05/18 14:30 04/05/18 14:45 Temperature 98.3 F Pulse Rate 71 74 74 Respiratory Rate 18 18 18 Blood Pressure 104/70 112/66 106/70 Pulse Oximetry 94 L 96 96 04/05/18 15:00 04/05/18 16:00 04/05/18 18:13 Temperature 97.9 F 98.0 F Pulse Rate 73 78 Respiratory Rate 18 18 15 Blood Pressure 111/72 112/73 95/59 L Pulse Oximetry 96 96 95 04/05/18 18:16 04/05/18 20:00 04/06/18 00:00 Temperature 98.2 F 98.5 F Pulse Rate 90 83 Respiratory Rate 18 18 Blood Pressure 135/67 119/71 121/72 Pulse Oximetry 96 95 04/06/18 04:00 04/06/18 08:00 Temperature 98.1 F 98.6 F Pulse Rate 82 72 Respiratory Rate 17 17 Blood Pressure 115/22 L 116/73 Pulse Oximetry 96 96 Intake & Output 04/05/18 04/06/18 04/06/18 18:59 06:59 18:59 Intake Total 500 / 500 Balance 500 / 500 Intake: Oral 500 / 500 Other: # Voids 7 Date of Last Bowel Movement 04/04/18 # Bowel Movements 1 Narrative: GENERAL: Well-nourished, well-developed middle-aged male patient in [facility]. SKIN: Warm and dry. No rash. HEENT: Normocephalic. Atraumatic. Pupils equal and round. +mild scleral icterus. Mucous membranes pink and moist. CARDIOVASCULAR: Regular rate and rhythm. No murmur appreciated. RESPIRATORY: No accessory muscle use. Clear to auscultation. Breath sounds equal bilaterally. GASTROINTESTINAL: Abdomen soft, mildly distended with + fluid wave consistent with mild ascites; mild diffuse lower abdominal TTP; overall much improved. Normoactive bowel sounds x4. Palpable hepatomegaly. MUSCULOSKELETAL: No obvious deformities. Extremities without clubbing, cyanosis , or edema. NEUROLOGICAL: Awake and alert. No obvious cranial nerve deficits. Motor grossly within normal limits. Moving all extremities spontaneously. Normal speech. Results Procedures completed during hospitalization: 03/31/18 EGD showed: One column of grade 1 esophageal varices Mild to moderate portal gastropathy Duodenitis 04/04/18 CT-guided liver biopsy Completed studies during hospitalization: Pending at discharge 03/31/18 07:23 Surgical [PTH] Routine - Impressions ITS Impressions Liver Ultrasound 03/30/18 18:33 CONCLUSION: 1. Hepatomegaly 2. Portal venous thrombosis with cavernous transformation. 3. 4 cm hypoechoic smooth margin mass in or near the head of the pancreas. 4. Marked amount of ascites. Abdomen MRI 04/01/18 00:00 CONCLUSION: Markedly heterogeneous liver appearance with extensive replacement of the normal hepatic parenchyma with nodules, most of which are likely regenerative, however an enlarging nodule in the left lobe is particularly worrisome for hepatocellular carcinoma. Biopsy under CT guidance would appear feasible if clinically indicated. Liver Biopsy CT 04/05/18 00:00 CONCLUSION: 1. Uncomplicated CT guided biopsy. Discharge Plan - Discharge Disposition Patient Disposition: Discharge Home - Discharge Condition Condition: Stable - Discharge Order Discharge Orders: Discharge Order (Routine); Ordered 04/06/18 Ordered By: Xochilt Galeas - Physicians Team Primary Care Provider: Nanette Thurston, Attending Provider: Stanley Griffiths Other Providers: Abrahan Muñiz MD
--- NOTE | 2018-04-06 14:39 | P.PNGI ---
Subjective Interval history: Pt seen at 1330. RN at bedside removing IVs for discharge. Pt reports he has follow up appt with GI on Apr 13 in [place]. He reports some continued abdominal distention. Denies nausea, vomiting, abdominal pain. Tolerating PO. Physical Exam Vital signs: Vital Signs 04/05/18 14:25 04/05/18 14:30 04/05/18 14:45 Temperature 98.3 F Pulse Rate 71 74 74 Respiratory Rate 18 18 18 Blood Pressure 104/70 112/66 106/70 Pulse Oximetry 94 L 96 96 04/05/18 15:00 04/05/18 16:00 04/05/18 18:13 Temperature 97.9 F 98.0 F Pulse Rate 73 78 Respiratory Rate 18 18 15 Blood Pressure 111/72 112/73 95/59 L Pulse Oximetry 96 96 95 04/05/18 18:16 04/05/18 20:00 04/06/18 00:00 Temperature 98.2 F 98.5 F Pulse Rate 90 83 Respiratory Rate 18 18 Blood Pressure 135/67 119/71 121/72 Pulse Oximetry 96 95 04/06/18 04:00 04/06/18 08:00 04/06/18 12:00 Temperature 98.1 F 98.6 F 98.7 F Pulse Rate 82 72 78 Respiratory Rate 17 17 17 Blood Pressure 115/22 L 116/73 109/77 Pulse Oximetry 96 96 96 Intake & Output 04/05/18 04/06/18 04/06/18 18:59 06:59 18:59 Intake Total 500 / 500 Balance 500 / 500 Intake: Oral 500 / 500 Other: # Voids 7 Date of Last Bowel Movement 04/04/18 # Bowel Movements 1 - Constitutional no acute distress - Routine HEENT Exam Head: Present: normocephalic, atraumatic Eye: Present: conjunctival icterus - Routine Respiratory Exam Absent: accessory muscle use - Routine Abdominal Exam Present: soft, normoactive bowel sounds, distended. Absent: tenderness - Routine Skin Exam Present: dry, warm, jaundice - Routine Neurological Exam Present: alert, oriented X3 Results - Labs CBC & Chem 7: 04/05/18 04:20 04/01/18 06:41 - Imaging Impressions Liver Biopsy CT 04/05/18 00:00 CONCLUSION: 1. Uncomplicated CT guided biopsy. - Procedures 03/31/18 EGD showed: One column of grade 1 esophageal varices Mild to moderate portal gastropathy Duodenitis 04/04/18 CT-guided liver biopsy Assessment and Plan - Plan Assessment: - Cirrhosis with history of ETOH abuse and hepatitis C (genotype 1 a) quant 266, 000 Liver US (03/30) Hepatomegaly. Portal venous thrombosis with cavernous transformation. 4 cm hypoechoic smooth margin mass in or near the head of the pancreas. Marked amount of ascites. MRI abdomen (04/01) Markedly heterogeneous liver appearance with extensive replacement of the normal hepatic parenchyma with nodules, most of which are likely regenerative, however an enlarging nodule in the left lobe is particularly worrisome for hepatocellular carcinoma. S/P liver biopsy yesterday, results pending. [id number] - Melena on admission- H/H stable since EGD, no further reports of melena as of 04/06 EGD (03/31) One column of grade 1 esophageal varices. Mild to moderate portal gastropathy. Duodenitis. Biopsy (duodenum) duodenal mucosa with peptic duodenitis (gastric antrum) antral mucosa with mild active chronic gastritis. Plan: Pt being discharged today Liver biopsy pending Protonix Avoid ETOH Follow up scheduled in office on Apr 13 Pt has been seen and examined by myself and Dr. Edgar and this note is written on his behalf
== END 2018-04-06 15:00 | disposition home or self-care (01) ==
LOC: NEDA 15:15 → NEPE 15:15 → NEDH 03-31 01:04 → NEPHCDU 03-31 12:47 → NEDA 03-31 23:53 → NEPHCDU 03-31 23:54 → H7ONC 04-05 18:26
PROVIDERS: ADMIT Hospitalist; ATTEND Hospitalist

== ENCOUNTER 2018-05-03 15:41 | Inpatient (IN) ==
[2018-05-03] MEDS ORDERED: Morphine Inj 4 MG/ML Vial IV.PUSH ONE ×2 (17:12→19:52)
--- NOTE | 2018-05-03 17:38 | XR ---
EXAM DATE: 05/03/2018 4:55 PM EDT AGE/SEX: 52 years / Male INDICATIONS: Short of breath. CLINICAL DATA: This is the patient's initial encounter. Patient reports that signs and symptoms have been present for 1 day and indicates a pain score of 5/10. MEDICAL/SURGICAL HISTORY: None. None. COMPARISON: No prior exams available for comparison. FINDINGS: Lungs are hypoaerated but clear. There is no evidence of acute airspace disease or congestion. Heart and mediastinal structures are unremarkable. CONCLUSION: No evidence of acute cardiopulmonary process. Electronically signed by: Jg Mendoza MD 05/03/2018 5:36 PM EDT
[2018-05-03 17:40] LABS: Baso # (Auto) 0.1 th/mm3 (0.0-0.2); Baso % (Auto) 0.7 % (0.0-2.0); Eos # (Auto) 0.1 th/mm3 (0.0-0.4); Eos % (Auto) 0.7 % (0.0-4.0); Hematocrit 41.3 % (39.0-51.0); Hemoglobin 13.8 gm/dL (13.0-17.0); Lymph # (Auto) 1.5 th/mm3 (1.0-4.8); Lymph % (Auto) 14.6 % (9.0-44.0); Mean Corpuscular HGB Conc 33.5 % (32.0-36.0); Mean Corpuscular Hemoglobin 32.8 pg (27.0-34.0); Mean Corpuscular Volume 97.9 fL (80.0-100.0); Mean Platelet Volume 8.3 fL (7.0-11.0); Mono # (Auto) 0.7 th/mm3 (0.0-0.9); Neut # (Auto) 7.9 th/mm3 (1.8-7.7); Platelet Count 375 th/mm3 (150-450); Red Blood Count 4.22 mil/mm3 (4.50-5.90); Red Cell Distribution Width 14.7 % (11.6-17.2); White Blood Count 10.2 th/mm3 (4.0-11.0)
[2018-05-03 17:42] LABS: Activated Partial Thrombo Time 28.6 sec (24.3-30.1); INR 1.4 Ratio; Prothrombin Time 14.4 sec (9.8-11.6)
[2018-05-03 17:48] LABS: Anion Gap 8 meq/L (5-15); Aspartate Aminotransferase 212 U/L (15-37); Blood Urea Nitrogen 16 mg/dL (7-18); Calcium 8.6 mg/dL (8.5-10.1); Carbon Dioxide 23.8 meq/L (21.0-32.0); Chloride 96 meq/L (98-107); Glomerular Filtration Rate Greater Than 89 mL/min (>89); Glucose,Random 138 mg/dL (74-106); Lipase 351 U/L (73-393); Potassium 4.8 meq/L (3.5-5.1); Sodium 128 meq/L (136-145)
[2018-05-03 17:50] LABS: Alanine Aminotransferase 56 U/L (12-78); Alkaline Phosphatase 662 U/L (45-117); Total Protein 8.9 g/dL (6.4-8.2)
--- NOTE | 2018-05-03 18:18 | ED ---
HPI General Chief Complaint: Abdominal Pain Stated Complaint: extended abdomen Time Seen by Provider: 05/03/18 16:48 History of Present Illness HPI narrative: This is a 52-year-old male with a history of liver cancer, portal vein thrombosis, ascites, who presents today with worsening ascites and abdominal discomfort. The patient reports his abdomen has swollen to the point now where he is having difficulty breathing because of the pressure pushing up on his abdomen. He denies any fevers, chills. He is currently not to this point had a paracentesis either diagnostic or therapeutic. He denies any blood in his stool or denies any hematemesis. He does report that he was on Xarelto for his portal vein thrombosis however anticipated he would likely need to have a paracentesis and stopped it 6 days ago. There are no other complaints at the time of my examination. Related Data Previous Rx's Medication Instructions Recorded furosemide [Lasix] 20 mg PO DAILY #30 tab 04/05/18 propranolol 20 mg PO BID #60 tab 04/05/18 rivaroxaban [Xarelto] 20 mg PO DAILY #30 tab 04/05/18 spironolactone 50 mg PO DAILY #30 tab 04/05/18 Allergies Allergy/AdvReac Type Severity Reaction Status Date / Time No Known Allergies AdvReac Unknown Uncoded 01/23/18 10:43 Review of Systems ROS: all other systems reviewed are negative Constitutional Denies chills, Denies fever(s) and Reports weight gain Eyes Reports system reviewed and no additional complaints, except as docu ENT Reports system reviewed and no additional complaints, except as docu Cardiovascular Denies chest pain, Denies chest pain at rest, Reports dyspnea and Reports orthopnea Respiratory Denies chest congestion, Denies cough and Reports dyspnea Gastrointestinal Reports abdominal pain, Reports nausea and Reports vomiting Genitourinary Denies dysuria and Denies flank pain Musculoskeletal Reports back pain, Denies numbness and Denies tingling Neurologic Reports system reviewed and no additional complaints, except as docu, Denies dizziness and Denies headache(s) Endocrine Reports system reviewed and no additional complaints, except as docu [facility] Medical History Medical History Hepatitis C antibody positive in blood (Acute) 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 (Acute) Portal hypertension (Acute) Obstructive jaundice (Acute) Elevated liver enzymes (Acute) Portal vein thrombosis (Acute) Cirrhosis (Acute) Surgical History Surgical History History of hernia surgery (Acute) Family History Family History Other Unknown family medical history Social History Social History Substance History: Past History Second Hand Smoke Exposure: Yes Smoking Status: Current every day smoker Tobacco Type: Cigarettes How Often Do You Have a Drink Containing Alcohol: 4 or more times a week Hx Recent Travel: No Recent Travel in [facility] within the Last 8 Weeks: No Recent Out of Country Travel within the Last 8 Weeks: No Substance Abuse Detail Alcohol: Substance Use Status: Active Route Used Substance Abuse: By Mouth Reason for Use: Feels Good Immunization History Tetanus Immunization: Unsure Hx Influenza Vaccine This Season: No Exam Narrative Exam Narrative: GENERAL: Well-developed well-nourished male in no acute respiratory distress. SKIN: Focused skin assessment warm/dry. HEAD: Atraumatic. Normocephalic. EYES: Positive scleral icterus. No injection or drainage. ENT: No nasal bleeding or discharge. Mucous membranes pink and moist. NECK: Trachea midline. No JVD. Supple. CARDIOVASCULAR: Regular rate and rhythm. No murmur appreciated. RESPIRATORY: No accessory muscle use. Clear to auscultation. Breath sounds equal bilaterally. GASTROINTESTINAL: Abdomen soft, distended. Tense ascites noted. positive fluid wave. Abdominal striae a noted. MUSCULOSKELETAL: No obvious deformities. No clubbing. No cyanosis. No edema. NEUROLOGICAL: Awake and alert. No obvious cranial nerve deficits. Motor grossly within normal limits. Normal speech. Course Initial Documented Vital Signs Temperature 97.4 F L 05/03/18 15:45 Pulse Rate 92 H 05/03/18 15:45 Respiratory Rate 16 05/03/18 15:45 Blood Pressure 133/92 H 05/03/18 15:45 Pulse Oximetry 97 05/03/18 15:45 Last Documented Vital Signs Temperature 97.4 F L 05/03/18 15:45 Pulse Rate 89 05/03/18 17:00 Respiratory Rate 18 05/03/18 17:00 Blood Pressure 150/84 H 05/03/18 17:00 Pulse Oximetry 96 05/03/18 17:20 Medical Decision Making MDM Narrative Medical decision making narrative: 52-year-old male with a history of liver cancer, presents today with complaints of abdominal swelling and difficulty sleeping and shortness of breath. Patient has tense ascites. He has had no previous paracentesis. He is not febrile. He has no peritonitis on exam. He will be admitted to the hospital for a paracentesis tomorrow. He was on Xarelto however stopped 6 days ago. Case was discussed with Dr. Muñ[facility] Medical Screen Exam Complete: Yes Emergency Medical Condition: Yes Differential Diagnosis Differential Diagnosis: Symptomatic tense ascites versus metabolic derangement versus anemia Lab Data Result diagrams: 05/03/18 17:05 05/03/18 17:05 Lab Results 05/03/18 05/03/18 05/03/18 Range/Units 17:05 17:05 17:05 WBC 10.2 (4.0-11.0) th/mm3 RBC 4.22 L (4.50-5.90) mil/mm3 Hgb 13.8 (13.0-17.0) gm/dL Hct 41.3 (39.0-51.0) % MCV 97.9 (80.0-100.0) fL MCH 32.8 (27.0-34.0) pg MCHC 33.5 (32.0-36.0) % RDW 14.7 (11.6-17.2) % Plt Count 375 D (150-450) th/mm3 MPV 8.3 (7.0-11.0) fL Neut % (Auto) 77.0 H (16.0-70.0) % Lymph % (Auto) 14.6 (9.0-44.0) % Camp % (Auto) 7.0 (0.0-8.0) % Eos % (Auto) 0.7 (0.0-4.0) % Baso % (Auto) 0.7 (0.0-2.0) % Neut # (Auto) 7.9 H (1.8-7.7) th/mm3 Lymph # (Auto) 1.5 (1.0-4.8) th/mm3 Camp # (Auto) 0.7 (0.0-0.9) th/mm3 Eos # (Auto) 0.1 (0.0-0.4) th/mm3 Baso # (Auto) 0.1 (0.0-0.2) th/mm3 WBC Differential . Differential Comment Auto diff final PT 14.4 H (9.8-11.6) sec INR 1.4 Ratio APTT 28.6 (24.3-30.1) sec Sodium 128 L (136-145) meq/L Potassium 4.8 (3.5-5.1) meq/L Chloride 96 L (98-107) meq/L Carbon Dioxide 23.8 (21.0-32.0) meq/L Anion Gap 8 (5-15) meq/L BUN 16 (7-18) mg/dL Creatinine 0.80 (0.60-1.30) mg/dL Estimated GFR Greater than 89 (>89) mL/min Random Glucose 138 H (74-106) mg/dL Calcium 8.6 (8.5-10.1) mg/dL Total Bilirubin 3.6 H (0.2-1.0) mg/dL AST 212 H (15-37) U/L ALT 56 (12-78) U/L Alkaline Phosphatase 662 H (45-117) U/L Ammonia (11-32) mcmol/L Total Protein 8.9 H (6.4-8.2) g/dL Albumin 2.0 L (3.4-5.0) g/dL Lipase 351 (73-393) U/L 05/03/18 Range/Units 17:05 WBC (4.0-11.0) th/mm3 RBC (4.50-5.90) mil/mm3 Hgb (13.0-17.0) gm/dL Hct (39.0-51.0) % MCV (80.0-100.0) fL MCH (27.0-34.0) pg MCHC (32.0-36.0) % RDW (11.6-17.2) % Plt Count (150-450) th/mm3 MPV (7.0-11.0) fL Neut % (Auto) (16.0-70.0) % Lymph % (Auto) (9.0-44.0) % Camp % (Auto) (0.0-8.0) % Eos % (Auto) (0.0-4.0) % Baso % (Auto) (0.0-2.0) % Neut # (Auto) (1.8-7.7) th/mm3 Lymph # (Auto) (1.0-4.8) th/mm3 Camp # (Auto) (0.0-0.9) th/mm3 Eos # (Auto) (0.0-0.4) th/mm3 Baso # (Auto) (0.0-0.2) th/mm3 WBC Differential Differential Comment PT (9.8-11.6) sec INR Ratio APTT (24.3-30.1) sec Sodium (136-145) meq/L Potassium (3.5-5.1) meq/L Chloride (98-107) meq/L Carbon Dioxide (21.0-32.0) meq/L Anion Gap (5-15) meq/L BUN (7-18) mg/dL Creatinine (0.60-1.30) mg/dL Estimated GFR (>89) mL/min Random Glucose (74-106) mg/dL Calcium (8.5-10.1) mg/dL Total Bilirubin (0.2-1.0) mg/dL AST (15-37) U/L ALT (12-78) U/L Alkaline Phosphatase (45-117) U/L Ammonia 91 H (11-32) mcmol/L Total Protein (6.4-8.2) g/dL Albumin (3.4-5.0) g/dL Lipase (73-393) U/L Imaging Data Radiologist's impression: Chest X-Ray 05/03/18 16:55 CONCLUSION: No evidence of acute cardiopulmonary process. Discharge Plan Discharge Disposition Patient Disposition: 30 Still Patient Discharge Details Diagnosis: Ascites of liver, Abdominal pain, Portal vein thrombosis, Elevated liver enzymes, Obstructive jaundice Physicians Team ED Provider: iNko Cortes Rxs /Orders / Referrals /Forms Prescriptions: No Action furosemide [Lasix] 20 mg tablet 20 mg PO DAILY Qty: 30 RF: 0 propranolol 20 mg tablet 20 mg PO BID Qty: 60 RF: 0 spironolactone 50 mg tablet 50 mg PO DAILY Qty: 30 RF: 0 rivaroxaban [Xarelto] 20 mg Tablet 20 mg PO DAILY Qty: 30 RF: 0 Discharge Interventions Interventions: Vital Signs Last Done: 05/03/18 17:00 Status ED Status: With Doctor
--- NOTE | 2018-05-03 22:31 | ECG ---
Date Performed: 05/03/2018 Time Performed: 17:10:31 PTAGE: 52 years EKG: Sinus rhythm LOW QRS VOLTAGE IN PRECORDIAL LEADS LEFT ANTERIOR FASCICULAR BLOCK POSSIBLE ANTERIOR MYOCARDIAL INFA RCTION ABNORMAL ECG PREVIOUS TRACING : 12/24/2011 10.11 Since the previous tracing, no significant change noted DOCTOR: Angelique Geller Interpretating Date/Time 05/03/2018 22:30:37
--- NOTE | 2018-05-03 23:00 | P.HPIM ---
History of Present Illness Primary Care Physician: Nanette Thurston History of Present Illness: 52-year-old male with a history of end-stage liver disease, esophageal varices, hepatocellular carcinoma,Portal vein thrombosis on Xarelto who presents with a two-week history of progressively worsening sharp whole abdomen abdominal pain. He says he stopped his Xarelto 5 days ago because he knows he needs a paracentesis. He denies ever having a paracentesis previously. He is on Lasix and spironolactone and says he continues to take these medications. Inpatient Certification: I certify that the inpatient services were ordered in accordance with Medicare regulations governing the order. This includes certification that hospital inpatient services are reasonable and necessary and in the case of services not specified as inpatient-only under 42 CFR 419.22(n), that they are appropriately provided as inpatient services in accordance to with the 2-midnight benchmark under 43 CFR 412.3(e) Estimated Total Length of Stay (Days): 2 Plans for Post Hospital Care: Not yet determined Review of Systems All other systems reviewed negative except as stated in [facility] History History Provided By: Patient - Medical History Medical History: Medical History (Last Updated 05/03/18 @ 21:40 by Gail Ruby RN) Hepatitis C antibody positive in blood (Acute) Hx of [facility]p use of blood thinners (Acute) Portal hypertension (Acute) Obstructive jaundice (Acute) Elevated liver enzymes (Acute) Portal vein thrombosis (Acute) Cirrhosis (Acute) Liver cancer - Surgical History Surgical History: Surgical History (Last Updated 03/30/18 @ 17:38 by Meredith Pandya) History of hernia surgery (Acute) - Family History Family History: Family History (Last Updated 03/30/18 @ 18:40 by FABRICE Ruff) Other Unknown family medical history - Tobacco History Second Hand Smoke Exposure: No Tobacco Use In Past 30 Days: Yes Smoking Status: Current some day smoker Tobacco Type: Cigarettes - Alcohol History How Often Do You Have a Drink Containing Alcohol: Never - Substance Use History Substance History: Active Abuse - Substance Use Type Alcohol Status: Sustained Remission Route Used: By Mouth Reason for Use: Feels Good Comment: 5 years sober Marijuana Status: Active Frequency: PRN Comment: helps with pain - Travel History History of Recent Travel: No Recent Travel in the [place] Within the Last 8 Weeks: No Recent Travel Out of the Country Within the Last 8 Weeks: No - Immunization History Tetanus Immunization: Unsure Hx Influenza Vaccine This Season: No Medications and Allergies Active Medications: Active Medications Sodium Chloride (Ns Flush) 2 ml IV.FLUSH PRN PRN PRN Reason: FLUSH AFTER USING IV ACCESS Allergies Allergy/AdvReac Type Severity Reaction Status Date / Time No Known Allergies AdvReac Unknown Uncoded 01/23/18 10:43 Exam Vital signs: Vital Signs 05/03/18 15:45 05/03/18 17:00 05/03/18 17:20 Temperature 97.4 F L Pulse Rate 92 H 89 Respiratory Rate 16 18 Blood Pressure 133/92 H 150/84 H Pulse Oximetry 97 96 96 05/03/18 19:46 05/03/18 21:38 Temperature 97.5 F L Pulse Rate 82 82 Respiratory Rate 28 H 17 Blood Pressure 112/82 131/93 H Pulse Oximetry 94 L 96 Intake & Output 05/03/18 05/03/18 05/04/18 06:59 18:59 06:59 Weight 81.647 kg Narrative: GENERAL: Patient sitting up in bed. Appears uncomfortable. Alert and oriented 3. SKIN: Warm and dry. HEAD: Atraumatic. Normocephalic. EYES: Pupils equal and round. Positive scleral icterus. No injection or drainage. ENT: No nasal bleeding or discharge. Mucous membranes pink and moist. NECK: Trachea midline. No JVD. CARDIOVASCULAR: Regular rate and rhythm. RESPIRATORY: No accessory muscle use. Clear to auscultation. Breath sounds equal bilaterally. GASTROINTESTINAL: Abdomen distended, marked ascites.. Hepatic and splenic margins not palpable. MUSCULOSKELETAL: Extremities without clubbing, cyanosis, or edema. No obvious deformities. NEUROLOGICAL: Awake and alert. No obvious cranial nerve deficits. Motor grossly within normal limits. Five out of 5 muscle strength in the arms and legs. Normal speech. PSYCHIATRIC: Appropriate mood and affect; insight and judgment normal. Results - Labs CBC & Chem 7: 05/03/18 17:05 05/03/18 17:05 Labs: Short CBC 05/03/18 Range/Units 17:05 WBC 10.2 (4.0-11.0) th/mm3 Hgb 13.8 (13.0-17.0) gm/dL Hct 41.3 (39.0-51.0) % Plt Count 375 D (150-450) th/mm3 BMP 05/03/18 17:05 Sodium 128 L Potassium 4.8 Chloride 96 L Carbon Dioxide 23.8 BUN 16 Creatinine 0.80 Calcium 8.6 Liver Function 05/03/18 Range/Units 17:05 Total Bilirubin 3.6 H (0.2-1.0) mg/dL AST 212 H (15-37) U/L ALT 56 (12-78) U/L Alkaline Phosphatase 662 H (45-117) U/L Albumin 2.0 L (3.4-5.0) g/dL - Imaging Impressions Chest X-Ray 05/03/18 16:55 CONCLUSION: No evidence of acute cardiopulmonary process. Caprini VTE Risk Assessment Caprini VTE Risk Assessment: Moderate/High Risk (score >= 2) Caprini Risk Assessment Model: Point Value = 1 Point Value = 2 Point Value = 3 Point Value = 5 Age 41-60 Minor surgery BMI > 25 kg/m2 Swollen legs Varicose veins or History of unexplained or recurrent spontaneous Oral contraceptives or hormone replacement Sepsis (< 1 month) Serious lung disease, including pneumonia (< 1 month) Abnormal pulmonary function Acute myocardial infarction Congestive heart failure (< 1 month) History of inflammatory bowel disease Medical patient at bed rest Age 61-74 Arthroscopic surgery Major open surgery (> 45 min) Laparoscopic surgery (> 45 min) Malignancy Confined to bed (> 72 hours) Immobilizing plaster cast Central venous access Age >= 75 History of VTE Family history of VTE Factor V Leiden Prothrombin [id number] Lupus anticoagulant Anticardiolipin antibodies Elevated serum homocysteine Heparin-induced thrombocytopenia Other congenital or acquired thrombophilia Stroke (< 1 month) Elective arthroplasty Hip, pelvis, or leg fracture Acute spinal cord injury (< 1 month) Prophylaxis Regimen: Total Risk Factor Score Risk Level Prophylaxis Regimen 0-1 Low Early ambulation 2 Moderate Order ONE of the following: *Sequential Compression Device (SCD) *Heparin 5000 units SQ BID 3-4 Higher Order ONE of the following medications: *Heparin 5000 units SQ TID *Enoxaparin/Lovenox 40 mg SQ daily (WT < 150 kg, CrCl > 30 mL/min) *Enoxaparin/Lovenox 30 mg SQ daily (WT < 150 kg, CrCl > 10-29 mL/min) *Enoxaparin/Lovenox 30 mg SQ BID (WT < 150 kg, CrCl > 30 mL/min) AND/OR *Sequential Compression Device (SCD) 5 or more Highest Order ONE of the following medications: *Heparin 5000 units SQ TID (Preferred with Epidurals) *Enoxaparin/Lovenox 40 mg SQ daily (WT < 150 kg, CrCl > 30 mL/min) *Enoxaparin/Lovenox 30 mg SQ daily (WT < 150 kg, CrCl > 10-29 mL/min) *Enoxaparin/Lovenox 30 mg SQ BID (WT < 150 kg, CrCl > 30 mL/min) AND *Sequential Compression Device (SCD) Assessment and Plan - Plan ////Worsening abdominal ascites //End-stage liver disease //Hepatitis C //Hepatocellular carcinoma //History of esophageal varices -Low suspicion for SBP, however patient will be tapped in the morning with cultures, cell count = ESLD meds. Diuresed with IV Lasix. Fluid restrictions. Continue to monitor. Consult glass bead maker for worsening end-stage liver disease //Hypernatremia. Sodium 128. Likely secondary to liver disease. Will place on fluid restrictions. //Hyperammonemia Ammonia level elevated in the 90s. Patient does not appear to be altered. We will start on lactulose. Discussed Condition With: Patient, nurse, Dr. Muñoz H&P: Quality - VTE Deep Vein Thrombosis/Pulmonary Embolism Present on Admission: No
[2018-05-03] MEDS ORDERED: Naloxone Inj 0.4 MG/ML Vial IV.PUSH PRN (23:01)
[2018-05-04 00:11] LABS: Bilirubin,Urine Negative (Negative); Clarity,Urine Hazy (Clear); Color,Urine Amber (Yellw/Straw); Glucose,Urine (UA) Negative (Negative); Hyaline Casts,Urine 41 /lpf (0-3); Leukocyte Esterase,Urine Negative (Negative); Mucus,Urine Few /lpf (Occasional); Nitrite,Urine Negative (Negative); Specific Gravity,Urine 1.018 (1.002-1.035); Squamous Epithelial Cell,Urine <1 /hpf (0-5); Urobilinogen,Urine 4 or Greater mg/dL (Less than 2)
[2018-05-04] MEDS ORDERED: Albumin Human 25% Inj 200 ML IV.SIG ONE (10:15)
[2018-05-04] MEDS: Furosemide 20 MG Tablet PO SCH (10:50)
[2018-05-04] MEDS: Spironolactone 50 MG Tablet PO SCH (10:51)
[2018-05-04 10:53] LABS: RBC,Peritoneal Fluid 285 /mm3 (0-0)
[2018-05-04 11:04] LABS: Neutrophils,Peritoneal Fluid 18 %
--- NOTE | 2018-05-04 12:22 | P.CONGI ---
History of Present Illness Consult date: 05/04/18 Chief complaint: Tense Ascites, Liver CA, Elev LE, Portal Vein Thrm History of Present Illness: This is a 52 yo M with recent diagnosis of cirrhosis and liver biopsy consistent with cholangiocarcinoma. Pt was seen by our service in March, complaining of black stools at that time, underwent EGD which revealed One column of grade 1 esophageal varices, mild to moderate portal gastropathy, duodenitis. Pt was started on Spironolactone, Lasix, Inderal and Lactulose which he reports compliance with. Pt presented to the ER yesterday with complaints of abdominal distention that has been progressively worsening and had reached the point where he felt he was no longer able to take a deep breath. Denies previous paracentesis. Denies nausea, vomiting, abdominal pain. States BMs have been normal, denies hematochezia and melena. Pt was seen after paracentesis, currently denies any symptoms, appears comfortable. He has not been seen by oncologist, has been having issues with follow up because of insurance, is waiting on approval for Medicaid which he anticipates will happen this week. Previous work up revealed pt to have Hepatitis C, he denies previous treatment for this. Denies history of IVDU, tattoos, previous blood transfusions. Does report history of unprotected sex when he was younger. Denies ETOH in 5 years. Does report smoking marijuana to help him with pain control. 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) Portal hypertension (Acute) Obstructive jaundice (Acute) Elevated liver enzymes (Acute) Portal vein thrombosis (Acute) Cirrhosis (Acute) Liver cancer - Surgical History Surgical History: Surgical History (Last Updated 03/30/18 @ 17:38 by Meredith Pandya) History of hernia surgery (Acute) - Family History Family History: Family History (Last Updated 03/30/18 @ 18:40 by FABRICE Ruff) Other Unknown family medical history - Tobacco History Second Hand Smoke Exposure: No Tobacco Use In Past 30 Days: Yes Smoking Status: Current some day smoker Tobacco Type: Cigarettes - Alcohol History How Often Do You Have a Drink Containing Alcohol: Never - Substance Use History Substance History: Active Abuse - Substance Use Type Alcohol Status: Sustained Remission Route Used: By Mouth Reason for Use: Feels Good Comment: 5 years sober Marijuana Status: Active Frequency: PRN Comment: helps with pain - Travel History History of Recent Travel: No Recent Travel in the [place] Within the Last 8 Weeks: No Recent Travel Out of the Country Within the Last 8 Weeks: No - Immunization History Tetanus Immunization: Unsure Hx Influenza Vaccine This Season: No <Annamarie Mattson - Last Filed: 05/04/18 12:09> - Medical History Medical History: Medical History (Last Updated 05/03/18 @ 21:40 by Gail Ruby RN) Hepatitis C antibody positive in blood (Acute) Hx of half-way use of blood thinners (Acute) Portal hypertension (Acute) Obstructive jaundice (Acute) Elevated liver enzymes (Acute) Portal vein thrombosis (Acute) Cirrhosis (Acute) Liver cancer - Surgical History Surgical History: Surgical History (Last Updated 03/30/18 @ 17:38 by Meredith Pandya) History of hernia surgery (Acute) - Family History Family History: Family History (Last Updated 03/30/18 @ 18:40 by FABRICE Ruff) Other Unknown family medical history <Kristen Edgar - Last Filed: 05/04/18 15:59> Medications and Allergies Active Medications: Active Medications Furosemide (Lasix) 20 mg PO DAILY [facility] Last Admin: 05/04/18 10:50 Dose: 20 mg Albumin Human (Flexbumin 25% Inj) 200 mls @ 60 mls/hr IV.SIG ONCE ONE; Protocol Stop: 05/04/18 13:34 Last Admin: 05/04/18 11:48 Dose: 60 mls/hr Lactulose (Lactulose Liq) 30 ml PO BID [place] Last Admin: 05/04/18 10:51 Dose: 30 ml Miscellaneous (Pill Splitter) 1 each OTHER UNSCH PRN PRN Reason: PILL SPIT Naloxone HCl (Narcan Inj) 0.4 mg IV.PUSH UNSCH PRN PRN Reason: SEE LABEL COMMENTS Oxycodone HCl (Roxicodone) 5 mg PO Q4H PRN PRN Reason: PAIN SCALE 3 TO 5 Oxycodone HCl (Roxicodone) 7.5 mg PO Q4H PRN PRN Reason: PAIN SCALE 6 TO 10 Last Admin: 05/04/18 12:03 Dose: 7.5 mg Propranolol HCl (Inderal) 20 mg PO BID [facility] Last Admin: 05/04/18 10:50 Dose: 20 mg Sodium Chloride (Ns Flush) 2 ml IV.FLUSH PRN PRN PRN Reason: FLUSH AFTER USING IV ACCESS Spironolactone (Aldactone) 50 mg PO DAILY [facility] Last Admin: 05/04/18 10:51 Dose: 50 mg <Annamarie Mattson - Last Filed: 05/04/18 12:09> Active Medications: Active Medications Furosemide (Lasix) 20 mg PO DAILY [facility] Last Admin: 05/04/18 10:50 Dose: 20 mg Lactulose (Lactulose Liq) 30 ml PO BID [facility] Last Admin: 05/04/18 10:51 Dose: 30 ml Miscellaneous (Pill Splitter) 1 each OTHER UNSCH PRN PRN Reason: PILL SPIT Naloxone HCl (Narcan Inj) 0.4 mg IV.PUSH UNSCH PRN PRN Reason: SEE LABEL COMMENTS Oxycodone HCl (Roxicodone) 5 mg PO Q4H PRN PRN Reason: PAIN SCALE 3 TO 5 Oxycodone HCl (Roxicodone) 7.5 mg PO Q4H PRN PRN Reason: PAIN SCALE 6 TO 10 Last Admin: 05/04/18 12:03 Dose: 7.5 mg Propranolol HCl (Inderal) 20 mg PO BID [facility] Last Admin: 05/04/18 10:50 Dose: 20 mg Sodium Chloride (Ns Flush) 2 ml IV.FLUSH PRN PRN PRN Reason: FLUSH AFTER USING IV ACCESS Spironolactone (Aldactone) 50 mg PO DAILY [facility] Last Admin: 05/04/18 10:51 Dose: 50 mg <Kristen Edgar - Last Filed: 05/04/18 15:59> Allergies Allergy/AdvReac Type Severity Reaction Status Date / Time No Known Allergies AdvReac Unknown Uncoded 01/23/18 10:43 Exam Vital signs: Vital Signs 05/03/18 15:45 05/03/18 17:00 05/03/18 17:20 Temperature 97.4 F L Pulse Rate 92 H 89 Respiratory Rate 16 18 Blood Pressure 133/92 H 150/84 H Pulse Oximetry 97 96 96 05/03/18 19:46 05/03/18 21:38 05/04/18 00:00 Temperature 97.5 F L 97.6 F Pulse Rate 82 82 84 Respiratory Rate 28 H 17 16 Blood Pressure 112/82 131/93 H 120/80 Pulse Oximetry 94 L 96 96 05/04/18 08:00 05/04/18 08:33 05/04/18 09:42 Temperature 98.1 F 98.7 F 98.6 F Pulse Rate 79 86 90 Respiratory Rate 18 18 18 Blood Pressure 107/72 136/87 116/89 Pulse Oximetry 95 95 95 05/04/18 09:54 05/04/18 10:11 Temperature 98.6 F Pulse Rate 90 Respiratory Rate 18 Blood Pressure 133/94 H Pulse Oximetry 96 94 L Intake & Output 05/03/18 05/04/18 05/04/18 18:59 06:59 18:59 Output Total 380 / 380 Balance -380 / -380 Weight 81.647 kg 77.8 kg Output: Urine 380 / 380 Other: Date of Last Bowel Movement 05/02/18 - Constitutional no acute distress - Routine HEENT Exam Head: Present: normocephalic, atraumatic Eye: Present: conjunctival icterus - Routine Respiratory Exam Absent: accessory muscle use - Routine Cardiovascular Exam Present: RRR - Routine Abdominal Exam Present: soft, normoactive bowel sounds. Absent: tenderness, distended - Routine Skin Exam Present: dry, warm - Routine Neurological Exam Present: alert, oriented X3 <Annamarie Mattson - Last Filed: 05/04/18 12:09> Vital signs: Vital Signs 05/03/18 17:00 05/03/18 17:20 05/03/18 19:46 Temperature Pulse Rate 89 82 Respiratory Rate 18 28 H Blood Pressure 150/84 H 112/82 Pulse Oximetry 96 96 94 L 05/03/18 21:38 05/04/18 00:00 05/04/18 08:00 Temperature 97.5 F L 97.6 F 98.1 F Pulse Rate 82 84 79 Respiratory Rate 17 16 18 Blood Pressure 131/93 H 120/80 107/72 Pulse Oximetry 96 96 95 05/04/18 08:33 05/04/18 09:42 05/04/18 09:54 Temperature 98.7 F 98.6 F 98.6 F Pulse Rate 86 90 90 Respiratory Rate 18 18 18 Blood Pressure 136/87 116/89 133/94 H Pulse Oximetry 95 95 96 05/04/18 10:11 05/04/18 12:00 Temperature 97.9 F Pulse Rate 95 H Respiratory Rate 18 Blood Pressure 117/85 Pulse Oximetry 94 L 96 Intake & Output 05/03/18 05/04/18 05/04/18 18:59 06:59 18:59 Output Total 380 / 380 Balance -380 / -380 Weight 81.647 kg 77.8 kg Output: Urine 380 / 380 Other: Date of Last Bowel Movement 05/02/18 <Kristen Edgar - Last Filed: 05/04/18 15:59> Results - Labs CBC & Chem 7: 05/03/18 17:05 05/03/18 17:05 Labs: Laboratory Results - last 24 hr 05/03/18 05/03/18 05/03/18 17:05 17:05 17:05 WBC 10.2 RBC 4.22 L Hgb 13.8 Hct 41.3 MCV 97.9 MCH 32.8 MCHC 33.5 RDW 14.7 Plt Count 375 D MPV 8.3 Neut % (Auto) 77.0 H Lymph % (Auto) 14.6 [place] % (Auto) 7.0 Eos % (Auto) 0.7 Baso % (Auto) 0.7 Neut # (Auto) 7.9 H Lymph # (Auto) 1.5 [place] # (Auto) 0.7 Eos # (Auto) 0.1 Baso # (Auto) 0.1 WBC Differential . Differential Comment Auto diff final PT 14.4 H INR 1.4 APTT 28.6 Sodium 128 L Potassium 4.8 Chloride 96 L Carbon Dioxide 23.8 Anion Gap 8 BUN 16 Creatinine 0.80 Estimated GFR Greater than 89 Random Glucose 138 H Calcium 8.6 Total Bilirubin 3.6 H AST 212 H ALT 56 Alkaline Phosphatase 662 H Ammonia Total Protein 8.9 H Albumin 2.0 L Lipase 351 Urine Color Urine Clarity Urine pH Ur Specific [place] Urine Protein Urine Glucose (UA) Urine Ketones Urine Occult Blood Urine Nitrate Urine Bilirubin Urine Urobilinogen Ur Leukocyte Esterase Urine RBC Urine WBC Ur Squamous Epith Cells Hyaline Casts Urine Mucus Micro UA Comment Ur Microscopic Review Urine Culture Comments Peritoneal RBC Periton Nuc Cells Periton Neutrophils [place] Lymphocytes Peritoneal Monocytes Periton Histiocytes Peritoneal Fld Comment Peritoneal Albumin 05/03/18 05/03/18 05/04/18 17:05 23:50 09:00 WBC RBC Hgb Hct MCV MCH MCHC RDW Plt Count MPV Neut % (Auto) Lymph % (Auto) [place] % (Auto) Eos % (Auto) Baso % (Auto) Neut # (Auto) Lymph # (Auto) [place] # (Auto) Eos # (Auto) Baso # (Auto) WBC Differential Differential Comment PT INR APTT Sodium Potassium Chloride Carbon Dioxide Anion Gap BUN Creatinine Estimated GFR Random Glucose Calcium Total Bilirubin AST ALT Alkaline Phosphatase Ammonia 91 H Total Protein Albumin Lipase Urine Color [place] Urine Clarity Hazy H Urine pH 5.0 Ur Specific [place] 1.018 Urine Protein Negative Urine Glucose (UA) Negative Urine Ketones Negative Urine Occult Blood Negative Urine Nitrate Negative Urine Bilirubin Negative Urine Urobilinogen 4 or greater Ur Leukocyte Esterase Negative Urine RBC 1 Urine WBC 1 Ur Squamous Epith Cells <1 Hyaline Casts 41 Urine Mucus Few H Micro UA Comment Culture not ind Ur Microscopic Review Not Reportable Urine Culture Comments Culture not ind Peritoneal RBC 285 H [place] Nuc Cells 193 H [place] Neutrophils 18 [place] Lymphocytes 66 Peritoneal Monocytes 14 [place] Histiocytes 2 Peritoneal Fld Comment Peritoneal Albumin 05/04/18 09:00 WBC RBC Hgb Hct MCV MCH MCHC RDW Plt Count MPV Neut % (Auto) Lymph % (Auto) [place] % (Auto) Eos % (Auto) Baso % (Auto) Neut # (Auto) Lymph # (Auto) [place] # (Auto) Eos # (Auto) Baso # (Auto) WBC Differential Differential Comment PT INR APTT Sodium Potassium Chloride Carbon Dioxide Anion Gap BUN Creatinine Estimated GFR Random Glucose Calcium Total Bilirubin AST ALT Alkaline Phosphatase [place]ia Total Protein Albumin Lipase Urine Color Urine Clarity Urine pH Ur Specific [place] Urine Protein Urine Glucose (UA) Urine Ketones Urine Occult Blood Urine Nitrate Urine Bilirubin Urine Urobilinogen Ur Leukocyte Esterase Urine RBC Urine WBC Ur Squamous Epith Cells Hyaline Casts Urine Mucus Micro UA Comment Ur Microscopic Review Urine Culture Comments Peritoneal RBC [place] Nuc Cells Periton Neutrophils [place] Lymphocytes Peritoneal Monocytes Periton Histiocytes Peritoneal Fld Comment Peritoneal Albumin 0.3 - Imaging Impressions Chest X-Ray 05/03/18 16:55 CONCLUSION: No evidence of acute cardiopulmonary process. <SarahthaliaAnnamarie - Last Filed: 05/04/18 12:09> - Labs CBC & Chem 7: 05/03/18 17:05 05/03/18 17:05 Labs: Laboratory Results - last 24 hr 05/03/18 05/03/18 05/03/18 17:05 17:05 17:05 WBC 10.2 RBC 4.22 L Hgb 13.8 Hct 41.3 MCV 97.9 MCH 32.8 MCHC 33.5 RDW 14.7 Plt Count 375 D MPV 8.3 Neut % (Auto) 77.0 H Lymph % (Auto) 14.6 [place] % (Auto) 7.0 Eos % (Auto) 0.7 Baso % (Auto) 0.7 Neut # (Auto) 7.9 H Lymph # (Auto) 1.5 [place] # (Auto) 0.7 Eos # (Auto) 0.1 Baso # (Auto) 0.1 WBC Differential . Differential Comment Auto diff final PT 14.4 H INR 1.4 APTT 28.6 Sodium 128 L Potassium 4.8 Chloride 96 L Carbon Dioxide 23.8 Anion Gap 8 BUN 16 Creatinine 0.80 Estimated GFR Greater than 89 Random Glucose 138 H Calcium 8.6 Total Bilirubin 3.6 H AST 212 H ALT 56 Alkaline Phosphatase 662 H Ammonia Total Protein 8.9 H Albumin 2.0 L Lipase 351 Urine Color Urine Clarity Urine pH Ur Specific [place] Urine Protein Urine Glucose (UA) Urine Ketones Urine Occult Blood Urine Nitrate Urine Bilirubin Urine Urobilinogen Ur Leukocyte Esterase Urine RBC Urine WBC Ur Squamous Epith Cells Hyaline Casts Urine Mucus Micro UA Comment Ur Microscopic Review Urine Culture Comments Peritoneal RBC Periton Nuc Cells Periton Neutrophils [place] Lymphocytes Peritoneal Monocytes Periton Histiocytes Peritoneal Fld Comment Peritoneal Albumin 05/03/18 05/03/18 05/04/18 17:05 23:50 09:00 WBC RBC Hgb Hct MCV MCH MCHC RDW Plt Count MPV Neut % (Auto) Lymph % (Auto) [place] % (Auto) Eos % (Auto) Baso % (Auto) Neut # (Auto) Lymph # (Auto) [place] # (Auto) Eos # (Auto) Baso # (Auto) WBC Differential Differential Comment PT INR APTT Sodium Potassium Chloride Carbon Dioxide Anion Gap BUN Creatinine Estimated GFR Random Glucose Calcium Total Bilirubin AST ALT Alkaline Phosphatase [place] 91 H Total Protein Albumin Lipase Urine Color [place] Urine Clarity Hazy H Urine pH 5.0 Ur Specific [place] 1.018 Urine Protein Negative Urine Glucose (UA) Negative Urine Ketones Negative Urine Occult Blood Negative Urine Nitrate Negative Urine Bilirubin Negative Urine Urobilinogen 4 or greater Ur Leukocyte Esterase Negative Urine RBC 1 Urine WBC 1 Ur Squamous Epith Cells <1 Hyaline Casts 41 Urine Mucus Few H Micro UA Comment Culture not ind Ur Microscopic Review Not Reportable Urine Culture Comments Culture not ind Peritoneal RBC 285 H [place] Nuc Cells 193 H [place] Neutrophils 18 [place] Lymphocytes 66 Peritoneal Monocytes 14 [place] Histiocytes 2 Peritoneal Fld Comment Peritoneal Albumin 05/04/18 09:00 WBC RBC Hgb Hct MCV MCH MCHC RDW Plt Count MPV Neut % (Auto) Lymph % (Auto) [place] % (Auto) Eos % (Auto) Baso % (Auto) Neut # (Auto) Lymph # (Auto) [place] # (Auto) Eos # (Auto) Baso # (Auto) WBC Differential Differential Comment PT INR APTT Sodium Potassium Chloride Carbon Dioxide Anion Gap BUN Creatinine Estimated GFR Random Glucose Calcium Total Bilirubin AST ALT Alkaline Phosphatase [place] Total Protein Albumin Lipase Urine Color Urine Clarity Urine pH Ur Specific [place] Urine Protein Urine Glucose (UA) Urine Ketones Urine Occult Blood Urine Nitrate Urine Bilirubin Urine Urobilinogen Ur Leukocyte Esterase Urine RBC Urine WBC Ur Squamous Epith Cells Hyaline Casts Urine Mucus Micro UA Comment Ur Microscopic Review Urine Culture Comments Peritoneal RBC Periton Nuc Cells Periton Neutrophils Periton Lymphocytes Peritoneal Monocytes Periton Histiocytes Peritoneal Fld Comment Peritoneal Albumin 0.3 - Imaging Impressions Chest X-Ray 05/03/18 16:55 CONCLUSION: No evidence of acute cardiopulmonary process. <Kristen Edgar - Last Filed: 05/04/18 15:59> Assessment and Plan - Plan Assessment: - Cirrhosis with recent liver biopsy consistent with cholangiocarcinoma and known history of Hepatitis C, treatment naive. Pt seen by our service last month for black stools, underwent EGD which revealed One column of grade 1 esophageal varices, mild to moderate portal gastropathy,duodenitis. Pt was started on Spironolactone, Lasix, Inderal and Lactulose which he reports compliance with. Complaining of abdominal distention on arrival progressed to the point where he was no longer able to take a deep breath. Was on Xarelto for ?portal vein thrombosis- held this for the past 5 days anticipating a paracentesis. Pt denies history of paracentesis. Previous work up revealed pt to have Hepatitis C, he denies previous treatment for this. Denies history of IVDU, tattoos, previous blood transfusions. Does report history of unprotected sex when he was younger. Denies ETOH in 5 years. Does report smoking marijuana to help him with pain control. Has not seen oncologist- is having problems with follow ups- currently does not have insurance is waiting for approval from Medicaid- anticipating approval this week Plan: Consult oncology-cholangiocarcinoma Continue diuretics Continue Inderal Lactulose S/P paracentesis today- 8.5 L removed per RN Albumin replacement Monitor LFTs Monitor for coagulopathy Monitor platelets Supportive care Further recommendations to follow Pt has been seen and examined by myself and Dr. Edgar and this note is written on his behalf <Annamarie Mattson - Last Filed: 05/04/18 12:09> - Plan Seen and examined with PERSONAL LOAN SPECIALIST, feels better after paracentesis. ONcology consulted. The exam, history, and the medical decision-making described in the above note were completed with the assistance of the mid-level provider. I reviewed and agree with the findings presented. I attest that I had a [id number] encounter with the patient on the same day, and personally performed and documented my assessment and findings in the medical record. <Kristen Edgar - Last Filed: 05/04/18 15:59>
--- NOTE | 2018-05-04 17:09 | US ---
EXAM DATE: 05/04/2018 12:00 AM EDT AGE/SEX: 52 years / Male INDICATIONS: Ascites. CLINICAL DATA: This is the patient's subsequent encounter. Patient reports that signs and symptoms h ave been present for 1 month and indicates a pain score of 2/10. MEDICAL/SURGICAL HISTORY: Cirrhosis. Hepatitis C. Liver cancer. Anticoagulant therapy. Portal hypertension. Portal vein thrombosis. Esophageal varices. . Hernia repair. [place] [facility] [place]05/2018. . FLUID: Total volume of 8200 cc of clear, yellow fluid was removed. Fluid was sent to lab for ordered studies . TECHNIQUE: Ultrasound guidance for abdominal paracentesis. Paracentesis. The risks, benefits, and alternatives to ultrasound guided paracentesis were explained to the patient in detail including the risk of bleeding and infection. Written and verbal informed consent was obt ained. With the patient on the ultrasound table, ultrasound imaging was used to select the most appropriate approach for paracentesis. Overlying skin was prepped and draped in the usual sterile fashion and wi th a local anesthetic, a dermatotomy was made with an 11 blade scalpel. A 6 [place] [id number] ca theter was introduced into the peritoneal cavity and fluid was collected. Post procedure scanning reveals no hematoma or other complication. The patient tolerated the procedu re well and left the ultrasound suite in stable condition. CONCLUSION: 1. Uncomplicated abdominal paracentesis. Electronically signed by: Viraj Rees MD 05/04/2018 5:07 PM EDT
--- NOTE | 2018-05-04 17:14 | P.PN ---
Subjective Interval history: this is a pleasant 52 y/o male with ESLD, esophageal varices, hepatocellular carcinoma, Portal vein thrombosis on Xarelto, came with two week history of abdominal pain, He says he stopped his Xarelto 5 days ago because he knows he needs a paracentesis. He denies ever having a paracentesis previously. He is on Lasix and spironolactone and says he continues to take these medications. has hepatitis C, Cirrhosis and Liver cancer. Tobacco dependence, alcohol abuse, also abuse marijuana Seen in his bedroom, statu s post paracentesis, recommended by GI specialist for Oncology for Cholangiocarcinoma, recommended to continue diuretics, Inderal, Lactulose, 8.5 L removed, Albumin replacement, no nausea, vomit or diarrhea. Physical Exam Vital signs: Vital Signs 05/03/18 17:20 05/03/18 19:46 05/03/18 21:38 Temperature 97.5 F L Pulse Rate 82 82 Respiratory Rate 28 H 17 Blood Pressure 112/82 131/93 H Pulse Oximetry 96 94 L 96 05/04/18 00:00 05/04/18 08:00 05/04/18 08:33 Temperature 97.6 F 98.1 F 98.7 F Pulse Rate 84 79 86 Respiratory Rate 16 18 18 Blood Pressure 120/80 107/72 136/87 Pulse Oximetry 96 95 95 05/04/18 09:42 05/04/18 09:54 05/04/18 10:11 Temperature 98.6 F 98.6 F Pulse Rate 90 90 Respiratory Rate 18 18 Blood Pressure 116/89 133/94 H Pulse Oximetry 95 96 94 L 05/04/18 12:00 05/04/18 16:00 Temperature 97.9 F 98.1 F Pulse Rate 95 H 86 Respiratory Rate 18 18 Blood Pressure 117/85 110/74 Pulse Oximetry 96 92 L Intake & Output 05/03/18 05/04/18 05/04/18 18:59 06:59 18:59 Output Total 380 / 380 Balance -380 / -380 Weight 81.647 kg 77.8 kg Output: Urine 380 / 380 Other: Date of Last Bowel Movement 05/02/18 Narrative: GENERAL: This is a well-nourished, well-developed patient, in no apparent distress. CARDIOVASCULAR: Regular rate and rhythm without murmurs, gallops, or rubs. RESPIRATORY: Clear to auscultation. Breath sounds equal bilaterally. No wheezes , rales, or rhonchi. GASTROINTESTINAL: Abdomen distended, MUSCULOSKELETAL: Extremities without clubbing, cyanosis, or edema. NEURO: Alert & Oriented x4 to person, place, time, situation. Results - Labs CBC & Chem 7: 05/03/18 17:05 05/03/18 17:05 Laboratory Results - last 24 hr 05/03/18 05/03/18 05/03/18 17:05 17:05 17:05 WBC 10.2 RBC 4.22 L Hgb 13.8 Hct 41.3 MCV 97.9 MCH 32.8 MCHC 33.5 RDW 14.7 Plt Count 375 D MPV 8.3 Neut % (Auto) 77.0 H Lymph % (Auto) 14.6 [place] % (Auto) 7.0 Eos % (Auto) 0.7 Baso % (Auto) 0.7 Neut # (Auto) 7.9 H Lymph # (Auto) 1.5 [place] # (Auto) 0.7 Eos # (Auto) 0.1 Baso # (Auto) 0.1 WBC Differential . Differential Comment Auto diff final PT 14.4 H INR 1.4 APTT 28.6 Sodium 128 L Potassium 4.8 Chloride 96 L Carbon Dioxide 23.8 Anion Gap 8 BUN 16 Creatinine 0.80 Estimated GFR Greater than 89 Random Glucose 138 H Calcium 8.6 Total Bilirubin 3.6 H AST 212 H ALT 56 Alkaline Phosphatase 662 H Ammonia Total Protein 8.9 H Albumin 2.0 L Lipase 351 Urine Color Urine Clarity Urine pH Ur Specific [place] Urine Protein Urine Glucose (UA) Urine Ketones Urine Occult Blood Urine Nitrate Urine Bilirubin Urine Urobilinogen Ur Leukocyte Esterase Urine RBC Urine WBC Ur Squamous Epith Cells Hyaline Casts Urine Mucus Micro UA Comment Ur Microscopic Review Urine Culture Comments Peritoneal RBC Periton Nuc Cells Periton Neutrophils Periton Lymphocytes Peritoneal Monocytes Periton Histiocytes Peritoneal Fld Comment Peritoneal Albumin 05/03/18 05/03/18 05/04/18 17:05 23:50 09:00 WBC RBC Hgb Hct MCV MCH MCHC RDW Plt Count MPV Neut % (Auto) Lymph % (Auto) [place] % (Auto) Eos % (Auto) Baso % (Auto) Neut # (Auto) Lymph # (Auto) [place] # (Auto) Eos # (Auto) Baso # (Auto) WBC Differential Differential Comment PT INR APTT Sodium Potassium Chloride Carbon Dioxide Anion Gap BUN Creatinine Estimated GFR Random Glucose Calcium Total Bilirubin AST ALT Alkaline Phosphatase Ammonia 91 H Total Protein Albumin Lipase Urine Color [place] Urine Clarity Hazy H Urine pH 5.0 Ur Specific [place] 1.018 Urine Protein Negative Urine Glucose (UA) Negative Urine Ketones Negative Urine Occult Blood Negative Urine Nitrate Negative Urine Bilirubin Negative Urine Urobilinogen 4 or greater Ur Leukocyte Esterase Negative Urine RBC 1 Urine WBC 1 Ur Squamous Epith Cells <1 Hyaline Casts 41 Urine Mucus Few H Micro UA Comment Culture not ind Ur Microscopic Review Not Reportable Urine Culture Comments Culture not ind Peritoneal RBC 285 H Per[place] Nuc Cells 193 H [place] Neutrophils 18 [place] Lymphocytes 66 Peritoneal Monocytes 14 Periton Histiocytes 2 Peritoneal Fld Comment Peritoneal Albumin 05/04/18 09:00 WBC RBC Hgb Hct MCV MCH MCHC RDW Plt Count MPV Neut % (Auto) Lymph % (Auto) [place] % (Auto) Eos % (Auto) Baso % (Auto) Neut # (Auto) Lymph # (Auto) [place] # (Auto) Eos # (Auto) Baso # (Auto) WBC Differential Differential Comment PT INR APTT Sodium Potassium Chloride Carbon Dioxide Anion Gap BUN Creatinine Estimated GFR Random Glucose Calcium Total Bilirubin AST ALT Alkaline Phosphatase Ammonia Total Protein Albumin Lipase Urine Color Urine Clarity Urine pH Ur Specific [place] Urine Protein Urine Glucose (UA) Urine Ketones Urine Occult Blood Urine Nitrate Urine Bilirubin Urine Urobilinogen Ur Leukocyte Esterase Urine RBC Urine WBC Ur Squamous Epith Cells Hyaline Casts Urine Mucus Micro UA Comment Ur Microscopic Review Urine Culture Comments Peritoneal RBC Periton Nuc Cells Periton Neutrophils Periton Lymphocytes Peritoneal Monocytes Periton Histiocytes Peritoneal Fld Comment Peritoneal Albumin 0.3 - Imaging Impressions Chest X-Ray 05/03/18 16:55 CONCLUSION: No evidence of acute cardiopulmonary process. Paracentesis Ultrasound 05/04/18 00:00 CONCLUSION: 1. Uncomplicated abdominal paracentesis. - Procedures Paracentesis obtained 8.5 L fluid. Assessment and Plan - Plan ////Worsening abdominal ascites status post paracentesis. obtained 8.5 L of fluid, recommended by GI specialist for Oncology for Cholangiocarcinoma, recommended to continue diuretics, Inderal, Lactulose, Albumin replacement. //End-stage liver disease //Hepatitis C //Hepatocellular carcinoma soil fertility specialist consulted. //History of esophageal varices -Low suspicion for SBP, however patient will be tapped in the morning with cultures, cell count = ESLD meds. Diuresed with IV Lasix. Fluid restrictions. Continue to monitor. Consult irrigation foreman for worsening end-stage liver disease //Hypernatremia. Sodium 128. Likely secondary to liver disease. Will place on fluid restrictions. //Hyperammonemia Ammonia level elevated in the 90s. Patient does not appear to be altered. continue lactulose. Code Status: Full Code. Discussed Condition With: Patient and nurse. Discharge Planning: once cleared by GI specialist and nuisance wildlife specialist.
[2018-05-05] MEDS: Furosemide 20 MG Tablet PO SCH (08:10)
[2018-05-05] MEDS: Spironolactone 50 MG Tablet PO SCH (08:10)
[2018-05-05 08:59] VITALS: RESP 17
--- NOTE | 2018-05-05 10:50 | P.PNGI ---
Subjective Interval history: Pt resting in bed, states some increased abdominal distention but denies pain. Tolerating PO. Denies nausea, vomiting. Having BMs. Physical Exam Vital signs: Vital Signs 05/04/18 12:00 05/04/18 16:00 05/04/18 20:00 Temperature 97.9 F 98.1 F 98.7 F Pulse Rate 95 H 86 82 Respiratory Rate 18 18 16 Blood Pressure 117/85 110/74 115/62 Pulse Oximetry 96 92 L 95 05/05/18 00:00 05/05/18 08:00 Temperature 98.9 F 98.0 F Pulse Rate 84 77 Respiratory Rate 16 17 Blood Pressure 121/78 116/78 Pulse Oximetry 96 95 Intake & Output 05/04/18 05/05/18 05/05/18 18:59 06:59 18:59 Intake Total 1586 / 1586 Balance 1586 / 1586 Weight 68 kg Intake: IV 200 / 200 Flexbumin 25% Inj 200 ML @ 60 200 / 200 mls/hr IV.SIG ONCE ONE Rx#: [id number] Oral 1386 / 1386 Other: # Voids 4 Date of Last Bowel Movement 05/02/18 05/02/18 # Bowel Movements 3 - Constitutional no acute distress - Routine HEENT Exam Head: Present: normocephalic, atraumatic Eye: Present: conjunctival icterus - Routine Respiratory Exam Absent: accessory muscle use - Routine Abdominal Exam Present: soft, normoactive bowel sounds, distended. Absent: tenderness - Routine Skin Exam Present: dry, warm - Routine Neurological Exam Present: alert, oriented X3 Results - Labs CBC & Chem 7: 05/03/18 17:05 05/03/18 17:05 Laboratory Results - last 24 hr 05/04/18 09:00 Peritoneal RBC 285 H Periton Nuc Cells 193 H Periton Neutrophils 18 Periton Lymphocytes 66 Peritoneal Monocytes 14 Periton Histiocytes 2 Peritoneal Fld Comment Microbiology 05/04/18 09:00 Fluid - Ascites Fluid Gram Stain - Final - Imaging Impressions Paracentesis Ultrasound 05/04/18 00:00 CONCLUSION: 1. Uncomplicated abdominal paracentesis. Assessment and Plan - Plan Assessment: - Cirrhosis with recent liver biopsy consistent with cholangiocarcinoma and known history of Hepatitis C, treatment naive. Pt seen by our service last month for black stools, underwent EGD which revealed One column of grade 1 esophageal varices, mild to moderate portal gastropathy,duodenitis. Pt was started on Spironolactone, Lasix, Inderal and Lactulose which he reports compliance with. Complaining of abdominal distention on arrival progressed to the point where he was no longer able to take a deep breath. Was on Xarelto for ?portal vein thrombosis- held this for the past 5 days anticipating a paracentesis. Pt denies history of paracentesis. Previous work up revealed pt to have Hepatitis C, he denies previous treatment for this. Denies history of IVDU, tattoos, previous blood transfusions. Does report history of unprotected sex when he was younger. Denies ETOH in 5 years. Does report smoking marijuana to help him with pain control. Has not seen oncologist- is having problems with follow ups- currently does not have insurance is waiting for approval from Medicaid- anticipating approval this week (05/05) Pt states seen by oncologist this morning, recommendations pending. Some increased abdominal distention but no complaints of abdominal pain. Tolerating PO. Denies nausea, vomiting. Having BMs Plan: Oncology recommendations pending Continue diuretics Continue Inderal Lactulose S/P paracentesis yesterday Monitor LFTs Monitor for coagulopathy Monitor platelets Continue with current supportive care Our service will sign off, have pt follow up with GI after DC Pt has been seen and examined by myself and Dr. Edgar and this note is written on his behalf
--- NOTE | 2018-05-05 16:25 | P.PN ---
Subjective Interval history: this is a pleasant 52 y/o male with ESLD, esophageal varices, hepatocellular carcinoma, Portal vein thrombosis on Xarelto, came with two week history of abdominal pain, He says he stopped his Xarelto 5 days ago because he knows he needs a paracentesis. He denies ever having a paracentesis previously. He is on Lasix and spironolactone and says he continues to take these medications. has hepatitis C, Cirrhosis and Liver cancer. Tobacco dependence, alcohol abuse, also abuse marijuana Seen in his bedroom, statu s post paracentesis, recommended by GI specialist for Oncology for Cholangiocarcinoma, recommended to continue diuretics, Inderal, Lactulose, 8.5 L removed, Albumin replacement. 05/05: Stable in his bedroom EGD revealed grade 1 esophageal Varices, awaiting for final recommendations by nail specialist, discussed with GI specialist signed off the case, no nausea, vomit or diarrhea. Physical Exam Vital signs: Vital Signs 05/04/18 20:00 05/05/18 00:00 05/05/18 08:00 Temperature 98.7 F 98.9 F 98.0 F Pulse Rate 82 84 77 Respiratory Rate 16 16 17 Blood Pressure 115/62 121/78 116/78 Pulse Oximetry 95 96 95 05/05/18 12:00 05/05/18 16:00 Temperature 97.9 F 98.1 F Pulse Rate 78 82 Respiratory Rate 17 17 Blood Pressure 116/81 98/71 L Pulse Oximetry 96 95 Intake & Output 05/04/18 05/05/18 05/05/18 18:59 06:59 18:59 Intake Total 1586 / 1586 Balance 1586 / 1586 Weight 68 kg Intake: IV 200 / 200 Flexbumin 25% Inj 200 ML @ 60 200 / 200 mls/hr IV.SIG ONCE ONE Rx#: [id number] Oral 1386 / 1386 Other: # Voids 4 Date of Last Bowel Movement 05/02/18 05/02/18 # Bowel Movements 3 Narrative: GENERAL: This is a well-nourished, well-developed patient, in no apparent distress. CARDIOVASCULAR: Regular rate and rhythm without murmurs, gallops, or rubs. RESPIRATORY: Clear to auscultation. Breath sounds equal bilaterally. No wheezes , rales, or rhonchi. GASTROINTESTINAL: Abdomen distended, MUSCULOSKELETAL: Extremities without clubbing, cyanosis, or edema. NEURO: Alert & Oriented x4 to person, place, time, situation. Results - Labs CBC & Chem 7: 05/03/18 17:05 05/03/18 17:05 Microbiology 05/04/18 09:00 Fluid - Ascites Fluid Gram Stain - Final 05/04/18 09:00 Fluid - Ascites Fluid Body Fluid Culture - Preliminary No growth in 24 hours - Imaging Impressions Paracentesis Ultrasound 05/04/18 00:00 CONCLUSION: 1. Uncomplicated abdominal paracentesis. - Procedures Paracentesis obtained 8.5 L fluid. Assessment and Plan - Plan ////Worsening abdominal ascites status post paracentesis. obtained 8.5 L of fluid, recommended by GI specialist for Oncology for Cholangiocarcinoma, recommended to continue diuretics, Inderal, Lactulose, Albumin replacement. //End-stage liver disease //Hepatitis C //Hepatocellular carcinoma mortgage protection specialist consulted. //History of esophageal varices -Low suspicion for SBP, however patient will be tapped in the morning with cultures, cell count = ESLD meds. Diuresed with IV Lasix. Fluid restrictions. Continue to monitor. Consult loom changer for worsening end-stage liver disease //Hypernatremia. Sodium 128. Likely secondary to liver disease. Will place on fluid restrictions. //Hyperammonemia Ammonia level elevated in the 90s. Patient does not appear to be altered. continue lactulose. Awaiting for final recommendations by Oncology for discharge. Code Status: Full Code Discussed Condition With: patient and nurse. Discharge Planning: once cleared by nail specialist.
--- NOTE | 2018-05-05 18:57 | P.DS ---
Date of admission: 05/03/18 18:51 Primary care physician: Nanette Thurston Attending physician on discharge: Walter Bradshaw Anticipated date of discharge: 05/05/18 Brief History from admission: 52-year-old male with a history of end-stage liver disease, esophageal varices, hepatocellular carcinoma,Portal vein thrombosis on Xarelto who presents with a two-week history of progressively worsening sharp whole abdomen abdominal pain. He says he stopped his Xarelto 5 days ago because he knows he needs a paracentesis. He denies ever having a paracentesis previously. He is on Lasix and spironolactone and says he continues to take these medications. DS: Diagnosis - Discharge Diagnosis (1) Abdominal pain Status: Acute (2) Ascites of liver Status: Acute (3) Elevated liver enzymes Status: Acute (4) Obstructive jaundice Status: Acute (5) Portal vein thrombosis Status: Acute (6) Ascites Status: Acute (7) Cirrhosis Status: Acute DS: Summary Hospital Course: Interval history: this is a pleasant 52 y/o male with ESLD, esophageal varices, hepatocellular carcinoma, Portal vein thrombosis on Xarelto, came with two week history of abdominal pain, He says he stopped his Xarelto 5 days ago because he knows he needs a paracentesis. He denies ever having a paracentesis previously. He is on Lasix and spironolactone and says he continues to take these medications. has hepatitis C, Cirrhosis and Liver cancer. Tobacco dependence, alcohol abuse, also abuse marijuana Seen in his bedroom, statu s post paracentesis, recommended by GI specialist for Oncology for Cholangiocarcinoma, recommended to continue diuretics, Inderal, Lactulose, 8.5 L removed, Albumin replacement. 05/05: Stable in his bedroom EGD revealed grade 1 esophageal Varices, awaiting for final recommendations by apartment leasing specialist, discussed with GI specialist signed off the case, no nausea, vomit or diarrhea. Results - Labs CBC & Chem 7: 05/03/18 17:05 05/03/18 17:05 Microbiology 05/04/18 09:00 Fluid - Ascites Fluid Gram Stain - Final 05/04/18 09:00 Fluid - Ascites Fluid Body Fluid Culture - Preliminary No growth in 24 hours - Procedures Paracentesis obtained 8.5 L fluid. Assessment and Plan - Plan ////Worsening abdominal ascites status post paracentesis. obtained 8.5 L of fluid, recommended by GI specialist for Oncology for Cholangiocarcinoma, recommended to continue diuretics, Inderal, Lactulose, Albumin replacement. //End-stage liver disease //Hepatitis C //Hepatocellular carcinoma ict security specialist consulted. and recommended outpatient follow up //History of esophageal varices -Low suspicion for SBP, however patient will be tapped in the morning with cultures, cell count = ESLD meds. Diuresed with IV Lasix. Fluid restrictions. Continue to monitor. Consult supply and distribution manager for worsening end-stage liver disease //Hypernatremia. Sodium 128. Likely secondary to liver disease. Will place on fluid restrictions. //Hyperammonemia Ammonia level elevated in the 90s. Patient does not appear to be altered. continue lactulose. Awaiting for final recommendations by Oncology for discharge. Code Status: Full Code Discussed Condition With: patient and nurse. Discharge Planning: once cleared by apartment leasing specialist. - Time Spent with Patient Total time spent providing and/or coordinating discharge services: Less than 30 minutes - Quality: VTE Deep Vein Thrombosis/Pulmonary Embolism Present on Admission: No Exam Vital signs: Vital Signs 05/04/18 20:00 05/05/18 00:00 05/05/18 08:00 Temperature 98.7 F 98.9 F 98.0 F Pulse Rate 82 84 77 Respiratory Rate 16 16 17 Blood Pressure 115/62 121/78 116/78 Pulse Oximetry 95 96 95 05/05/18 12:00 05/05/18 16:00 Temperature 97.9 F 98.1 F Pulse Rate 78 82 Respiratory Rate 17 17 Blood Pressure 116/81 98/71 L Pulse Oximetry 96 95 Intake & Output 05/04/18 05/05/18 05/05/18 18:59 06:59 18:59 Intake Total 1586 / 1586 960 / 960 Balance 1586 / 1586 960 / 960 Weight 68 kg Intake: IV 200 / 200 Flexbumin 25% Inj 200 ML @ 60 200 / 200 mls/hr IV.SIG ONCE ONE Rx#: [id number] Oral 1386 / 1386 960 / 960 Other: # Voids 4 5 Date of Last Bowel Movement 05/02/18 05/02/18 # Bowel Movements 3 3 Narrative: GENERAL: This is a well-nourished, well-developed patient, in no apparent distress. CARDIOVASCULAR: Regular rate and rhythm without murmurs, gallops, or rubs. RESPIRATORY: Clear to auscultation. Breath sounds equal bilaterally. No wheezes , rales, or rhonchi. GASTROINTESTINAL: Abdomen distended, MUSCULOSKELETAL: Extremities without clubbing, cyanosis, or edema. NEURO: Alert & Oriented x4 to person, place, time, situation. Results Procedures completed during hospitalization: Paracentesis obtained 8.5 L fluid. Labs on day of discharge: Preliminary micro results at discharge 05/04/18 09:00 Body Fluid Culture - Preliminary Fluid - Ascites Fluid No growth in 24 hours - Impressions ITS Impressions Chest X-Ray 05/03/18 16:55 CONCLUSION: No evidence of acute cardiopulmonary process. Paracentesis Ultrasound 05/04/18 00:00 CONCLUSION: 1. Uncomplicated abdominal paracentesis. Discharge Plan - Discharge Disposition Patient Disposition: 01 Discharge Home - Discharge Condition Condition: Stable - Discharge Order Discharge Orders: Discharge Order (Routine); Ordered 05/05/18 Ordered By: Walter Bradshaw - Discharge Details Anticipated Discharge Date: 05/05/18 Discharge Comment: Follow up with PCP in three days - Physicians Team Primary Care Provider: Nanette Thurston, Attending Provider: Walter Bradshaw Other Providers: Kristen Edgar MD ; Olivia Tobias MD
--- NOTE | 2018-05-05 19:24 | MB ---
cc: Olivia Tobias MD DATE: 05/05/2018 REFERRING PHYSICIAN: FABRICE Love CHIEF COMPLAINT: Annamarie Mattson requests a consultation for Abhishek Dias regarding newly diagnosed metastatic cholangiocarcinoma. HISTORY OF PRESENT ILLNESS: Mr. Dias is a 52-year-old man with no significant past history. He reports progressive weight loss since 6 months ago. He weighed over 200 pounds. It took him time to establish with a primary physician, Dr. Nate Marie. He also started developing abdominal pain in the midepigastric area. Mr. Dias any previous history of liver disease. He reports being a heavy drinker in his 20s. He decreased his drinking in his 30s. He reports not drinking at all over the last 5 years. He denies any history of hepatitis. He seems surprised with the diagnosis of cirrhosis. On 03/02/2018, CT scan of the abdomen and pelvis showed cirrhotic-appearing liver without significant change. The spleen is in the upper limits of normal. There were small to moderate amount of ascites. There was noncalcified pulmonary nodule, which required no prior evaluation according to the Fleischner criteria. At that time, he was seen in the emergency room for abdominal pain. He was also found to have portal vein thromboses. He was started on Xarelto. He re-presented to the emergency room on 03/30/2018. He describes increasing abdominal girth and dark stools. He had been placed on Xarelto. Ultrasound of the liver showed hepatomegaly, portal venous thrombosis with cavernous transformation, and a 4 cm hypoechoic smooth margin mass near the head of the pancreas. He at this point had marked amount of ascites. Dr. Muñiz performed an EGD with biopsy. He had one column of esophageal varices. There was mild to moderate portal gastropathy. There was duodenitis. However, it was the abdominal MRI on 04/01/2018 that confirmed the mass. There was markedly heterogenous liver appearance with extensive replacement of normal hepatic parenchyma with nodules. Most of the nodules were regenerative. However, there is an enlarged nodule in the left lobe, particularly worrisome for hepatocellular carcinoma. Ultimately, a CT-guided liver biopsy was performed on 04/05/2018. The final pathology showed cholangiocarcinoma. He was ultimately discharged home, only to return on 05/03/2018. He has not established with an oncology associate despite the liver cancer diagnosis. He had worsening ascites and abdominal discomfort. He had difficulty breathing from the tense ascites. He was then admitted for therapeutic paracentesis. His anticoagulant therapy was held. He tolerated the procedure well. Gastroenterology was consulted. He was found to have hepatitis C. He has not previous treatment for the hepatitis C. Hematology/oncology is consulted for the newly diagnosed cholangiocarcinoma. PAST MEDICAL HISTORY: Unintentional weight loss, chronic active hepatitis C, portal hypertension, portal vein thromboses, cirrhosis, elevated liver function, jaundice. FAMILY HISTORY: Unknown. Father left before he was born. Mother when he was 1. SOCIAL HISTORY: He is , lives with his . He works in construction. SOCIAL HISTORY: He quit drinking 5 years ago. He is an everyday smoker. He denies any illicit drug use. ALLERGIES: NO KNOWN DRUG ALLERGIES. CURRENT MEDICATIONS: Include: 1. Lasix. 2. Lactulose. 3. Naloxone. 4. Roxicodone p.r.n. 5. Inderal. 6. Aldactone. PHYSICAL EXAMINATION: VITAL SIGNS: Temperature 98.1, heart rate 82, respiratory rate 17, blood pressure 98/71, saturation 95%. GENERAL: Mr. Abhishek Dias is a well-developed, well-nourished man who looks thin as he has lost weight. There is redundant skin in his arms. He has bitemporal wasting. HEENT: His pupils are round, reactive to light and accommodation. Conjunctivae are icteric. Oropharynx is clear. NECK: Supple. LUNGS: Clear to auscultation. CARDIOVASCULAR: Reveals normal rate and rhythm. ABDOMEN: Soft, large, distended. There is hepatomegaly appreciated. EXTREMITIES: No edema. Good pulses. NEUROLOGIC: Nonfocal. LABORATORY DATA: Significant for a sodium of 128, glucose 138, total bilirubin 3.6, AST 212, ALT 56, alkaline phosphatase 662, ammonia 91, albumin 2.0. CBC is normal. ASSESSMENT AND PLAN: Mr. Dias is a 52-year-old man with a history of chronic active hepatitis C, not previously diagnosed. He currently has cirrhosis and complications of a cholangiocarcinoma. I discussed with Mr. Dias his diagnosis of cholangiocarcinoma. His biopsy came from a liver lesion. He has severely compromised liver function with significantly elevated ammonia, decreased albumin, radiographic changes consistent with cirrhosis and untreated hepatitis C. He is unlikely to tolerate a liver resection. We can consider option of ablative therapy for the localized disease. I will have to consult with our interventional radiologist. We discussed palliative chemotherapy for cholangiocarcinoma. We have standard cytotoxic chemotherapy which is standard of care. There is growing evidence that checkpoint inhibitors may be helpful. We discussed that these treatments are administered on an outpatient basis in our oncology clinic. He was given information on contacting our new patient referral to establish his care. His name was forwarded to our financial engineer to allow him to come into the oncology clinic for followup. In the meantime, I concur with continuing his diuretic therapy with spironolactone and Lasix on a p.r.n. basis. He looks clinically dry at present. His ascites have improved with the paracentesis. He still is quite distended. We discussed that some of these symptoms are going to be chronic. The hyponatremia will be monitored as he is on spironolactone which may contribute to that and make it worse. We discussed that he is not a candidate for liver transplant for his cirrhosis because of the cholangiocarcinoma. In general, patients with hepatocellular cancer are not transplant candidates as they need to be on immunosuppressive medication after the transplant. His questions were answered to his satisfaction. Olivia Tobias MD KATERIN/ct , 05:52 PM , 06:08 PM
[2018-05-05 21:03] VITALS: BP 116/71; PULSE 84; TEMP 98.3; O2SAT 96
== END 2018-05-05 21:18 | disposition home or self-care (01) ==
LOC: NEPC 15:41 → NEDA 18:51 → N07 21:36
PROVIDERS: ADMIT Internal Medicine; ATTEND Internal Medicine

== ENCOUNTER 2018-05-11 15:34 | Observation (INO) ==
[2018-05-11] MEDS ORDERED: Morphine Inj 4 MG/ML Vial IV.PUSH ONE (17:29)
[2018-05-11] MEDS ORDERED: Pantoprazole Inj 80 MG in Sodium Chlor 0.9% Inj 35 ML IV.SIG ONE (17:34)
--- NOTE | 2018-05-11 17:34 | ED ---
HPI General Chief Complaint: Abdominal Pain Stated Complaint: Abd pain/lot of fluid swelling Time Seen by Provider: 05/11/18 17:20 Source: patient, family, RN notes reviewed and old records reviewed Mode of arrival: ambulatory Limitations: no limitations History of Present Illness HPI narrative: 52 y/o male presents with return of abdominal distention and abdominal pain since he was here recently. He states that he also has intermittently been having bleeding in his stools. He denies any other concurrent complaints. He states he is still working on getting outpatient follow-up. He denies specific modifying factors other than the pain is worse if you touch the area. Severity of pain is severe. Quality of pain is sharp. Related Data Previous Rx's Medication Instructions Recorded furosemide [Lasix] 20 mg PO DAILY #30 tab 04/05/18 propranolol 20 mg PO BID #60 tab 04/05/18 rivaroxaban [Xarelto] 20 mg PO DAILY #30 tab 04/05/18 spironolactone 50 mg PO DAILY #30 tab 04/05/18 Allergies Allergy/AdvReac Type Severity Reaction Status Date / Time No Known Allergies AdvReac Unknown Uncoded 01/23/18 10:43 Review of Systems ROS: all other systems reviewed are negative PMFSH History History Provided By: Patient and Family Member Medical History Medical History Hepatitis C antibody positive in blood (Acute) Hx of assisted use of blood thinners (Acute) Portal hypertension (Acute) Obstructive jaundice (Acute) Elevated liver enzymes (Acute) Portal vein thrombosis (Acute) Cirrhosis (Acute) Liver cancer (Acute) Surgical History Surgical History History of hernia surgery (Acute) Family History Family History Other Unknown family medical history Social History Social History Substance History: No History of Abuse Second Hand Smoke Exposure: No Smoking Status: Current some day smoker Tobacco Type: Cigarettes How Often Do You Have a Drink Containing Alcohol: Monthly or less Hx Recent Travel: No Exam Narrative Exam Narrative: GENERAL: 52 y/o male who appears uncomfortable SKIN: Focused skin assessment warm/dry. HEAD: Atraumatic. Normocephalic. EYES: Pupils equal and round. scleral icterus. No injection or drainage. ENT: No nasal bleeding or discharge. Mucous membranes pink and moist. NECK: Trachea midline. No JVD. CARDIOVASCULAR: Regular rate and rhythm. RESPIRATORY: No accessory muscle use. GASTROINTESTINAL: Abdomen soft, mild tenderness diffusely, ascitic fluid wave, distention noted, no rebound MUSCULOSKELETAL: No obvious deformities. No clubbing. No cyanosis. NEUROLOGICAL: Awake. Motor grossly within normal limits. Normal speech. PSYCHIATRIC: Appropriate mood and affect; insight and judgment normal. Course Reevaluation(s) Reevaluation #1: Patient with mild leukocytosis, hemoglobin stable. Will admit for further care Consultations Consultation #1: dr kamara states to place in full admit Initial Documented Vital Signs Temperature 97.4 F L 05/11/18 15:38 Pulse Rate 102 H 05/11/18 15:38 Respiratory Rate 25 H 05/11/18 15:38 Blood Pressure 148/104 H 05/11/18 15:38 Pulse Oximetry 98 05/11/18 15:38 Last Documented Vital Signs Temperature 97.4 F L 05/11/18 15:38 Pulse Rate 80 05/11/18 15:40 Respiratory Rate 16 05/11/18 15:40 Blood Pressure 145/96 H 05/11/18 15:40 Pulse Oximetry 98 05/11/18 15:40 Medical Decision Making MDM Narrative Medical decision making narrative: Will check blood work and monitor. Patient with cholangiocarcinoma with recurrent ascites will likely need paracentesis in the morning given history with intermittent bleeding his hemoglobin will likely also need to be monitored overnight. Medical Screen Exam Complete: Yes Emergency Medical Condition: Yes Differential Diagnosis Differential Diagnosis: Recurrent ascites, anemia, gastritis, pancreatitis Lab Data Result diagrams: 05/11/18 17:40 05/11/18 17:40 Lab Results 05/11/18 05/11/18 05/11/18 Range/Units 17:40 17:40 17:40 WBC 16.9 H (4.0-11.0) th/mm3 RBC 4.47 L (4.50-5.90) mil/mm3 Hgb 14.5 (13.0-17.0) gm/dL Hct 42.9 (39.0-51.0) % MCV 96.0 (80.0-100.0) fL MCH 32.4 (27.0-34.0) pg MCHC 33.7 (32.0-36.0) % RDW 15.4 (11.6-17.2) % Plt Count 332 (150-450) th/mm3 MPV 8.4 (7.0-11.0) fL Neut % (Auto) 81.3 H (16.0-70.0) % Lymph % (Auto) 10.8 (9.0-44.0) % [place] % (Auto) 6.9 (0.0-8.0) % Eos % (Auto) 0.1 (0.0-4.0) % Baso % (Auto) 0.9 (0.0-2.0) % Neut # (Auto) 13.7 H (1.8-7.7) th/mm3 Lymph # (Auto) 1.8 (1.0-4.8) th/mm3 [place] # (Auto) 1.2 H (0.0-0.9) th/mm3 Eos # (Auto) 0.0 (0.0-0.4) th/mm3 Baso # (Auto) 0.2 (0.0-0.2) th/mm3 WBC Differential . Differential Comment Auto diff final PT 20.8 H (9.8-11.6) sec INR 2.1 Ratio Sodium 128 L (136-145) meq/L Potassium 5.0 (3.5-5.1) meq/L Chloride 95 L (98-107) meq/L Carbon Dioxide 22.7 (21.0-32.0) meq/L Anion Gap 10 (5-15) meq/L BUN 18 (7-18) mg/dL Creatinine 0.96 (0.60-1.30) mg/dL Estimated GFR 82 L (>89) mL/min Random Glucose 127 H (74-106) mg/dL Calcium 8.9 (8.5-10.1) mg/dL Total Bilirubin 7.3 H (0.2-1.0) mg/dL AST 380 H (15-37) U/L ALT 75 (12-78) U/L Alkaline Phosphatase 656 H (45-117) U/L Ammonia (11-32) mcmol/L Total Protein 8.8 H (6.4-8.2) g/dL Albumin 2.2 L (3.4-5.0) g/dL Lipase 367 (73-393) U/L 05/11/18 Range/Units 17:40 WBC (4.0-11.0) th/mm3 RBC (4.50-5.90) mil/mm3 Hgb (13.0-17.0) gm/dL Hct (39.0-51.0) % MCV (80.0-100.0) fL MCH (27.0-34.0) pg MCHC (32.0-36.0) % RDW (11.6-17.2) % Plt Count (150-450) th/mm3 MPV (7.0-11.0) fL Neut % (Auto) (16.0-70.0) % Lymph % (Auto) (9.0-44.0) % [place] % (Auto) (0.0-8.0) % Eos % (Auto) (0.0-4.0) % Baso % (Auto) (0.0-2.0) % Neut # (Auto) (1.8-7.7) th/mm3 Lymph # (Auto) (1.0-4.8) th/mm3 [place] # (Auto) (0.0-0.9) th/mm3 Eos # (Auto) (0.0-0.4) th/mm3 Baso # (Auto) (0.0-0.2) th/mm3 WBC Differential Differential Comment PT (9.8-11.6) sec INR Ratio Sodium (136-145) meq/L Potassium (3.5-5.1) meq/L Chloride (98-107) meq/L Carbon Dioxide (21.0-32.0) meq/L Anion Gap (5-15) meq/L BUN (7-18) mg/dL Creatinine (0.60-1.30) mg/dL Estimated GFR (>89) mL/min Random Glucose (74-106) mg/dL Calcium (8.5-10.1) mg/dL Total Bilirubin (0.2-1.0) mg/dL AST (15-37) U/L ALT (12-78) U/L Alkaline Phosphatase (45-117) U/L Ammonia 56 H (11-32) mcmol/L Total Protein (6.4-8.2) g/dL Albumin (3.4-5.0) g/dL Lipase (73-393) U/L Discharge Plan Discharge Disposition Patient Disposition: 30 Still Patient Discharge Details Diagnosis: Ascites, Abdominal pain Physicians Team ED Provider: Amanda Torres Primary Care Provider: Zac Marie Rxs /Orders / Referrals /Forms Prescriptions: No Action furosemide [Lasix] 20 mg tablet 20 mg PO DAILY Qty: 30 RF: 0 propranolol 20 mg tablet 20 mg PO BID Qty: 60 RF: 0 spironolactone 50 mg tablet 50 mg PO DAILY Qty: 30 RF: 0 rivaroxaban [Xarelto] 20 mg Tablet 20 mg PO DAILY Qty: 30 RF: 0 Status ED Status: Admitted Patient
[2018-05-11 18:17] LABS: Baso # (Auto) 0.2 th/mm3 (0.0-0.2); Baso % (Auto) 0.9 % (0.0-2.0); Eos % (Auto) 0.1 % (0.0-4.0); Hematocrit 42.9 % (39.0-51.0); Hemoglobin 14.5 gm/dL (13.0-17.0); Lymph # (Auto) 1.8 th/mm3 (1.0-4.8); Lymph % (Auto) 10.8 % (9.0-44.0); Mean Corpuscular HGB Conc 33.7 % (32.0-36.0); Mean Corpuscular Hemoglobin 32.4 pg (27.0-34.0); Mean Platelet Volume 8.4 fL (7.0-11.0); Mono # (Auto) 1.2 th/mm3 (0.0-0.9); Mono % (Auto) 6.9 % (0.0-8.0); Neut # (Auto) 13.7 th/mm3 (1.8-7.7); Neut % (Auto) 81.3 % (16.0-70.0); Platelet Count 332 th/mm3 (150-450); Red Blood Count 4.47 mil/mm3 (4.50-5.90); Red Cell Distribution Width 15.4 % (11.6-17.2); White Blood Count 16.9 th/mm3 (4.0-11.0)
[2018-05-11 18:28] LABS: INR 2.1 Ratio; Prothrombin Time 20.8 sec (9.8-11.6)
[2018-05-11] MEDS: Pantoprazole Inj 80 MG in Sodium Chlor 0.9% Inj 100 ML IV.CONT SCH (18:29)
[2018-05-11 18:32] LABS: Alanine Aminotransferase 75 U/L (12-78); Alkaline Phosphatase 656 U/L (45-117); Total Protein 8.8 g/dL (6.4-8.2)
[2018-05-11 18:33] LABS: Albumin 2.2 g/dL (3.4-5.0); Anion Gap 10 meq/L (5-15); Aspartate Aminotransferase 380 U/L (15-37); Blood Urea Nitrogen 18 mg/dL (7-18); Calcium 8.9 mg/dL (8.5-10.1); Carbon Dioxide 22.7 meq/L (21.0-32.0); Chloride 95 meq/L (98-107); Glomerular Filtration Rate 82 mL/min (>89); Glucose,Random 127 mg/dL (74-106); Lipase 367 U/L (73-393); Sodium 128 meq/L (136-145)
[2018-05-11] MEDS: Octreotide Inj 500 MCG in Sodium Chlor 0.9% Inj 500 ML IV.CONT SCH (19:03)
--- NOTE | 2018-05-11 20:17 | P.HP ---
History of Present Illness Service: [facility] Primary Care Physician: Zac Marie MD History of Present Illness: 52-year-old male with a past medical history significant for cirrhosis, obstructive jaundice, portal hypertension, ascites and hepatitis C presents to the emergency department for evaluation of abdominal swelling and shortness of breath times 6 days. The patient's last paracentesis was 2 weeks ago. His track mechanic is Dr. Muñiz. He denies any chest pain. He endorses intermittent bloody stools for the past week. He denies any chest pain no nausea/vomiting. No fever/chills. No lateralizing signs/symptoms. Inpatient Certification: I certify that the inpatient services were ordered in accordance with Medicare regulations governing the order. This includes certification that hospital inpatient services are reasonable and necessary and in the case of services not specified as inpatient-only under 42 CFR 419.22(n), that they are appropriately provided as inpatient services in accordance to with the 2-midnight benchmark under 43 CFR 412.3(e) Estimated Total Length of Stay (Days): 2 Plans for Post Hospital Care: Not yet determined Review of Systems All other systems reviewed negative except as stated [facility] - History History Provided By: Patient, Family Member - Medical History Medical History: Medical History (Last Reviewed 05/11/18 @ 20:13 by Ariella Chacon MD) Hepatitis C antibody positive in blood (Acute) Hx of intermediate use of blood thinners (Acute) Portal hypertension (Acute) Obstructive jaundice (Acute) Elevated liver enzymes (Acute) Portal vein thrombosis (Acute) Cirrhosis (Acute) Liver cancer - Surgical History Surgical History: Surgical History (Last Reviewed 05/11/18 @ 20:13 by Ariella Chacon MD) History of hernia surgery (Acute) - Family History Family History: Family History (Last Reviewed 05/11/18 @ 20:13 by Ariella Chacon MD) Other Unknown family medical history - Tobacco History Second Hand Smoke Exposure: No Tobacco Use In Past 30 Days: Yes Smoking Status: Current some day smoker Tobacco Type: Cigarettes - Alcohol History How Often Do You Have a Drink Containing Alcohol: Monthly or less - Substance Use History Substance History: No History of Abuse - Travel History History of Recent Travel: No - Immunization History Tetanus Immunization: Unsure Hx Influenza Vaccine This Season: No Medications and Allergies Active Medications: Active Medications Furosemide (Lasix) 20 mg PO DAILY [place] Pantoprazole Sodium 80 mg/ (Sodium Chloride) 100 mls @ 10 mls/hr IV.CONT CONT [place] Last Admin: 05/11/18 18:29 Dose: 10 mls/hr Octreotide Acetate 500 mcg/ (Sodium Chloride) 500.5 mls @ 25.02 mls/hr IV.CONT .Q20H1M [place] Last Admin: 05/11/18 19:03 Dose: 25 mcg/hr, 25.02 mls/hr Propranolol HCl (Inderal) 20 mg PO BID [facility] Sodium Chloride (Ns Flush) 2 ml IV.FLUSH PRN PRN PRN Reason: FLUSH AFTER USING IV ACCESS Spironolactone (Aldactone) 50 mg PO DAILY [place] Allergies Allergy/AdvReac Type Severity Reaction Status Date / Time No Known Allergies AdvReac Unknown Uncoded 01/23/18 10:43 Exam Vital signs: Vital Signs 05/11/18 15:38 05/11/18 15:40 05/11/18 17:20 Temperature 97.4 F L Pulse Rate 102 H 80 Respiratory Rate 25 H 16 Blood Pressure 148/104 H 145/96 H Pulse Oximetry 98 98 95 05/11/18 18:43 05/11/18 19:30 Temperature Pulse Rate 92 H 86 Respiratory Rate 17 18 Blood Pressure 133/104 H 130/100 H Pulse Oximetry 95 96 Intake & Output 05/11/18 05/11/18 05/12/18 06:59 18:59 06:59 Intake Total 35 / 35 Balance 35 / 35 Weight 81.647 kg Intake: IV 35 / 35 Protonix Inj 80 MG In NS Inj 35 35 / 35 ML @ 420 mls/hr IV.SIG BOLUS ONE Rx#:[id number] Narrative: Gen.: No acute distress Head: Normocephalic. Atraumatic. EENT: Pupils equal round and reactive to light. Nose without drainage. Airway intact. Throat without injection. Cardiovascular: Regular rate and rhythm. No murmurs, rubs or gallops. Respiratory: Lungs clear to auscultation bilaterally. No wheezes or rhonchi. Abdomen: No peritoneal signs. Positive ascites. Positive distention. Positive fluid wave. Tender to palpation. Musculoskeletal: No gross deformities. No edema. Skin: No obvious rashes or erythema. Neuro: Sensory and motor grossly intact. Cranial nerves II through XII grossly intact. Results - Labs CBC & Chem 7: 05/11/18 17:40 05/11/18 17:40 Labs: Laboratory Results - last 24 hr 05/11/18 05/11/18 05/11/18 17:40 17:40 17:40 WBC 16.9 H RBC 4.47 L Hgb 14.5 Hct 42.9 MCV 96.0 MCH 32.4 MCHC 33.7 RDW 15.4 Plt Count 332 MPV 8.4 Neut % (Auto) 81.3 H Lymph % (Auto) 10.8 [place] % (Auto) 6.9 Eos % (Auto) 0.1 Baso % (Auto) 0.9 Neut # (Auto) 13.7 H Lymph # (Auto) 1.8 [place] # (Auto) 1.2 H Eos # (Auto) 0.0 Baso # (Auto) 0.2 WBC Differential . Differential Comment Auto diff final PT 20.8 H INR 2.1 Sodium 128 L Potassium 5.0 Chloride 95 L Carbon Dioxide 22.7 Anion Gap 10 BUN 18 Creatinine 0.96 Estimated GFR 82 L Random Glucose 127 H Calcium 8.9 Total Bilirubin 7.3 H AST 380 H ALT 75 Alkaline Phosphatase 656 H Ammonia Total Protein 8.8 H Albumin 2.2 L Lipase 367 Blood Type Antibody Screen 05/11/18 05/11/18 17:40 17:50 WBC RBC Hgb Hct MCV MCH MCHC RDW Plt Count MPV Neut % (Auto) Lymph % (Auto) [place] % (Auto) Eos % (Auto) Baso % (Auto) Neut # (Auto) Lymph # (Auto) [place] # (Auto) Eos # (Auto) Baso # (Auto) WBC Differential Differential Comment PT INR Sodium Potassium Chloride Carbon Dioxide Anion Gap BUN Creatinine Estimated GFR Random Glucose Calcium Total Bilirubin AST ALT Alkaline Phosphatase Ammonia 56 H Total Protein Albumin Lipase Blood Type O Positive Antibody Screen Negative Caprini VTE Risk Assessment Caprini VTE Risk Assessment: No/Low Risk (score <= 1) Caprini Risk Assessment Model: Point Value = 1 Point Value = 2 Point Value = 3 Point Value = 5 Age 41-60 Minor surgery BMI > 25 kg/m2 Swollen legs Varicose veins or History of unexplained or recurrent spontaneous Oral contraceptives or hormone replacement Sepsis (< 1 month) Serious lung disease, including pneumonia (< 1 month) Abnormal pulmonary function Acute myocardial infarction Congestive heart failure (< 1 month) History of inflammatory bowel disease Medical patient at bed rest Age 61-74 Arthroscopic surgery Major open surgery (> 45 min) Laparoscopic surgery (> 45 min) Malignancy Confined to bed (> 72 hours) Immobilizing plaster cast Central venous access Age >= 75 History of VTE Family history of VTE Factor V Leiden Prothrombin [id number] Lupus anticoagulant Anticardiolipin antibodies Elevated serum homocysteine Heparin-induced thrombocytopenia Other congenital or acquired thrombophilia Stroke (< 1 month) Elective arthroplasty Hip, pelvis, or leg fracture Acute spinal cord injury (< 1 month) Prophylaxis Regimen: Total Risk Factor Score Risk Level Prophylaxis Regimen 0-1 Low Early ambulation 2 Moderate Order ONE of the following: *Sequential Compression Device (SCD) *Heparin 5000 units SQ BID 3-4 Higher Order ONE of the following medications: *Heparin 5000 units SQ TID *Enoxaparin/Lovenox 40 mg SQ daily (WT < 150 kg, CrCl > 30 mL/min) *Enoxaparin/Lovenox 30 mg SQ daily (WT < 150 kg, CrCl > 10-29 mL/min) *Enoxaparin/Lovenox 30 mg SQ BID (WT < 150 kg, CrCl > 30 mL/min) AND/OR *Sequential Compression Device (SCD) 5 or more Highest Order ONE of the following medications: *Heparin 5000 units SQ TID (Preferred with Epidurals) *Enoxaparin/Lovenox 40 mg SQ daily (WT < 150 kg, CrCl > 30 mL/min) *Enoxaparin/Lovenox 30 mg SQ daily (WT < 150 kg, CrCl > 10-29 mL/min) *Enoxaparin/Lovenox 30 mg SQ BID (WT < 150 kg, CrCl > 30 mL/min) AND *Sequential Compression Device (SCD) Assessment and Plan - Plan Assessment/plan: 1. Lower GI bleed IV Protonix/octreotide Gastroenterology consulted, appreciate recommendations Serial H&H Transfuse as needed 2. Hepatitis C cirrhosis/obstructive jaundice/ascites Paracentesis ordered Continue outpatient follow-up Continue propanolol, Lasix, Spironolactone FEN N.p.o. Electrolytes: Monitor and replete as needed
[2018-05-11 21:12] LABS: Bilirubin,Urine Moderate (Negative); Clarity,Urine Cloudy (Clear); Color,Urine Amber (Yellw/Straw); Glucose,Urine (UA) 50 mg/dL (Negative); Hyaline Casts,Urine 26 /lpf (0-3); Leukocyte Esterase,Urine Negative (Negative); Mucus,Urine Moderate /lpf (Occasional); Nitrite,Urine Negative (Negative); Specific Gravity,Urine 1.024 (1.002-1.035); Squamous Epithelial Cell,Urine <1 /hpf (0-5); Urobilinogen,Urine 4 or Greater mg/dL (Less than 2)
[2018-05-11 21:14] LABS: Ictotest,Urine Positive (Negative)
[2018-05-11] MEDS: Morphine Sulfate Inj 2 MG/ML Vial IV.PUSH PRN (22:21)
[2018-05-12 00:51] LABS: Hematocrit 40.5 % (39.0-51.0); Hemoglobin 13.7 gm/dL (13.0-17.0)
[2018-05-12] MEDS: Morphine Sulfate Inj 2 MG/ML Vial IV.PUSH PRN ×7 (01:27→23:34)
[2018-05-12] MEDS: Pantoprazole Inj 80 MG in Sodium Chlor 0.9% Inj 100 ML IV.CONT SCH (05:22)
[2018-05-12 07:25] LABS: Hematocrit 40.2 % (39.0-51.0); Hemoglobin 13.7 gm/dL (13.0-17.0)
[2018-05-12] MEDS ORDERED: Spironolactone 50 MG Tablet PO SCH ×2 (09:00→17:54)
[2018-05-12] MEDS ORDERED: Furosemide 20 MG Tablet PO SCH (09:00)
--- NOTE | 2018-05-12 09:37 | P.PN ---
Subjective Interval history: awake and alert, no complains of pain mild abodminal bloating sensation sttes has been having bright toan blood mixed with dark brown stools Physical Exam Vital signs: Vital Signs 05/11/18 15:38 05/11/18 15:40 05/11/18 17:20 Temperature 97.4 F L Pulse Rate 102 H 80 Respiratory Rate 25 H 16 Blood Pressure 148/104 H 145/96 H Pulse Oximetry 98 98 95 05/11/18 18:43 05/11/18 19:30 05/11/18 20:24 Temperature Pulse Rate 92 H 86 86 Respiratory Rate 17 18 18 Blood Pressure 133/104 H 130/100 H 135/82 Pulse Oximetry 95 96 96 05/12/18 00:30 05/12/18 02:50 05/12/18 04:00 Temperature 98.5 F 98.3 F Pulse Rate 78 83 Respiratory Rate 16 18 18 Blood Pressure 129/81 121/90 Pulse Oximetry 96 94 L Intake & Output 05/11/18 05/12/18 05/12/18 18:59 06:59 18:59 Intake Total 35 / 35 150 / 150 Output Total 300 / 300 Balance 35 / 35 -150 / -150 Weight 81.647 kg 79.379 kg Intake: IV 35 / 35 100 / 100 Protonix Inj 80 MG In NS Inj 100 / 100 100 ML @ 10 mls/hr IV.CONT CONT [place] Rx#:[id number] Protonix Inj 80 MG In NS Inj 35 35 / 35 ML @ 420 mls/hr IV.SIG BOLUS ONE Rx#:[id number] Oral 50 / 50 Output: Urine 300 / 300 Other: # Voids 2 Date of Last Bowel Movement 05/11/18 Weight On Admission 79.379 kg Narrative: Gen.: No acute distress Head: Normocephalic. Atraumatic. EENT:icteric Pupils equal round and reactive to light. Nose without drainage. Airway intact. Throat without injection. Cardiovascular: Regular rate and rhythm. No murmurs, rubs or gallops. Respiratory: Lungs clear to auscultation bilaterally. No wheezes or rhonchi. Abdomen: No peritoneal signs. Positive ascites. Positive distention. Positive fluid wave. non tender, no guarding Musculoskeletal: No gross deformities. No edema. Skin: No obvious rashes or erythema. Neuro: Sensory and motor grossly intact. Cranial nerves II through XII grossly intact. Results - Labs CBC & Chem 7: 05/12/18 19:30 05/11/18 17:40 Laboratory Results - last 24 hr 05/11/18 05/11/18 05/11/18 17:40 17:40 17:40 WBC 16.9 H RBC 4.47 L Hgb 14.5 Hct 42.9 MCV 96.0 MCH 32.4 MCHC 33.7 RDW 15.4 Plt Count 332 MPV 8.4 Neut % (Auto) 81.3 H Lymph % (Auto) 10.8 Desha % (Auto) 6.9 Eos % (Auto) 0.1 Baso % (Auto) 0.9 Neut # (Auto) 13.7 H Lymph # (Auto) 1.8 Desha # (Auto) 1.2 H Eos # (Auto) 0.0 Baso # (Auto) 0.2 WBC Differential . Differential Comment Auto diff final PT 20.8 H INR 2.1 Sodium 128 L Potassium 5.0 Chloride 95 L Carbon Dioxide 22.7 Anion Gap 10 BUN 18 Creatinine 0.96 Estimated GFR 82 L Random Glucose 127 H Calcium 8.9 Total Bilirubin 7.3 H AST 380 H ALT 75 Alkaline Phosphatase 656 H Ammonia Total Protein 8.8 H Albumin 2.2 L Lipase 367 Urine Color Urine Clarity Urine pH Ur Specific [place] Urine Protein Urine Glucose (UA) Urine Ketones Urine Occult Blood Urine Nitrate Urine Bilirubin Urine Ictotest Urine Urobilinogen Ur Leukocyte Esterase Urine RBC Urine WBC Ur Squamous Epith Cells Hyaline Casts Granular Casts Urine Mucus Micro UA Comment Ur Microscopic Review Urine Culture Comments Blood Type Antibody Screen 05/11/18 05/11/18 05/11/18 17:40 17:50 20:22 WBC RBC Hgb Hct MCV MCH MCHC RDW Plt Count MPV Neut % (Auto) Lymph % (Auto) Desha % (Auto) Eos % (Auto) Baso % (Auto) Neut # (Auto) Lymph # (Auto) Desha # (Auto) Eos # (Auto) Baso # (Auto) WBC Differential Differential Comment PT INR Sodium Potassium Chloride Carbon Dioxide Anion Gap BUN Creatinine Estimated GFR Random Glucose Calcium Total Bilirubin AST ALT Alkaline Phosphatase Ammonia 56 H Total Protein Albumin Lipase Urine Color Carol Urine Clarity Cloudy H Urine pH 5.0 Ur Specific [place] 1.024 Urine Protein 30 H Urine Glucose (UA) 50 Urine Ketones Negative Urine Occult Blood Negative Urine Nitrate Negative Urine Bilirubin Moderate H Urine Ictotest Positive H Urine Urobilinogen 4 or greater Ur Leukocyte Esterase Negative Urine RBC Less than 1 Urine WBC 4 Ur Squamous Epith Cells <1 Hyaline Casts 26 Granular Casts 60 Urine Mucus Moderate H Micro UA Comment Culture not ind Ur Microscopic Review Not Reportable Urine Culture Comments Culture not ind Blood Type O Positive Antibody Screen Negative 05/12/18 05/12/18 00:11 06:21 WBC RBC Hgb 13.7 13.7 Hct 40.5 40.2 MCV MCH MCHC RDW Plt Count MPV Neut % (Auto) Lymph % (Auto) Desha % (Auto) Eos % (Auto) Baso % (Auto) Neut # (Auto) Lymph # (Auto) Desha # (Auto) Eos # (Auto) Baso # (Auto) WBC Differential Differential Comment PT INR Sodium Potassium Chloride Carbon Dioxide Anion Gap BUN Creatinine Estimated GFR Random Glucose Calcium Total Bilirubin AST ALT Alkaline Phosphatase Ammonia Total Protein Albumin Lipase Urine Color Urine Clarity Urine pH Ur Specific [place] Urine Protein Urine Glucose (UA) Urine Ketones Urine Occult Blood Urine Nitrate Urine Bilirubin Urine Ictotest Urine Urobilinogen Ur Leukocyte Esterase Urine RBC Urine WBC Ur Squamous Epith Cells Hyaline Casts Granular Casts Urine Mucus Micro UA Comment Ur Microscopic Review Urine Culture Comments Blood Type Antibody Screen Assessment and Plan - Plan 52 years old male Lower GI bleed IV Protonix/octreotide H and H stable Gastroenterology consulted, appreciate recommendations Serial H&H Transfuse as needed Hepatitis C cirrhosis/obstructive jaundice Recurrent ascites 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 Recheck INR now Continue propanolol, Lasix, Spironolactone REcent diagnosis of cholangiocarcinoma per patient unable to go to Oncology for ff up - no insurance was suppose to ff up with Dr. Tboias - we will consult in house- per patient now has insurance FEN N.p.o. Electrolytes: Monitor and replete as needed
--- NOTE | 2018-05-12 10:49 | P.CONGI ---
History of Present Illness Consult date: 05/12/18 Requesting physician: Dorys Muñoz Consult reason: Cirrhosis with Lower GI bleed and ascites Chief complaint: Ascites, Abdominal Pain, Rectal Bleeding History of Present Illness: Mr. delgado is a 52-year-old male with a significant past medical history for cholangiocarcinoma, cirrhosis, obstructive jaundice, portal hypertension, ascites and hepatitis C. Patient presented to the emergency room on 05/11/2018 for complaint of increased abdominal swelling and shortness of breath for 2-5 days per patient. Patient denies chest pain, fever or chills. He endorses increasing nausea over the last 2 days. States he has noted bright red blood in his stools, and toilet water and on toilet tissue after each BM. Patient denies diarrhea or constipation , states stools are soft and denies straining. Onset of noticing blood 2-3 days per patient. Patient denies black tarry stools and in turn states stools are dark brown. Of note, patient states he started taking Xarelto 2 weeks ago as directed for portal vein thrombosis. 05/12/2018 hemoglobin 13.7 hematocrit 40.2 most recent INR 2.1 platelet count 332. Patient states increasing abdominal girth affects his activity as well as causing increased shortness of breath with difficulty taking deep breaths. Per patient last paracentesis done 2 weeks ago. Per report noted on 05/04/2018 ultrasound-guided paracentesis and drained total volume of 8200 cc of clear, yellow fluid was removed. Fluid was sent to lab for ordered studies. Patient reports he takes spironolactone and Lasix as directed. Patient does state that he has had difficulty with following up post discharge due to lack of insurance but states now that he is currently covered by medically needy insurance. Patient noted to have history of hepatitis C and denies any previous treatment for this. Patient denies IV drug use blood transfusions in the past or tattoos. Patient denies EtOH use but does state that he smokes marijuana and cigarettes 1 pack over a 4-day period to help combat nausea and discomfort. This practice has been consulted to evaluate patient's report of bright red blood in stools as well as continued ascites. Patient denies ever having had a colonoscopy and states that he would be agreeable to having one during this admission. Last EGD done in March 2018 revealed 1 column of grade 1 esophageal varices, mild to moderate portal gastropathy, and duodenitis. I discussed patient's diagnosis of cholangiocarcinoma with patient as he states he is anxious to speak with oncology regarding treatment options and prognosis. 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 (Acute) Portal hypertension (Acute) Obstructive jaundice (Acute) Elevated liver enzymes (Acute) Portal vein thrombosis (Acute) Cirrhosis (Acute) Liver cancer - Surgical History Surgical History: Surgical History (Last Reviewed 05/11/18 @ 20:13 by Ariella Chacon MD) History of hernia surgery (Acute) - Family History Family History: Family History (Last Reviewed 05/11/18 @ 20:13 by Ariella Chacon MD) Other Unknown family medical history - Tobacco History Second Hand Smoke Exposure: Yes Tobacco Use In Past 30 Days: Yes Smoking Status: Current some day smoker Tobacco Type: Cigarettes - Alcohol History How Often Do You Have a Drink Containing Alcohol: Never - Substance Use History Substance History: No History of Abuse - Travel History History of Recent Travel: No - Immunization History Tetanus Immunization: Unsure Hx Influenza Vaccine This Season: No <Linda Curtis - Last Filed: 05/12/18 16:54> - Medical History Medical History: Medical History (Last Reviewed 05/11/18 @ 20:13 by Ariella Chacon MD) Hepatitis C antibody positive in blood (Acute) 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) Portal hypertension (Acute) Obstructive jaundice (Acute) Elevated liver enzymes (Acute) Portal vein thrombosis (Acute) Cirrhosis (Acute) Liver cancer - Surgical History Surgical History: Surgical History (Last Reviewed 05/11/18 @ 20:13 by Ariella Chacon MD) History of hernia surgery (Acute) - Family History Family History: Family History (Last Reviewed 05/11/18 @ 20:13 by Ariella Chacon MD) Other Unknown family medical history <Abrahan Muñiz - Last Filed: 05/12/18 17:51> Medications and Allergies Active Medications: Active Medications Furosemide (Lasix) 20 mg PO DAILY [facility] Last Admin: 05/12/18 08:36 Dose: 20 mg Pantoprazole Sodium 80 mg/ (Sodium Chloride) 100 mls @ 10 mls/hr IV.CONT CONT [facility] Last Admin: 05/12/18 05:22 Dose: 10 mls/hr Octreotide Acetate 500 mcg/ (Sodium Chloride) 500.5 mls @ 25.02 mls/hr IV.CONT .Q20H1M [facility] Last Admin: 05/11/18 19:03 Dose: 25 mcg/hr, 25.02 mls/hr Morphine Sulfate (Morphine Inj) 2 mg IV.PUSH Q3H PRN PRN Reason: pain > 4 Last Admin: 05/12/18 08:36 Dose: 2 mg Ondansetron HCl (Zofran Inj) 4 mg IV.PUSH Q6H PRN PRN Reason: NAUSEA OR VOMITING Last Admin: 05/12/18 04:29 Dose: 4 mg Propranolol HCl (Inderal) 20 mg PO BID [facility] Last Admin: 05/12/18 08:36 Dose: 20 mg Sodium Chloride (Ns Flush) 2 ml IV.FLUSH PRN PRN PRN Reason: FLUSH AFTER USING IV ACCESS Spironolactone (Aldactone) 50 mg PO DAILY [facility] Last Admin: 05/12/18 08:36 Dose: 50 mg <Linda Curtis - Last Filed: 05/12/18 16:54> Active Medications: Active Medications Furosemide (Lasix) 20 mg PO DAILY [facility] Last Admin: 05/12/18 08:36 Dose: 20 mg Pantoprazole Sodium 80 mg/ (Sodium Chloride) 100 mls @ 10 mls/hr IV.CONT CONT [facility] Last Admin: 05/12/18 05:22 Dose: 10 mls/hr Octreotide Acetate 500 mcg/ (Sodium Chloride) 500.5 mls @ 25.02 mls/hr IV.CONT .Q20H1M [facility] Last Admin: 05/12/18 17:02 Dose: 25 mcg/hr, 25.02 mls/hr Morphine Sulfate (Morphine Inj) 2 mg IV.PUSH Q3H PRN PRN Reason: pain > 4 Last Admin: 05/12/18 17:02 Dose: 2 mg Ondansetron HCl (Zofran Inj) 4 mg IV.PUSH Q6H PRN PRN Reason: NAUSEA OR VOMITING Last Admin: 05/12/18 04:29 Dose: 4 mg Propranolol HCl (Inderal) 20 mg PO BID [facility] Last Admin: 05/12/18 08:36 Dose: 20 mg Sodium Chloride (Ns Flush) 2 ml IV.FLUSH PRN PRN PRN Reason: FLUSH AFTER USING IV ACCESS Spironolactone (Aldactone) 50 mg PO DAILY [facility] Last Admin: 05/12/18 08:36 Dose: 50 mg <Abrahan Muñiz E - Last Filed: 05/12/18 17:51> Allergies Allergy/AdvReac Type Severity Reaction Status Date / Time No Known Allergies AdvReac Unknown Uncoded 01/23/18 10:43 Exam Vital signs: Vital Signs 05/11/18 15:38 05/11/18 15:40 05/11/18 17:20 Temperature 97.4 F L Pulse Rate 102 H 80 Respiratory Rate 25 H 16 Blood Pressure 148/104 H 145/96 H Pulse Oximetry 98 98 95 05/11/18 18:43 05/11/18 19:30 05/11/18 20:24 Temperature Pulse Rate 92 H 86 86 Respiratory Rate 17 18 18 Blood Pressure 133/104 H 130/100 H 135/82 Pulse Oximetry 95 96 96 05/12/18 00:30 05/12/18 02:50 05/12/18 04:00 Temperature 98.5 F 98.3 F Pulse Rate 78 83 Respiratory Rate 16 18 18 Blood Pressure 129/81 121/90 Pulse Oximetry 96 94 L Intake & Output 05/11/18 05/12/18 05/12/18 18:59 06:59 18:59 Intake Total 35 / 35 150 / 150 Output Total 300 / 300 Balance 35 / 35 -150 / -150 Weight 81.647 kg 79.379 kg Intake: IV 35 / 35 100 / 100 Protonix Inj 80 MG In NS Inj 100 / 100 100 ML @ 10 mls/hr IV.CONT CONT [facility] Rx#:[id number] Protonix Inj 80 MG In NS Inj 35 35 / 35 ML @ 420 mls/hr IV.SIG BOLUS ONE Rx#:[id number] Oral 50 / 50 Output: Urine 300 / 300 Other: # Voids 2 Date of Last Bowel Movement 05/11/18 Weight On Admission 79.379 kg - Constitutional no acute distress, chronically ill appearing - Routine HEENT Exam Head: Present: normocephalic Eye: Present: conjunctival icterus - Routine Neck Exam Present: supple - Routine Chest/Breast/Axilla Exam Chest wall: Absent: tenderness - Routine Respiratory Exam Present: CTA bilaterally. Absent: accessory muscle use - Routine Cardiovascular Exam Present: RRR - Routine Abdominal Exam Present: soft, normoactive bowel sounds, tenderness, distended. Absent: guarding, firm Comments: generalized tenderness on exam - Routine Extremities Exam Present: full ROM, pulses intact. Absent: cyanosis, clubbing, edema - Routine Skin Exam Present: dry, warm, jaundice - Routine Neurological Exam Present: alert, oriented X3 - Routine Psychiatric Exam Present: normal affect, cooperative <CurtisLinda - Last Filed: 05/12/18 16:54> Vital signs: Vital Signs 05/11/18 18:43 05/11/18 19:30 05/11/18 20:24 Temperature Pulse Rate 92 H 86 86 Respiratory Rate 17 18 18 Blood Pressure 133/104 H 130/100 H 135/82 Pulse Oximetry 95 96 96 05/12/18 00:30 05/12/18 02:50 05/12/18 04:00 Temperature 98.5 F 98.3 F Pulse Rate 78 83 Respiratory Rate 16 18 18 Blood Pressure 129/81 121/90 Pulse Oximetry 96 94 L 05/12/18 08:00 05/12/18 08:40 05/12/18 12:00 Temperature 97.9 F 97.6 F Pulse Rate 79 77 Respiratory Rate 18 17 18 Blood Pressure 136/96 H 126/89 Pulse Oximetry 96 95 05/12/18 12:35 05/12/18 14:59 Temperature 97.9 F Pulse Rate 72 Respiratory Rate 18 18 Blood Pressure 114/81 Pulse Oximetry 95 Intake & Output 05/11/18 05/12/18 05/12/18 18:59 06:59 18:59 Intake Total 35 / 35 150 / 150 500.5 / 500.5 Output Total 300 / 300 Balance 35 / 35 -150 / -150 500.5 / 500.5 Weight 81.647 kg 79.379 kg Intake: IV 35 / 35 100 / 100 500.5 / 500.5 SandoSTATIN Inj 500 MCG In NS 500.5 / 500.5 Inj 500 ML @ 25 MCG/HR 25.02 mls/hr IV.CONT .Q20H1M [facility] Rx#: [id number] Protonix Inj 80 MG In NS Inj 100 / 100 100 ML @ 10 mls/hr IV.CONT CONT [facility] Rx#:[id number] Protonix Inj 80 MG In NS Inj 35 35 / 35 ML @ 420 mls/hr IV.SIG BOLUS ONE Rx#:[id number] Oral 50 / 50 Output: Urine 300 / 300 Other: # Voids 2 Date of Last Bowel Movement 05/11/18 Weight On Admission 79.379 kg <Abrahan Muñiz - Last Filed: 05/12/18 17:51> Results - Labs CBC & Chem 7: 05/12/18 14:32 05/11/18 17:40 Labs: Laboratory Results - last 24 hr 05/11/18 05/11/18 05/11/18 17:40 17:40 17:40 WBC 16.9 H RBC 4.47 L Hgb 14.5 Hct 42.9 MCV 96.0 MCH 32.4 MCHC 33.7 RDW 15.4 Plt Count 332 MPV 8.4 Neut % (Auto) 81.3 H Lymph % (Auto) 10.8 [place] % (Auto) 6.9 Eos % (Auto) 0.1 Baso % (Auto) 0.9 Neut # (Auto) 13.7 H Lymph # (Auto) 1.8 [place] # (Auto) 1.2 H Eos # (Auto) 0.0 Baso # (Auto) 0.2 WBC Differential . Differential Comment Auto diff final PT 20.8 H INR 2.1 Sodium 128 L Potassium 5.0 Chloride 95 L Carbon Dioxide 22.7 Anion Gap 10 BUN 18 Creatinine 0.96 Estimated GFR 82 L Random Glucose 127 H Calcium 8.9 Total Bilirubin 7.3 H AST 380 H ALT 75 Alkaline Phosphatase 656 H Ammonia Total Protein 8.8 H Albumin 2.2 L Lipase 367 Urine Color Urine Clarity Urine pH Ur Specific [place] Urine Protein Urine Glucose (UA) Urine Ketones Urine Occult Blood Urine Nitrate Urine Bilirubin Urine Ictotest Urine Urobilinogen Ur Leukocyte Esterase Urine RBC Urine WBC Ur Squamous Epith Cells Hyaline Casts Granular Casts Urine Mucus Micro UA Comment Ur Microscopic Review Urine Culture Comments Blood Type Antibody Screen 05/11/18 05/11/18 05/11/18 17:40 17:50 20:22 WBC RBC Hgb Hct MCV MCH MCHC RDW Plt Count MPV Neut % (Auto) Lymph % (Auto) [place] % (Auto) Eos % (Auto) Baso % (Auto) Neut # (Auto) Lymph # (Auto) [place] # (Auto) Eos # (Auto) Baso # (Auto) WBC Differential Differential Comment PT INR Sodium Potassium Chloride Carbon Dioxide Anion Gap BUN Creatinine Estimated GFR Random Glucose Calcium Total Bilirubin AST ALT Alkaline Phosphatase Ammonia 56 H Total Protein Albumin Lipase Urine Color Carol Urine Clarity Cloudy H Urine pH 5.0 Ur Specific [place] 1.024 Urine Protein 30 H Urine Glucose (UA) 50 Urine Ketones Negative Urine Occult Blood Negative Urine Nitrate Negative Urine Bilirubin Moderate H Urine Ictotest Positive H Urine Urobilinogen 4 or greater Ur Leukocyte Esterase Negative Urine RBC Less than 1 Urine WBC 4 Ur Squamous Epith Cells <1 Hyaline Casts 26 Granular Casts 60 Urine Mucus Moderate H Micro UA Comment Culture not ind Ur Microscopic Review Not Reportable Urine Culture Comments Culture not ind Blood Type O Positive Antibody Screen Negative 05/12/18 05/12/18 00:11 06:21 WBC RBC Hgb 13.7 13.7 Hct 40.5 40.2 MCV MCH MCHC RDW Plt Count MPV Neut % (Auto) Lymph % (Auto) [place] % (Auto) Eos % (Auto) Baso % (Auto) Neut # (Auto) Lymph # (Auto) [place] # (Auto) Eos # (Auto) Baso # (Auto) WBC Differential Differential Comment PT INR Sodium Potassium Chloride Carbon Dioxide Anion Gap BUN Creatinine Estimated GFR Random Glucose Calcium Total Bilirubin AST ALT Alkaline Phosphatase Ammonia Total Protein Albumin Lipase Urine Color Urine Clarity Urine pH Ur Specific [place] Urine Protein Urine Glucose (UA) Urine Ketones Urine Occult Blood Urine Nitrate Urine Bilirubin Urine Ictotest Urine Urobilinogen Ur Leukocyte Esterase Urine RBC Urine WBC Ur Squamous Epith Cells Hyaline Casts Granular Casts Urine Mucus Micro UA Comment Ur Microscopic Review Urine Culture Comments Blood Type Antibody Screen <Linda Curtis - Last Filed: 05/12/18 16:54> - Labs CBC & Chem 7: 05/12/18 14:32 05/11/18 17:40 Labs: Laboratory Results - last 24 hr 05/11/18 05/11/18 05/11/18 17:40 17:40 17:40 WBC 16.9 H RBC 4.47 L Hgb 14.5 Hct 42.9 MCV 96.0 MCH 32.4 MCHC 33.7 RDW 15.4 Plt Count 332 MPV 8.4 Neut % (Auto) 81.3 H Lymph % (Auto) 10.8 [place] % (Auto) 6.9 Eos % (Auto) 0.1 Baso % (Auto) 0.9 Neut # (Auto) 13.7 H Lymph # (Auto) 1.8 [place] # (Auto) 1.2 H Eos # (Auto) 0.0 Baso # (Auto) 0.2 WBC Differential . Differential Comment Auto diff final PT 20.8 H INR 2.1 Sodium 128 L Potassium 5.0 Chloride 95 L Carbon Dioxide 22.7 Anion Gap 10 BUN 18 Creatinine 0.96 Estimated GFR 82 L Random Glucose 127 H Calcium 8.9 Total Bilirubin 7.3 H AST 380 H ALT 75 Alkaline Phosphatase 656 H Ammonia Total Protein 8.8 H Albumin 2.2 L Lipase 367 Urine Color Urine Clarity Urine pH Ur Specific [place] Urine Protein Urine Glucose (UA) Urine Ketones Urine Occult Blood Urine Nitrate Urine Bilirubin Urine Ictotest Urine Urobilinogen Ur Leukocyte Esterase Urine RBC Urine WBC Ur Squamous Epith Cells Hyaline Casts Granular Casts Urine Mucus Micro UA Comment Ur Microscopic Review Urine Culture Comments Blood Type Antibody Screen 05/11/18 05/11/18 05/11/18 17:40 17:50 20:22 WBC RBC Hgb Hct MCV MCH MCHC RDW Plt Count MPV Neut % (Auto) Lymph % (Auto) [place] % (Auto) Eos % (Auto) Baso % (Auto) Neut # (Auto) Lymph # (Auto) [place] # (Auto) Eos # (Auto) Baso # (Auto) WBC Differential Differential Comment PT INR Sodium Potassium Chloride Carbon Dioxide Anion Gap BUN Creatinine Estimated GFR Random Glucose Calcium Total Bilirubin AST ALT Alkaline Phosphatase Ammonia 56 H Total Protein Albumin Lipase Urine Color Carol Urine Clarity Cloudy H Urine pH 5.0 Ur Specific [place] 1.024 Urine Protein 30 H Urine Glucose (UA) 50 Urine Ketones Negative Urine Occult Blood Negative Urine Nitrate Negative Urine Bilirubin Moderate H Urine Ictotest Positive H Urine Urobilinogen 4 or greater Ur Leukocyte Esterase Negative Urine RBC Less than 1 Urine WBC 4 Ur Squamous Epith Cells <1 Hyaline Casts 26 Granular Casts 60 Urine Mucus Moderate H Micro UA Comment Culture not ind Ur Microscopic Review Not Reportable Urine Culture Comments Culture not ind Blood Type O Positive Antibody Screen Negative 05/12/18 05/12/18 05/12/18 00:11 06:21 11:13 WBC RBC Hgb 13.7 13.7 Hct 40.5 40.2 MCV MCH MCHC RDW Plt Count MPV Neut % (Auto) Lymph % (Auto) [place] % (Auto) Eos % (Auto) Baso % (Auto) Neut # (Auto) Lymph # (Auto) [place] # (Auto) Eos # (Auto) Baso # (Auto) WBC Differential Differential Comment PT 17.4 H INR 1.7 Sodium Potassium Chloride Carbon Dioxide Anion Gap BUN Creatinine Estimated GFR Random Glucose Calcium Total Bilirubin AST ALT Alkaline Phosphatase Ammonia Total Protein Albumin Lipase Urine Color Urine Clarity Urine pH Ur Specific [place] Urine Protein Urine Glucose (UA) Urine Ketones Urine Occult Blood Urine Nitrate Urine Bilirubin Urine Ictotest Urine Urobilinogen Ur Leukocyte Esterase Urine RBC Urine WBC Ur Squamous Epith Cells Hyaline Casts Granular Casts Urine Mucus Micro UA Comment Ur Microscopic Review Urine Culture Comments Blood Type Antibody Screen 05/12/18 14:32 WBC 17.5 H RBC 4.09 L Hgb 13.5 Hct 39.5 MCV 96.4 MCH 32.9 MCHC 34.1 RDW 15.6 Plt Count 298 MPV 8.5 Neut % (Auto) Lymph % (Auto) [place] % (Auto) Eos % (Auto) Baso % (Auto) Neut # (Auto) Lymph # (Auto) [place] # (Auto) Eos # (Auto) Baso # (Auto) WBC Differential Differential Comment PT INR Sodium Potassium Chloride Carbon Dioxide Anion Gap BUN Creatinine Estimated GFR Random Glucose Calcium Total Bilirubin AST ALT Alkaline Phosphatase Ammonia Total Protein Albumin Lipase Urine Color Urine Clarity Urine pH Ur Specific [place] Urine Protein Urine Glucose (UA) Urine Ketones Urine Occult Blood Urine Nitrate Urine Bilirubin Urine Ictotest Urine Urobilinogen Ur Leukocyte Esterase Urine RBC Urine WBC Ur Squamous Epith Cells Hyaline Casts Granular Casts Urine Mucus Micro UA Comment Ur Microscopic Review Urine Culture Comments Blood Type Antibody Screen - Imaging Impressions Paracentesis Ultrasound 05/12/18 00:00 CONCLUSION: 1. Uncomplicated large volume therapeutic paracentesis. <Abrahan Muñiz E - Last Filed: 05/12/18 17:51> Assessment and Plan - Plan Assessment: Cirrhosis -05/11/2018 total bilirubin 7.3 AST 380 ALT 75 alkaline phosphatase 656 albumin 2.2 ammonia level 56. We will continue to monitor liver enzymes. Lower GI bleeding-patient reports no noted bleeding today but states he has noted bright red bleeding per rectum with dark brown stools for the past 4-5 days. Of note, patient states he resumed taking Xarelto as ordered for portal vein thrombosis. 05/12/2018 hemoglobin 13.7 hematocrit 40.2 and stable at this time. Ascites-patient presented to ER for this admission due to increasing abdominal girth with ascites. Patient states he has been experiencing increasing shortness of breath when supine over the last week. States difficult to take a deep breath at times. Last paracentesis done May 04, 2018 with total drainage of 8200 cc of clear yellow fluid. INR on 05/11/[address] Muñoz will check INR today. Will need INR less than 1.5 for therapeutic paracentesis. Plan: -N.p.o. for now -Continue to monitor for bleeding -Monitor labs-LFTs and coagulation studies -Monitor platelets -Continue Inderal -Continue diuretics -Avoid hepatotoxins -Repeat INR 1.7 may consider colonoscopy when INR less than 1.5 (on Xarelto) -Lactulose -Monitor for hepatic encephalopathy -Supportive care -Further recommendations to follow This patient has been seen by myself and Dr. Muñiz and this note is written on his behalf - Attending Attestation Dr. Muñiz <Linda Curtis - Last Filed: 05/12/18 16:54> - Plan Patient seen and examined Agree with above history and physical Patient presenting with worsening ascites with known underlying cirrhosis secondary to hep C and biopsy-proven cholangiocarcinoma Patient also reporting rectal bleeding but this is of very limited amount with one streak of blood on his stool and most of the blood seen on wiping his bottom which seems to suggest hemorrhoidal bleeding with no further episodes and stable hemoglobin I doubt we need to pursue a colonoscopy at this point although this may be necessary prior to transplant if he becomes eligible for that I am concerned about the fact that he has a rising alpha-fetoprotein and whether he may have additional hepatocellular carcinoma to his already biopsy proven cholangiocarcinoma but that was not seen on pathology from his last biopsy We will need to review biopsy results and review with radiology to see whether embolization is a possibility for him The patient DOES NOT need anticoagulation with regards to his portal vein thrombosis this is a natural occurrence with portal hypertension and he certainly does not need anticoagulation with his potentially high risk situation with bleeding whether from varices or hemorrhoids or other Patient will need diuretics and low-salt diet to help control his ascites Further recommendations she will depend on his hospital course <Abrahan Muñiz E - Last Filed: 05/12/18 17:51>
[2018-05-12 11:34] LABS: INR 1.7 Ratio; Prothrombin Time 17.4 sec (9.8-11.6)
[2018-05-12 15:01] LABS: Hematocrit 39.5 % (39.0-51.0); Hemoglobin 13.5 gm/dL (13.0-17.0); Mean Corpuscular HGB Conc 34.1 % (32.0-36.0); Mean Corpuscular Hemoglobin 32.9 pg (27.0-34.0); Mean Corpuscular Volume 96.4 fL (80.0-100.0); Mean Platelet Volume 8.5 fL (7.0-11.0); Platelet Count 298 th/mm3 (150-450); Red Blood Count 4.09 mil/mm3 (4.50-5.90); Red Cell Distribution Width 15.6 % (11.6-17.2); White Blood Count 17.5 th/mm3 (4.0-11.0)
--- NOTE | 2018-05-12 15:42 | MB ---
cc: Olivia Tobias MD,Dorys Campoverde MD DATE: 05/12/2018 REFERRING PHYSICIAN: Dr. Dorys Muñoz CHIEF COMPLAINT: Dr. Muñoz requests a consultation for Mr. Dias regarding cholangiocarcinoma. HISTORY OF PRESENT ILLNESS: Mr. Dias is a 52-year-old man, well known patient from a previous consultation about 2 weeks ago. He presented with progressive weight loss, intermittent abdominal pain that eventually led to a diagnosis of cirrhosis. He developed ascites. He was found to have portal vein thromboses. He apparently stopped drinking 5 years ago. During his admission to the hospital, he was found to have a chronic active hepatitis C, which was untreated. His course was complicated by tense ascites and required a paracentesis prior to his discharge last time. He has had esophageal varices, duodenitis, and a diagnosis of cholangiocarcinoma from a CT-guided biopsy of the liver 04/05/2018. Mr. Dias was attempting to follow up on an outpatient basis. He was approved for followup in clinic when he developed symptoms of decompensated liver disease and decided to come into the hospital instead. He is subsequently admitted with abdominal pain, tense ascites, and a history of lower GI bleed. In retrospect, he feels that the bleed was probably his hemorrhoids because of the pressure from the ascites. He denies any melena or bright red blood per rectum now. He denies any urinary complaint. His urine is chronically dark. He has no new symptoms, just persistent ascites and intermittent abdominal pain. PAST MEDICAL HISTORY: Unintentional weight loss, chronic active hepatitis C, untreated, portal hypertension, portal vein thromboses, cirrhosis, elevated liver function, hyperbilirubinemia/jaundice. FAMILY HISTORY: Unknown. Both parents are not available. SOCIAL HISTORY: He lives with his fiancee. He quit drinking 5 years ago. He was a heavy drinker in his 30s. He denies any illicit drug use. He is an everyday smoker. ALLERGIES: NO KNOWN DRUG ALLERGIES. CURRENT MEDICATIONS: 1. Lasix. 2. Lactulose. 3. Morphine p.r.n. 4. Octreotide. 5. Zofran. 5. Oxycodone. 6. Pantoprazole. 7. Inderal. 8. Aldactone. PHYSICAL EXAMINATION: VITAL SIGNS: Temperature 97.6, heart rate 77, respiratory rate 18, blood pressure 126/89, saturation 95%. GENERAL: Mr. Dias is a well-developed, well-nourished man who looks older than stated age. HEENT: His pupils are round, reactive to light and accommodation. Sclerae is mildly icteric. Oropharynx is dry. NECK: Supple. LUNGS: Clear anteriorly. CARDIOVASCULAR: Reveals normal rate and rhythm. ABDOMEN: Significantly distended with a fluid wave. There is diffuse tenderness. No rebound or guarding. EXTREMITIES: Lower extremities with no edema. NEUROLOGIC: Nonfocal. LABORATORY DATA: Significant for a WBC of 16.9, hemoglobin 14.5, platelet count 332. INR 1.7. BUN of 18, creatinine 0.96, total bilirubin 7.3. AST 380, ALT 75, alkaline phosphatase 656, ammonia 56, albumin is 2.2. ASSESSMENT AND PLAN: Mr. Dias is a 52-year-old man with underlying liver cirrhosis and chronic active hepatitis C. He has many symptoms related to his cirrhosis such as portal gastropathy, portal vein thromboses, duodenitis, ascites. He is symptomatic from his liver cirrhosis. He has decompensated liver disease. He is not needing a paracentesis at present. Gastroenterology is evaluating the etiology of the lower GI bleed. His hemoglobin appears to be stable. His liver functions are elevated. Unfortunately, his bilirubin continues to climb. His case was discussed with Dr. Gamble of oncologic surgery. We discussed possible surgical intervention for this patient including a resection of his cholangiocarcinoma versus referral to a transplant center for a transplant for both cirrhosis and cholangiocarcinoma. Dr. Gamble will be consulted. Defer to GI for continued management of his liver disease. Ultimately, he may benefit from treatment of his hepatitis C. Supportive care continued. His anticoagulant therapy is on hold for his paracentesis. His questions were answered to his satisfaction. I plan to see him back in followup in the oncology clinic. We will need to see if he can tolerate palliative therapy if surgical option is not available to him. MD KATERIN Cole/eros , 03:02 PM , 03:14 PM
--- NOTE | 2018-05-12 16:54 | US ---
EXAM DATE: 05/12/2018 12:00 AM EDT AGE/SEX: 52 years / Male INDICATIONS: Ascites. CLINICAL DATA: This is the patient's subsequent encounter. Patient reports that signs and symptoms h ave been present for 1 month and indicates a pain score of 2/10. MEDICAL/SURGICAL HISTORY: . Cirrhosis. Hepatitis C. Liver cancer. Anticoagulant therapy. Portal hypertension. Portal vein thrombosis. Esophageal varices. . Hernia repair. COMPARISON: [facility] – [place] PARACENTESIS ABD W/IMAGE, 05/04/2018. . FLUID: Total volume of 7,000 cc of clear, yellow fluid was removed. Fluid was discarded. Paracentesis was th erapeutic only. . . TECHNIQUE: Ultrasound guidance for abdominal paracentesis. Paracentesis. The risks, benefits, and alternatives to ultrasound guided paracentesis were explained to the patient in detail including the risk of bleeding and infection. Written and verbal informed consent was obt ained. The patient has tolerated a large volume paracenteses in the past. With the patient on the ultrasound table, ultrasound imaging was used to select the most appropriate approach for paracentesis. Crooks ing skin was prepped and draped in the usual sterile fashion and with a local anesthetic, a dermatoto my was made with an 11 blade scalpel. A 6 [place] [id number] catheter was introduced into the per itoneal cavity and fluid was collected. Post procedure scanning reveals no hematoma or other complication. The patient tolerated the procedu re well and left the ultrasound suite in stable condition. CONCLUSION: 1. Uncomplicated large volume therapeutic paracentesis. Electronically signed by: Joshua Irizarry MD 05/12/2018 4:52 PM EDT
[2018-05-12] MEDS: Octreotide Inj 500 MCG in Sodium Chlor 0.9% Inj 500 ML IV.CONT SCH (17:02)
[2018-05-12] MEDS: Phytonadione Inj 10 MG/ML Vial SQ SCH (19:14)
[2018-05-12 20:16] LABS: Hematocrit 39.5 % (39.0-51.0); Hemoglobin 13.5 gm/dL (13.0-17.0)
[2018-05-13] MEDS: Morphine Sulfate Inj 2 MG/ML Vial IV.PUSH PRN ×7 (02:32→23:34)
[2018-05-13 07:48] LABS: INR 1.5 Ratio; Prothrombin Time 15.6 sec (9.8-11.6)
[2018-05-13] MEDS: Furosemide 40 MG Tablet PO SCH (09:38)
[2018-05-13] MEDS: Phytonadione Inj 10 MG/ML Vial SQ SCH (09:39)
--- NOTE | 2018-05-13 10:00 | P.PN ---
Subjective Interval history: awake and alert, taking po well no complains of pain tolerted paracentesis 05/12- 7 L out up and ambulating- gait steady no BM yet - + flatus no reported bleeding/rectum Physical Exam Vital signs: Vital Signs 05/12/18 12:00 05/12/18 12:35 05/12/18 14:59 Temperature 97.6 F 97.9 F Pulse Rate 77 72 Respiratory Rate 18 18 18 Blood Pressure 126/89 114/81 Pulse Oximetry 95 95 05/12/18 16:00 05/12/18 18:30 05/12/18 20:00 Temperature 97.3 F L 98.1 F Pulse Rate 71 79 Respiratory Rate 18 18 20 Blood Pressure 124/84 136/80 Pulse Oximetry 95 95 05/12/18 23:35 05/13/18 00:00 05/13/18 02:35 Temperature 97.6 F Pulse Rate 75 Respiratory Rate 18 20 18 Blood Pressure 118/71 Pulse Oximetry 94 L 05/13/18 04:00 05/13/18 06:00 05/13/18 08:00 Temperature 97.8 F 98.4 F Pulse Rate 73 76 Respiratory Rate 20 18 16 Blood Pressure 113/74 108/63 Pulse Oximetry 97 95 05/13/18 09:49 Temperature Pulse Rate Respiratory Rate 18 Blood Pressure Pulse Oximetry Intake & Output 05/12/18 05/13/18 05/13/18 18:59 06:59 18:59 Intake Total 1080.5 / 1080.5 420 / 420 Output Total 400 / 400 Balance 680.5 / 680.5 420 / 420 Intake: IV 600.5 / 600.5 SandoSTATIN Inj 500 MCG In NS 500.5 / 500.5 Inj 500 ML @ 25 MCG/HR 25.02 mls/hr IV.CONT .Q20H1M [place] Rx#: [id number] Protonix Inj 80 MG In NS Inj 100 / 100 100 ML @ 10 mls/hr IV.CONT CONT [place] Rx#:[id number] Oral 480 / 480 420 / 420 Output: Urine 400 / 400 Other: # Voids 3 Date of Last Bowel Movement 05/11/18 Narrative: Gen.: No acute distress Head: Normocephalic. Atraumatic. EENT:icteric Pupils equal round and reactive to light. Nose without drainage. Airway intact. Throat without injection. Cardiovascular: Regular rate and rhythm. No murmurs, rubs or gallops. Respiratory: Lungs clear to auscultation bilaterally. No wheezes or rhonchi. Abdomen: No peritoneal signs. soft, good bowel sounds, mild fluid wave non tender, no guarding Musculoskeletal: No gross deformities. No edema. Skin: No obvious rashes or erythema. Neuro: Sensory and motor grossly intact. Cranial nerves II through XII grossly intact. Results - Labs CBC & Chem 7: 05/12/18 19:30 05/11/18 17:40 Laboratory Results - last 24 hr 05/12/18 05/12/18 05/12/18 11:13 14:32 19:30 WBC 17.5 H RBC 4.09 L Hgb 13.5 13.5 Hct 39.5 39.5 MCV 96.4 MCH 32.9 MCHC 34.1 RDW 15.6 Plt Count 298 MPV 8.5 PT 17.4 H INR 1.7 Ammonia Alpha Fetoprotein Tumor Marker AFP HCG, Quant Gestational Age AFP MoM AFP Interpretation HCG MoM Unconj (Free) Estriol Unconj Estriol MoM Down's Maternal Age Risk Down Syndrome Risk Trisomy 18 Risk NTD Risk Assessment 05/12/18 05/12/18 05/13/18 19:30 19:30 07:22 WBC RBC Hgb Hct MCV MCH MCHC RDW Plt Count MPV PT INR Ammonia 73 H Alpha Fetoprotein Cancelled Tumor Marker AFP 1075.9 H HCG, Quant Cancelled Gestational Age Cancelled AFP MoM Cancelled AFP Interpretation Cancelled HCG MoM Cancelled Unconj (Free) Estriol Cancelled Unconj Estriol MoM Cancelled Down's Maternal Age Risk Cancelled Down Syndrome Risk Cancelled Trisomy 18 Risk Cancelled NTD Risk Assessment Cancelled 05/13/18 07:22 WBC RBC Hgb Hct MCV MCH MCHC RDW Plt Count MPV PT 15.6 H INR 1.5 Ammonia Alpha Fetoprotein Tumor Marker AFP HCG, Quant Gestational Age AFP MoM AFP Interpretation HCG MoM Unconj (Free) Estriol Unconj Estriol MoM Down's Maternal Age Risk Down Syndrome Risk Trisomy 18 Risk NTD Risk Assessment - Imaging Impressions Paracentesis Ultrasound 05/12/18 00:00 CONCLUSION: 1. Uncomplicated large volume therapeutic paracentesis. Assessment and Plan - Plan 52 years old male Lower GI bleed IV Protonix- change to po DC octreotide H and H stable Gastroenterology consulted, appreciate recommendations- plan for possible scope Transfuse as needed Hepatitis C cirrhosis/obstructive jaundice Recurrent ascites S/P Paracentesis /- 7 L out History of PV thrombosis per pt on Xarelto as OP- reviewed GI notes- no need to be on Xarelto for this - will DC altogether Continue propanolol, Lasix, Spironolactone Leukocytosis- afebrile-maybe from malignancy -recheck today REcent diagnosis of cholangiocarcinoma per patient unable to go to Oncology for ff up - no insurance seen by Dr. Jatinder Hart - surgery was consulted UP and ambulating
--- NOTE | 2018-05-13 15:19 | P.CONGS ---
[facility] Gen Surgery Consult Note Consult date: 05/13/18 Reason for consult: other (Cholangiocarcinoma) Requesting physician: Olivia Tobias Narrative: This is a 52 year old male with a past medical history of hepatitis C, portal hypertension, portal vein thromboses, cirrhosis and a recent diagnosis of cholangiocarcinoma. The patient reports he had lost about 50 pounds unintentionally over the past 4 months or so. He was admitted to the hospital several weeks ago with ascites and and had a CT guided liver biopsy on April 05 which came back with cholangiocarcinoma. He was given a referral to follow up as an outpatient with Dr. Gamble, but has not been able to follow up. He came to the ED two days ago with complaints of lower GI bleed and abdominal distention. The patient has had a paracentesis with removal of 7, 000 ml clear yellow fluid. Of note, the patient does report does report a history of heavy ETOH use in his 20s. He did continue to drink through his 30s and 40s but much less than in his 20s. He has been abstinent of alcohol for the past five years. A Surgical Oncology consultation has been requested. 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 (Acute) Portal hypertension (Acute) Obstructive jaundice (Acute) Elevated liver enzymes (Acute) Portal vein thrombosis (Acute) Cirrhosis (Acute) Cholangiocarcinoma - Surgical History Surgical History: Surgical History (Last Reviewed 05/13/18 @ 15:12 by FABRICE Bynum) History of hernia surgery (Acute) - Family History Family History: Family History (Last Reviewed 05/11/18 @ 20:13 by Ariella Chacon MD) Other Unknown family medical history - Tobacco History Second Hand Smoke Exposure: Yes Tobacco Use In Past 30 Days: Yes Smoking Status: Current some day smoker Tobacco Type: Cigarettes - Alcohol History How Often Do You Have a Drink Containing Alcohol: Never - Substance Use History Substance History: No History of Abuse - Travel History History of Recent Travel: No - Immunization History Tetanus Immunization: Unsure Hx Influenza Vaccine This Season: No Medications and Allergies Allergies Allergy/AdvReac Type Severity Reaction Status Date / Time No Known Allergies AdvReac Unknown Uncoded 01/23/18 10:43 Active Medications: Active Medications Furosemide (Lasix) 40 mg PO DAILY [facility] Last Admin: 05/13/18 09:38 Dose: 40 mg Morphine Sulfate (Morphine Inj) 0.5 mg IV.PUSH Q4H PRN PRN Reason: pain > 4 Last Admin: 05/13/18 12:57 Dose: 0.5 mg Ondansetron HCl (Zofran Inj) 4 mg IV.PUSH Q6H PRN PRN Reason: NAUSEA OR VOMITING Last Admin: 05/12/18 04:29 Dose: 4 mg Pantoprazole Sodium (Protonix) 40 mg PO DAILY [facility] [place] Last Admin: 05/13/18 11:04 Dose: 40 mg Phytonadione (Vitamin K Inj) 10 mg SQ DAILY [facility] [place] Stop: 05/14/18 23:59 Last Admin: 05/13/18 09:39 Dose: 10 mg Propranolol HCl (Inderal) 20 mg PO BID [facility] [place] Last Admin: 05/13/18 09:38 Dose: 20 mg Sodium Chloride (Ns Flush) 2 ml IV.FLUSH PRN PRN PRN Reason: FLUSH AFTER USING IV ACCESS Spironolactone (Aldactone) 100 mg PO DAILY [facility] [place] Last Admin: 05/13/18 09:48 Dose: 100 mg Exam Vital signs: Vital Signs 05/12/18 16:00 05/12/18 18:30 05/12/18 20:00 Temperature 97.3 F L 98.1 F Pulse Rate 71 79 Respiratory Rate 18 18 20 Blood Pressure 124/84 136/80 Pulse Oximetry 95 95 05/12/18 23:35 05/13/18 00:00 05/13/18 02:35 Temperature 97.6 F Pulse Rate 75 Respiratory Rate 18 20 18 Blood Pressure 118/71 Pulse Oximetry 94 L 05/13/18 04:00 05/13/18 06:00 05/13/18 08:00 Temperature 97.8 F 98.4 F Pulse Rate 73 76 Respiratory Rate 20 18 16 Blood Pressure 113/74 108/63 Pulse Oximetry 97 95 05/13/18 09:49 05/13/18 12:00 Temperature 97.9 F Pulse Rate 71 Respiratory Rate 18 16 Blood Pressure 111/75 Pulse Oximetry 94 L Intake & Output 05/12/18 05/13/18 05/13/18 18:59 06:59 18:59 Intake Total 1080.5 / 1080.5 420 / 420 475.5 / 475.5 Output Total 400 / 400 Balance 680.5 / 680.5 420 / 420 475.5 / 475.5 Intake: IV 600.5 / 600.5 475.5 / 475.5 SandoSTATIN Inj 500 MCG In NS 500.5 / 500.5 475.5 / 475.5 Inj 500 ML @ 25 MCG/HR 25.02 mls/hr IV.CONT .Q20H1M [place] Rx#: [id number] Protonix Inj 80 MG In NS Inj 100 / 100 100 ML @ 10 mls/hr IV.CONT CONT [place] Rx#:[id number] Oral 480 / 480 420 / 420 Output: Urine 400 / 400 Other: # Voids 3 Date of Last Bowel Movement 05/11/18 05/11/18 Narrative: GENERAL: Chronically ill appearing 52 year old male resting in bed in no acute distress. SKIN: Jaundice skin. HEAD: Atraumatic. Normocephalic. EYES: Pupils equal and round. Jaundice sclera. ENT: No nasal bleeding or discharge. Mucous membranes pink and moist. NECK: Trachea midline. CARDIOVASCULAR: Regular rate and rhythm. RESPIRATORY: No accessory muscle use. Clear to auscultation. Breath sounds equal bilaterally. GASTROINTESTINAL: Abdomen is large soft, distended. RUQ tenderness with palpation. MUSCULOSKELETAL: Extremities without clubbing, cyanosis, or edema. No obvious deformities. NEUROLOGICAL: Awake and alert. No obvious cranial nerve deficits. Motor grossly within normal limits. Five out of 5 muscle strength in the arms and legs. Normal speech. PSYCHIATRIC: Appropriate mood and affect; insight and judgment normal. Results - Labs 05/12/18 19:30 05/11/18 17:40 Laboratory Results - last 24 hr 05/12/18 05/12/18 05/12/18 19:30 19:30 19:30 Hgb 13.5 Hct 39.5 PT INR Ammonia Alpha Fetoprotein Cancelled Tumor Marker AFP 1075.9 H HCG, Quant Cancelled Gestational Age Cancelled AFP MoM Cancelled AFP Interpretation Cancelled HCG MoM Cancelled Unconj (Free) Estriol Cancelled Unconj Estriol MoM Cancelled Down's Maternal Age Risk Cancelled Down Syndrome Risk Cancelled Trisomy 18 Risk Cancelled NTD Risk Assessment Cancelled 05/13/18 05/13/18 07:22 07:22 Hgb Hct PT 15.6 H INR 1.5 Ammonia 73 H Alpha Fetoprotein Tumor Marker AFP HCG, Quant Gestational Age AFP MoM AFP Interpretation HCG MoM Unconj (Free) Estriol Unconj Estriol MoM Down's Maternal Age Risk Down Syndrome Risk Trisomy 18 Risk NTD Risk Assessment - Imaging Imaging: ITS Impressions Paracentesis Ultrasound 05/12/18 00:00 CONCLUSION: 1. Uncomplicated large volume therapeutic paracentesis. Assessment and Plan - Assessment (1) Cholangiocarcinoma Code(s): C22.1 - Intrahepatic bile duct carcinoma Status: Acute Plan: 52 year old male with recent diagnosis of cholangiocarcinoma -No surgical plans as inpatient at this time -May need to consider Hospice Care -Diet as tolerated -Patient can follow up with Dr. Gamble in the upcoming weeks for further discussion if he wishes to -Thank you for this consult - Plan Discussed Condition With: Dr. Mavis Lindsey RN Mr. Via - Attending Attestation The exam, history, and the medical decision-making described in the above note were completed with the assistance of the mid-level provider. I reviewed and agree with the findings presented. I attest that I had a [id number] encounter with the patient on the same day, and personally performed and documented my assessment and findings in the medical record. patient with large intrahepatic cholangiocarcinoma, in setting of Benji C Cirrhosis abdomen soft, non-tender, distended with ascites long d/w patient about disease (cirrhosis and carcinoma), tumor is unresectable I discussed options to include non-operative management (radiation etc.), transplant evaluation, vs Hospice, all questions answered to his satisfaction Patient currently wants to go to hospice, I feel this is appropriate surgery will sign off
--- NOTE | 2018-05-13 16:24 | P.PNGI ---
Subjective Interval history: Patient laying supine in bed awake and alert and oriented. Tearful at this time as he reports the of a loved one. Reports mild abdominal pain denies any nausea or vomiting. Denies any noted bleeding. <CurtisLinda - Last Filed: 05/13/18 16:13> Physical Exam Vital signs: Vital Signs 05/12/18 18:30 05/12/18 20:00 05/12/18 23:35 Temperature 98.1 F Pulse Rate 79 Respiratory Rate 18 20 18 Blood Pressure 136/80 Pulse Oximetry 95 05/13/18 00:00 05/13/18 02:35 05/13/18 04:00 Temperature 97.6 F 97.8 F Pulse Rate 75 73 Respiratory Rate 20 18 20 Blood Pressure 118/71 113/74 Pulse Oximetry 94 L 97 05/13/18 06:00 05/13/18 08:00 05/13/18 09:49 Temperature 98.4 F Pulse Rate 76 Respiratory Rate 18 16 18 Blood Pressure 108/63 Pulse Oximetry 95 05/13/18 12:00 05/13/18 16:09 Temperature 97.9 F Pulse Rate 71 Respiratory Rate 16 18 Blood Pressure 111/75 Pulse Oximetry 94 L Intake & Output 05/12/18 05/13/18 05/13/18 18:59 06:59 18:59 Intake Total 1080.5 / 1080.5 420 / 420 475.5 / 475.5 Output Total 400 / 400 Balance 680.5 / 680.5 420 / 420 475.5 / 475.5 Intake: IV 600.5 / 600.5 475.5 / 475.5 SandoSTATIN Inj 500 MCG In NS 500.5 / 500.5 475.5 / 475.5 Inj 500 ML @ 25 MCG/HR 25.02 mls/hr IV.CONT .Q20H1M [facility] Rx#: [id number] Protonix Inj 80 MG In NS Inj 100 / 100 100 ML @ 10 mls/hr IV.CONT CONT [facility] Rx#:[id number] Oral 480 / 480 420 / 420 Output: Urine 400 / 400 Other: # Voids 3 Date of Last Bowel Movement 05/11/18 05/11/18 - Constitutional mild distress, chronically ill appearing - Routine HEENT Exam Head: Present: normocephalic Eye: Present: conjunctival icterus - Routine Respiratory Exam Present: CTA bilaterally. Absent: accessory muscle use - Routine Cardiovascular Exam Present: RRR - Routine Abdominal Exam Present: soft, normoactive bowel sounds, distended. Absent: tenderness, guarding, firm - Routine Extremities Exam Present: full ROM. Absent: edema - Routine Skin Exam Present: dry, warm, jaundice - Routine Neurological Exam Present: alert, oriented X3 - Detailed Neurological Exam: Coma Scale Eye Opening: Spontaneous Verbal Response: Oriented Motor Response: Obey commands [place] Coma Scale Total: 15 - Routine Psychiatric Exam Present: normal affect, cooperative <CurtisLinda - Last Filed: 05/13/18 16:13> Vital signs: Vital Signs 05/12/18 18:30 05/12/18 20:00 05/12/18 23:35 Temperature 98.1 F Pulse Rate 79 Respiratory Rate 18 20 18 Blood Pressure 136/80 Pulse Oximetry 95 05/13/18 00:00 05/13/18 02:35 05/13/18 04:00 Temperature 97.6 F 97.8 F Pulse Rate 75 73 Respiratory Rate 20 18 20 Blood Pressure 118/71 113/74 Pulse Oximetry 94 L 97 05/13/18 06:00 05/13/18 08:00 05/13/18 09:49 Temperature 98.4 F Pulse Rate 76 Respiratory Rate 18 16 18 Blood Pressure 108/63 Pulse Oximetry 95 05/13/18 12:00 05/13/18 16:00 05/13/18 16:09 Temperature 97.9 F 97.8 F Pulse Rate 71 79 Respiratory Rate 16 16 18 Blood Pressure 111/75 117/81 Pulse Oximetry 94 L 94 L Intake & Output 05/12/18 05/13/18 05/13/18 18:59 06:59 18:59 Intake Total 1080.5 / 1080.5 420 / 420 475.5 / 475.5 Output Total 400 / 400 Balance 680.5 / 680.5 420 / 420 475.5 / 475.5 Intake: IV 600.5 / 600.5 475.5 / 475.5 SandoSTATIN Inj 500 MCG In NS 500.5 / 500.5 475.5 / 475.5 Inj 500 ML @ 25 MCG/HR 25.02 mls/hr IV.CONT .Q20H1M [facility] Rx#: [id number] Protonix Inj 80 MG In NS Inj 100 / 100 100 ML @ 10 mls/hr IV.CONT CONT [facility] Rx#:[id number] Oral 480 / 480 420 / 420 Output: Urine 400 / 400 Other: # Voids 3 Date of Last Bowel Movement 05/11/18 05/11/18 <Abrahan Muñiz - Last Filed: 05/13/18 17:19> Results - Labs CBC & Chem 7: 05/12/18 19:30 05/11/18 17:40 Laboratory Results - last 24 hr 05/12/18 05/12/18 05/12/18 19:30 19:30 19:30 Hgb 13.5 Hct 39.5 PT INR Ammonia Alpha Fetoprotein Cancelled Tumor Marker AFP 1075.9 H HCG, Quant Cancelled Gestational Age Cancelled AFP MoM Cancelled AFP Interpretation Cancelled HCG MoM Cancelled Unconj (Free) Estriol Cancelled Unconj Estriol MoM Cancelled Down's Maternal Age Risk Cancelled Down Syndrome Risk Cancelled Trisomy 18 Risk Cancelled NTD Risk Assessment Cancelled 05/13/18 05/13/18 07:22 07:22 Hgb Hct PT 15.6 H INR 1.5 Ammonia 73 H Alpha Fetoprotein Tumor Marker AFP HCG, Quant Gestational Age AFP MoM AFP Interpretation HCG MoM Unconj (Free) Estriol Unconj Estriol MoM Down's Maternal Age Risk Down Syndrome Risk Trisomy 18 Risk NTD Risk Assessment - Imaging Impressions Paracentesis Ultrasound 05/12/18 00:00 CONCLUSION: 1. Uncomplicated large volume therapeutic paracentesis. <Linda Curtis - Last Filed: 05/13/18 16:13> - Labs CBC & Chem 7: 05/12/18 19:30 05/11/18 17:40 Laboratory Results - last 24 hr 05/12/18 05/12/18 05/12/18 19:30 19:30 19:30 Hgb 13.5 Hct 39.5 PT INR Ammonia Alpha Fetoprotein Cancelled Tumor Marker AFP 1075.9 H HCG, Quant Cancelled Gestational Age Cancelled AFP MoM Cancelled AFP Interpretation Cancelled HCG MoM Cancelled Unconj (Free) Estriol Cancelled Unconj Estriol MoM Cancelled Down's Maternal Age Risk Cancelled Down Syndrome Risk Cancelled Trisomy 18 Risk Cancelled NTD Risk Assessment Cancelled 05/13/18 05/13/18 07:22 07:22 Hgb Hct PT 15.6 H INR 1.5 Ammonia 73 H Alpha Fetoprotein Tumor Marker AFP HCG, Quant Gestational Age AFP MoM AFP Interpretation HCG MoM Unconj (Free) Estriol Unconj Estriol MoM Down's Maternal Age Risk Down Syndrome Risk Trisomy 18 Risk NTD Risk Assessment <Abrahan Muñiz - Last Filed: 05/13/18 17:19> Assessment and Plan - Plan Assessment: Cirrhosis -05/11/2018 total bilirubin 7.3 AST 380 ALT 75 alkaline phosphatase 656 albumin 2.2 ammonia level 56. We will continue to monitor liver enzymes. Lower GI bleeding-patient reports no noted bleeding today but states he has noted bright red bleeding per rectum with dark brown stools for the past 4-5 days. Of note, patient states he resumed taking Xarelto as ordered for portal vein thrombosis. 05/12/2018 hemoglobin 13.7 hematocrit 40.2 and stable at this time. Ascites-patient presented to ER for this admission due to increasing abdominal girth with ascites. Patient states he has been experiencing increasing shortness of breath when supine over the last week. States difficult to take a deep breath at times. Last paracentesis done May 04, 2018 with total drainage of 8200 cc of clear yellow fluid. INR on 05/11/[address] Muñoz will check INR today. Will need INR less than 1.5 for therapeutic paracentesis. 05/13/18-patient endorsing abdomen feels less distended than yesterday. We will continue diuretics and low-salt diet to help control ascites. Ammonia level noted 73. Will add lactulose to medication regimen and monitor same. Hemoglobin 13.5 hematocrit 39.5. Tumor marker AFP elevated at 1075.9. Concerning for hepatocellular carcinoma in addition to cholangiocarcinoma. We will continue to monitor liver function tests in the a.m. Patient denies any noted bleeding. Plan: -Regular diet as tolerated -Monitor for bleeding -Monitor LFTs and coagulation studies -Continue Inderal -Continue diuretics -Will will add lactulose twice daily -Avoid hepatotoxins -Monitor for hepatic encephalopathy change in mental status -Supportive care -Further recommendations to follow This patient has been seen by myself and Dr. Muñiz and this note is written on his behalf - Attending Attestation Dr. Muñiz <Linda Curtis - Last Filed: 05/13/18 16:13> - Plan Patient seen and examined Continue with current supportive care Monitor labs Patient with biopsy-proven cholangiocarcinoma with a rising alpha-fetoprotein in the background of cirrhosis and as such most likely has hepatocellular carcinoma in addition to the cholangiocarcinoma I had a lengthy discussion with the radiology department with pathology and with oncology At this point the patient does not appear to be a good candidate for chemotherapy in any which way and I doubt that he is even a candidate for surgery nor does he appear to be a candidate for embolization especially now knowing that he has probably 2 cancers involving the liver At this point it appears that best course of action would be hospice and comfort care <Abrahan Muñiz E - Last Filed: 05/13/18 17:19>
--- NOTE | 2018-05-13 18:22 | P.PNONC ---
Subjective Interval history: Confirm that his of a massive heart attack the other day. She had hypertension and chest pains but was very worried about him. He is saddened by the events. He is worried about his financial situation as he does not know how he is going to pay for his rent. She was his support. Objective Vital Signs/Intake & Output: Vital Signs 05/12/18 18:30 05/12/18 20:00 05/12/18 23:35 Temperature 98.1 F Pulse Rate 79 Respiratory Rate 18 20 18 Blood Pressure 136/80 Pulse Oximetry 95 05/13/18 00:00 05/13/18 02:35 05/13/18 04:00 Temperature 97.6 F 97.8 F Pulse Rate 75 73 Respiratory Rate 20 18 20 Blood Pressure 118/71 113/74 Pulse Oximetry 94 L 97 05/13/18 06:00 05/13/18 08:00 05/13/18 09:49 Temperature 98.4 F Pulse Rate 76 Respiratory Rate 18 16 18 Blood Pressure 108/63 Pulse Oximetry 95 05/13/18 12:00 05/13/18 16:00 05/13/18 16:09 Temperature 97.9 F 97.8 F Pulse Rate 71 79 Respiratory Rate 16 16 18 Blood Pressure 111/75 117/81 Pulse Oximetry 94 L 94 L Intake & Output 05/12/18 05/13/18 05/13/18 18:59 06:59 18:59 Intake Total 1080.5 / 1080.5 420 / 420 475.5 / 475.5 Output Total 400 / 400 Balance 680.5 / 680.5 420 / 420 475.5 / 475.5 Intake: IV 600.5 / 600.5 475.5 / 475.5 SandoSTATIN Inj 500 MCG In NS 500.5 / 500.5 475.5 / 475.5 Inj 500 ML @ 25 MCG/HR 25.02 mls/hr IV.CONT .Q20H1M [facility] Rx#: [id number] Protonix Inj 80 MG In NS Inj 100 / 100 100 ML @ 10 mls/hr IV.CONT CONT [facility] Rx#:[id number] Oral 480 / 480 420 / 420 Output: Urine 400 / 400 Other: # Voids 3 Date of Last Bowel Movement 05/11/18 05/11/18 Result Diagrams: 05/12/18 19:30 05/11/18 17:40 Laboratory Results: Laboratory Results - last 24 hr 05/12/18 05/12/18 05/12/18 19:30 19:30 19:30 Hgb 13.5 Hct 39.5 PT INR Ammonia Alpha Fetoprotein Cancelled Tumor Marker AFP 1075.9 H HCG, Quant Cancelled Gestational Age Cancelled AFP MoM Cancelled AFP Interpretation Cancelled HCG MoM Cancelled Unconj (Free) Estriol Cancelled Unconj Estriol MoM Cancelled Down's Maternal Age Risk Cancelled Down Syndrome Risk Cancelled Trisomy 18 Risk Cancelled NTD Risk Assessment Cancelled 05/13/18 05/13/18 07:22 07:22 Hgb Hct PT 15.6 H INR 1.5 Ammonia 73 H Alpha Fetoprotein Tumor Marker AFP HCG, Quant Gestational Age AFP MoM AFP Interpretation HCG MoM Unconj (Free) Estriol Unconj Estriol MoM Down's Maternal Age Risk Down Syndrome Risk Trisomy 18 Risk NTD Risk Assessment Medications: Active Medications Generic Name Dose Route Start Last Admin Trade Name Freq PRN Reason Stop Dose Admin Furosemide 40 mg 05/12/18 17:54 05/13/18 09:38 Lasix PO 40 mg DAILY [facility] Administration Morphine Sulfate 0.5 mg 05/13/18 10:01 05/13/18 16:01 Morphine Inj IV.PUSH 0.5 mg Q4H PRN Administration pain > 4 Ondansetron HCl 4 mg 05/11/18 21:40 05/12/18 04:29 Zofran Inj IV.PUSH 4 mg Q6H PRN Administration NAUSEA OR VOMITING Pantoprazole Sodium 40 mg 05/13/18 10:15 05/13/18 11:04 Protonix PO 40 mg DAILY [facility] Administration Phytonadione 10 mg 05/12/18 18:00 05/13/18 09:39 Vitamin K Inj SQ 05/14/18 23:59 10 mg DAILY [facility] Administration Propranolol HCl 20 mg 05/11/18 21:00 05/13/18 09:38 Inderal PO 20 mg BID [facility] Administration Spironolactone 100 mg 05/13/18 09:00 05/13/18 09:48 Aldactone PO 100 mg DAILY [facility] Administration Objective Remarks: GENERAL: Jaundiced cachectic chronic ill-appearing, well-developed patient. SKIN: Warm and dry. HEAD: Normocephalic. EYES: No scleral icterus. No injection or drainage. NECK: Supple, trachea midline. No JVD or lymphadenopathy. LYMPHATIC: No adenopathy. CARDIOVASCULAR: Regular rate and rhythm without murmurs. RESPIRATORY: Breath sounds equal bilaterally. No accessory muscle use. GASTROINTESTINAL: Abdomen soft, distended with fluid wave. Less so than yesterday EXTREMITIES: No cyanosis, or edema. MUSCULOSKELETAL: Adequate muscle tone. NEUROLOGICAL: No obvious focal deficit. Awake, alert, and oriented x3. PSYCHIATRIC: Appropriate mood and affect; insight and judgment normal. Assessment/Plan (1) Cholangiocarcinoma Code(s): C22.1 - Intrahepatic bile duct carcinoma Status: Acute - Plan 52-year-old man with cirrhosis and chronic active hepatitis C untreated. He has decompensated liver disease with tense ascites requiring repeated paracentesis. He is diagnosed with cholangiocarcinoma but with elevated alpha- fetoprotein this puts into consideration possibility hepatocellular cancer. This was discussed with Dr. Muñiz of gastroenterology. Nevertheless patient's performance status is quite poor. Would be difficult for him to tolerate liver resection. He was seen by surgery consult. He is indeed not a surgical candidate. He is also not a candidate for ablation or local therapy in light of his poor liver reserve. We discussed the option of hospice Consult. He is agreeable to consider hospice care. He has an appointment with oncology clinic on outpatient basis next week. He is offered to continue that appointment. He can be discharged from oncology standpoint with hospice following.
[2018-05-14] MEDS: Morphine Sulfate Inj 2 MG/ML Vial IV.PUSH PRN ×3 (04:18→13:55)
--- NOTE | 2018-05-14 08:47 | P.PN ---
Subjective Interval history: awake and alert, states some right upper quadrant discomfort no nausea or vomiting Physical Exam Vital signs: Vital Signs 05/13/18 09:49 05/13/18 12:00 05/13/18 16:00 Temperature 97.9 F 97.8 F Pulse Rate 71 79 Respiratory Rate 18 16 16 Blood Pressure 111/75 117/81 Pulse Oximetry 94 L 94 L 05/13/18 16:09 05/13/18 20:00 05/13/18 23:33 Temperature 98.1 F Pulse Rate 76 Respiratory Rate 18 18 18 Blood Pressure 103/72 Pulse Oximetry 95 05/14/18 00:00 05/14/18 04:00 Temperature 98.9 F 98.1 F Pulse Rate 75 80 Respiratory Rate 18 18 Blood Pressure 95/59 L 109/80 Pulse Oximetry 95 95 Intake & Output 05/13/18 05/14/18 05/14/18 18:59 06:59 18:59 Intake Total 475.5 / 475.5 Balance 475.5 / 475.5 Weight 79.9 kg Intake: IV 475.5 / 475.5 SandoSTATIN Inj 500 MCG In NS 475.5 / 475.5 Inj 500 ML @ 25 MCG/HR 25.02 mls/hr IV.CONT .Q20H1M [facility] Rx#: [id number] Other: # Voids 2 Date of Last Bowel Movement 05/11/18 05/11/18 Results - Labs CBC & Chem 7: 05/12/18 19:30 05/11/18 17:40 Assessment and Plan - Plan 52 years old male Lower GI bleed- resolved po PPI H and H stable Gastroenterology consulted, appreciate recommendations- plan for ? possible scope Transfuse as needed Hepatitis C cirrhosis/obstructive jaundice Recurrent ascites S/P Paracentesis 05/12- 7 L out History of PV thrombosis per pt was on Xarelto as OP- reviewed GI notes- no need to be on Xarelto for this - discontinued Continue propanolol, Lasix, Spironolactone patient will likely need periodic paracentesis- can be done as OP - part of comfort measures - if under Hospice d/w him pain will be managed under Hospice Leukocytosis- afebrile- from malignancy REcent diagnosis of cholangiocarcinoma per patient unable to go to Oncology for ff up - no insurance seen by Dr. Jatinder Hart - surgery was consulted- not candidate for surgery Hospice consulted DC planning- patient lives alone but daughter lives nearby- -next door - if accepted by Hospice- ? care center vs home hospice UP and ambulating
[2018-05-14] MEDS: Furosemide 40 MG Tablet PO SCH (09:50)
[2018-05-14] MEDS: Phytonadione Inj 10 MG/ML Vial SQ SCH (09:51)
[2018-05-14 10:45] VITALS: RESP 20; O2SAT 96
--- NOTE | 2018-05-14 14:49 | P.PNGI ---
Subjective Interval history: Patient laying in bed awake and alert. Denies any noted bleeding. Eating lunch meal without any reported nausea or vomiting. Discussed plan for hospice care and states that he thinks this is the best decision for him at this time. <Linda Curtis - Last Filed: 05/14/18 14:38> Physical Exam Vital signs: Vital Signs 05/13/18 16:00 05/13/18 16:09 05/13/18 20:00 Temperature 97.8 F 98.1 F Pulse Rate 79 76 Respiratory Rate 16 18 18 Blood Pressure 117/81 103/72 Pulse Oximetry 94 L 95 05/13/18 23:33 05/14/18 00:00 05/14/18 04:00 Temperature 98.9 F 98.1 F Pulse Rate 75 80 Respiratory Rate 18 18 18 Blood Pressure 95/59 L 109/80 Pulse Oximetry 95 95 05/14/18 08:00 05/14/18 12:00 Temperature 97.6 F 97.3 F L Pulse Rate 82 70 Respiratory Rate 20 20 Blood Pressure 111/83 107/73 Pulse Oximetry 96 96 Intake & Output 05/13/18 05/14/18 05/14/18 18:59 06:59 18:59 Intake Total 475.5 / 475.5 Balance 475.5 / 475.5 Weight 79.9 kg Intake: IV 475.5 / 475.5 SandoSTATIN Inj 500 MCG In NS 475.5 / 475.5 Inj 500 ML @ 25 MCG/HR 25.02 mls/hr IV.CONT .Q20H1M [facility] Rx#: [id number] Other: # Voids 2 Date of Last Bowel Movement 05/11/18 05/11/18 - Constitutional no acute distress - Routine HEENT Exam Head: Present: normocephalic Eye: Present: conjunctival icterus - Routine Respiratory Exam Present: CTA bilaterally - Routine Cardiovascular Exam Present: RRR - Routine Abdominal Exam Present: soft, normoactive bowel sounds, distended. Absent: guarding - Routine Extremities Exam Present: full ROM, pulses intact - Routine Skin Exam Present: dry, warm, jaundice - Routine Neurological Exam Present: alert, oriented X3 - Detailed Neurological Exam: Coma Scale Eye Opening: Spontaneous Verbal Response: Oriented Motor Response: Obey commands [place] Coma Scale Total: 15 - Routine Psychiatric Exam Present: normal affect, paranoid <Linda Curtis - Last Filed: 05/14/18 14:38> Vital signs: Vital Signs 05/13/18 16:00 05/13/18 16:09 05/13/18 20:00 Temperature 97.8 F 98.1 F Pulse Rate 79 76 Respiratory Rate 16 18 18 Blood Pressure 117/81 103/72 Pulse Oximetry 94 L 95 05/13/18 23:33 05/14/18 00:00 05/14/18 04:00 Temperature 98.9 F 98.1 F Pulse Rate 75 80 Respiratory Rate 18 18 18 Blood Pressure 95/59 L 109/80 Pulse Oximetry 95 95 05/14/18 08:00 05/14/18 12:00 Temperature 97.6 F 97.3 F L Pulse Rate 82 70 Respiratory Rate 20 20 Blood Pressure 111/83 107/73 Pulse Oximetry 96 96 Intake & Output 05/13/18 05/14/18 05/14/18 18:59 06:59 18:59 Intake Total 475.5 / 475.5 Balance 475.5 / 475.5 Weight 79.9 kg Intake: IV 475.5 / 475.5 SandoSTATIN Inj 500 MCG In NS 475.5 / 475.5 Inj 500 ML @ 25 MCG/HR 25.02 mls/hr IV.CONT .Q20H1M [facility] Rx#: [id number] Other: # Voids 2 Date of Last Bowel Movement 05/11/18 05/11/18 <Kristen Edgar - Last Filed: 05/14/18 14:56> Results - Labs CBC & Chem 7: 05/12/18 19:30 05/11/18 17:40 <Linda Curtis - Last Filed: 05/14/18 14:38> - Labs CBC & Chem 7: 05/12/18 19:30 05/11/18 17:40 <Kristen Edgar - Last Filed: 05/14/18 14:56> Assessment and Plan - Plan Assessment: Cirrhosis -05/11/2018 total bilirubin 7.3 AST 380 ALT 75 alkaline phosphatase 656 albumin 2.2 ammonia level 56. We will continue to monitor liver enzymes. Lower GI bleeding-patient reports no noted bleeding today but states he has noted bright red bleeding per rectum with dark brown stools for the past 4-5 days. Of note, patient states he resumed taking Xarelto as ordered for portal vein thrombosis. 05/12/2018 hemoglobin 13.7 hematocrit 40.2 and stable at this time. Ascites-patient presented to ER for this admission due to increasing abdominal girth with ascites. Patient states he has been experiencing increasing shortness of breath when supine over the last week. States difficult to take a deep breath at times. Last paracentesis done May 04, 2018 with total drainage of 8200 cc of clear yellow fluid. INR on 05/11/[address] Muñoz will check INR today. Will need INR less than 1.5 for therapeutic paracentesis. 05/13/18-patient endorsing abdomen feels less distended than yesterday. We will continue diuretics and low-salt diet to help control ascites. Ammonia level noted 73. Will add lactulose to medication regimen and monitor same. Hemoglobin 13.5 hematocrit 39.5. Tumor marker AFP elevated at 1075.9. Concerning for hepatocellular carcinoma in addition to cholangiocarcinoma. We will continue to monitor liver function tests in the a.m. Patient denies any noted bleeding. 05/14/18-patient resting, eating lunch meal. Denies any noted nausea or vomiting and denies any bleeding. Most recent hemoglobin 13.5 hematocrit 39.5 done on 05/12/2018. Patient denies increasing shortness of breath paracentesis done on 05/12/2018 with a total volume of 7000 cc of clear yellow fluid removed. Hospice has been consulted and patient states that he is agreeable for hospice care. Patient has cholangiocarcinoma and most likely hepatocellular carcinoma with poor prognosis. Plan: -Regular diet as tolerated -Monitor for any bleeding -Inderal -Diuretics -Lactulose-we will check ammonia level in a.m. -Supportive care -Comfort care -Further recommendations to follow This patient has been seen by myself and Dr. Edgar and this note is written on his behalf - Attending Attestation Dr. Edgar <Linda Curtis - Last Filed: 05/14/18 14:38> - Plan Seen and examined with [employer], going to hospice. GI will sign off. sofía <Kristen Edgar - Last Filed: 05/14/18 14:56>
--- NOTE | 2018-05-14 17:43 | P.DS ---
Date of admission: 05/11/18 18:46 Primary care physician: Zac Marie MD Anticipated date of discharge: 05/14/18 Brief History from admission: 52-year-old male with a past medical history significant for cirrhosis, obstructive jaundice, portal hypertension, ascites and hepatitis C presents to the emergency department for evaluation of abdominal swelling and shortness of breath times 6 days. The patient's last paracentesis was 2 weeks ago. His rn medicare is Dr. Muñiz. He denies any chest pain. He endorses intermittent bloody stools for the past week. He denies any chest pain no nausea/vomiting. No fever/chills. No lateralizing signs/symptoms. 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 Jatinder Hart - surgery was consulted- not candidate for surgery Hospice consulted DC planning- patient lives alone but daughter lives nearby- -next door - Hospice conuslted- - possibly home with hospice UP and ambulating - Time Spent with Patient Total time spent providing and/or coordinating discharge services: Greater than 30 minutes - Quality: VTE Deep Vein Thrombosis/Pulmonary Embolism Present on Admission: No Exam Vital signs: Vital Signs 05/13/18 20:00 05/13/18 23:33 05/14/18 00:00 Temperature 98.1 F 98.9 F Pulse Rate 76 75 Respiratory Rate 18 18 18 Blood Pressure 103/72 95/59 L Pulse Oximetry 95 95 05/14/18 04:00 05/14/18 08:00 05/14/18 12:00 Temperature 98.1 F 97.6 F 97.3 F L Pulse Rate 80 82 70 Respiratory Rate 18 20 20 Blood Pressure 109/80 111/83 107/73 Pulse Oximetry 95 96 96 Intake & Output 05/13/18 05/14/18 05/14/18 18:59 06:59 18:59 Intake Total 475.5 / 475.5 Balance 475.5 / 475.5 Weight 79.9 kg Intake: IV 475.5 / 475.5 SandoSTATIN Inj 500 MCG In NS 475.5 / 475.5 Inj 500 ML @ 25 MCG/HR 25.02 mls/hr IV.CONT .Q20H1M [place] Rx#: [id number] Other: # Voids 2 Date of Last Bowel Movement 05/11/18 05/11/18 Narrative: Gen.: No acute distress Head: Normocephalic. Atraumatic. EENT:icteric Pupils equal round and reactive to light. Nose without drainage. Airway intact. Throat without injection. Cardiovascular: Regular rate and rhythm. No murmurs, rubs or gallops. Respiratory: Lungs clear to auscultation bilaterally. No wheezes or rhonchi. Abdomen: No peritoneal signs. soft, good bowel sounds, mild fluid wave non tender, no guarding Musculoskeletal: No gross deformities. No edema. Skin: No obvious rashes or erythema. Neuro: Sensory and motor grossly intact. Cranial nerves II through XII grossly intact. Results Procedures completed during hospitalization: 05/12- larg volume paracentesis - Impressions ITS Impressions Paracentesis Ultrasound 05/12/18 00:00 CONCLUSION: 1. Uncomplicated large volume therapeutic paracentesis. Discharge Plan - Discharge Disposition Patient Disposition: 50 Hospice/Home - Discharge Condition Condition: Fair - Discharge Order Discharge Orders: Discharge Order (Routine); Ordered 05/14/18 Ordered By: Dorys Muñoz - Physicians Team Primary Care Provider: Zac Marie Attending Provider: Dorys Muñoz Other Providers: Abrahan Mñuiz MD ; Olivia Tobias MD ; Javier Gamble MD
[2018-05-14 18:22] VITALS: BP 116/79; PULSE 84; TEMP 97.6
== END 2018-05-14 19:52 | disposition hospice, home (50) ==
LOC: NEPC 15:34 → NEDA 18:46 → INTOOBSV 18:46 → N05 20:26
PROVIDERS: ADMIT Internal Medicine; ATTEND Internal Medicine
DX: B18.2 Chronic viral hepatitis C; R06.02 Shortness of breath; Z79.01 Long term (current) use of anticoagulants; K62.5 Hemorrhage of anus and rectum; Z85.05 Personal history of malignant neoplasm of liver; R19.00 Intra-abdominal and pelvic swelling, mass and lump, unspecified site; K74.60 Unspecified cirrhosis of liver; C22.1 Intrahepatic bile duct carcinoma; R18.8 Other ascites; F12.90 Cannabis use, unspecified, uncomplicated; F17.210 Nicotine dependence, cigarettes, uncomplicated; K76.6 Portal hypertension; K83.1 Obstruction of bile duct; I81 Portal vein thrombosis; K92.1 Melena